=== PATIENT | female | born 1955 | race Caucasian/White ===

== ENCOUNTER 2018-09-11 01:12 | Day surgery (SDC) | payer OTHER ==
[~2018-09-11] VITALS: Ht 172.7 cm; Wt 94.3 kg
[~2018-09-11 01:12] MED LIST: ADVAIR INHALER; ALBUTEROL; AMLO-127 PO; ASPIRIN; DULERAPT INH; ENAL20TA99 PO; ENALAPRIL; HCTZ; HCTZ25 PO; LEVO50TA80 PO; LOSA-54 PO; MON4 PO; MONT10TA4 PO; NAPR220C12 PO; OMEP40CA48 PO; PROP100T2 PO; VER100 PO; VERAPAMIL
[2018-09-11] MEDS ORDERED: PROPOFOL EMUL(*) 10MG/ML 20 ML 20 ML ONE (07:03)
[2018-09-11 07:21] VITALS: BP 132/80
[2018-09-11] MEDS ORDERED: LIDOCAINE/SOD BICARB 8.4% SYR ID ONE (07:40)
[2018-09-11] MEDS ORDERED: NORMOSOL R SOLN(*) 1000 ML BAG 1,000 ML IV PRN (07:40)
[2018-09-11 08:46] VITALS: BP 127/77
[2018-09-11 09:00] VITALS: BP 117/77
--- NOTE | 2018-09-11 09:00 | Short(Outpt) Discharge Summary ---
Discharge Summary Reason for Hosp/Final Diag: (1) Positive colorectal cancer screening using Cologuard test Status: Chronic Hospital Course & Plan: Colonoscopy completed without problems, normal (other than sigmoid diverticulosis) Departure Discharge to: Home, Self Care Discharge Instructions Home Meds Reported Medications Omeprazole (OMEPRAZOLE) 40 Mg Capsule.dr, 40 MG PO QDAY, CAP 08/19/18 Amlodipine Besylate (AMLODIPINE BESYLATE) 10 Mg Tablet, 1 TAB PO QDAY, TAB 08/19/18 Losartan/Hydrochlorothiazide (LOSARTAN-HCTZ 100-25 MG TAB) 1 Each Tablet, 1 EACH PO QDAY 08/19/18 Levothyroxine Sodium (SYNTHROID) 50 Mcg Tablet, 50 MCG PO QDAY, TAB 08/19/18 Mometasone/Formoterol (DULERA 200 MCG/5 MCG INHALER) 13 Gm Inh, 13 GM INH BID, INH 08/19/18 Naproxen Sodium (ALEVE) 220 Mg Capsule, 500 MG PO DAILY, CAPSULE 08/19/18 Montelukast Sodium (MONTELUKAST SODIUM) 10 Mg Tablet, 1 TAB PO QDAY, TAB 08/19/18 Hydrochlorothiazide (Hydrochlorothiazide) 25 Mg Tab, 25 MG PO QDAY, 0 Refills 11/03/09 [Albuterol] No Conflict Check 11/03/09 Diet: Regular Activity: As Tolerated Special Instructions: Your colonoscopy was completed without any problems and your prep was excellent (Good Job!!). I didn't find any polyps or cancers. The only finding was diverticuli in your sigmoid colon (condition is called diverticulosis). 40% of people have diverticulosis and 90% of them have no problems. 10% of people with diverticulosis can get an infection called diverticulitis which is normally treated with antibiotics without problems but occasionally requires surgery. I recommend that you eat a serving of fruit with breakfast, a serving of fruit and a serving of vegetables with lunch and two servings of vegetables with dinner. You can also eat a daily fiber supplement such as metamucil or citrucel to decrease the pressure in your colon to move the stool through to prevent more diverticuli from developing. I recommend that you have another colonoscopy in 10 years for continued colorectal cancer screening. VERNELL HERNANDEZ MD Sep 11, 2018 09:00
--- NOTE | 2018-09-11 09:00 | NUR ---
VSS. TOLERATING PO INTAKE.
--- NOTE | 2018-09-11 09:05 | NUR ---
PT. REQUESTING DISCHARGE. POST TIVA X20 MINS. WILL ALLOW DISCHARGE.
[2018-09-11 09:07] VITALS: BP 151/89
[2018-09-11 09:09] VITALS: BP 104/84
--- NOTE | 2018-09-11 09:16 | NUR ---
DISCHARGE INSTRUCTIONS REVIEWED.
== END 2018-09-11 09:30 | disposition home or self-care (01) ==
LOC: OR 01:12
PROVIDERS: ATTEND Surgery
DX: Z12.11 Encounter for screening for malignant neoplasm of colon (principal); K57.30 Diverticulosis of large intestine without perforation or abscess without bleeding
CPT/HCPCS: 00812; 45378; J2704

== ENCOUNTER 2018-12-14 08:41 | Inpatient (IN) | payer OTHER ==
[~2018-12-14] VITALS: Ht 171.4 cm; Wt 109.8 kg
[2018-12-14] MEDS ORDERED: NS(*) 0.9% 1000 ML BAG 1,000 ML IV ONE ×2 (09:00→09:50)
[2018-12-14] MEDS ORDERED: ONDANSETRON 4 MG/2 ML VIAL IVP ONE (09:00)
--- NOTE | 2018-12-14 09:00 | ER Report ---
History and Physical Time Seen By MD: 08:56 Hx. of Stated Complaint: abd pain HPI/ROS CHIEF COMPLAINT: Abdominal pain. HISTORY OF PRESENT ILLNESS: Patient is a 63-year-old female who presents to emergency department with approximately 24 hours of severe bilateral lower quadrant abdominal pain comes in waves. Associated with nausea vomiting and diarrhea. Patient states that she thinks she may have gotten food poisoning. She states she ate coleslaw from a deli and then a few hours later developed nausea vomiting and diarrhea with abdominal cramping this is persisted since Sunday morning around 5 AM until this morning. She states she noticed no mucus in her stool but did notice some bright red blood per rectum with the last bowel movement this morning. Patient states that her did eat the same coleslaw but was unaffected. Patient denies any prior history of abdominal problems including diverticulitis. The only abdominal surgery the patient had was a hysterectomy. She ports fevers and chills but her in the emergency department she is currently afebrile. Pain is severe. No specific palliative or provoking factors elicited. Patient did travel to [place] for Mother's Day but no other significant travel. No other recent antibiotic use. REVIEW OF SYSTEMS: Constitutional: Fevers and chills Eyes: No discharge. ENT: No sore throat. Cardiovascular: No chest pain, no palpitations. Respiratory: No cough, no shortness of breath. Gastrointestinal: Sebastian cramping, nausea vomiting diarrhea, hematochezia Genitourinary: No hematuria. Musculoskeletal: No back pain. Skin: No rashes. Neurological: No headache. Allergies: Coded Allergies: No Known Drug Allergies (Verified , 12/14/18) Uncoded Allergies: ENVIRONMENTAL (Allergy, Mild, 06/03/07) Home Meds Reported Medications Omeprazole (OMEPRAZOLE) 40 Mg Capsule.dr, 40 MG PO QDAY, CAP 08/19/18 Amlodipine Besylate (AMLODIPINE BESYLATE) 10 Mg Tablet, 1 TAB PO QDAY, TAB 08/19/18 Losartan/Hydrochlorothiazide (LOSARTAN-HCTZ 100-25 MG TAB) 1 Each Tablet, 1 EACH PO QDAY 08/19/18 Levothyroxine Sodium (SYNTHROID) 50 Mcg Tablet, 50 MCG PO QDAY, TAB 08/19/18 Mometasone/Formoterol (DULERA 200 MCG/5 MCG INHALER) 13 Gm Inh, 13 GM INH BID, INH 08/19/18 Naproxen Sodium (ALEVE) 220 Mg Capsule, 500 MG PO DAILY, CAPSULE 08/19/18 Montelukast Sodium (MONTELUKAST SODIUM) 10 Mg Tablet, 1 TAB PO QDAY, TAB 08/19/18 Hydrochlorothiazide (Hydrochlorothiazide) 25 Mg Tab, 25 MG PO QDAY, 0 Refills 11/03/09 [Albuterol] No Conflict Check 11/03/09 Past Medical/Surgical History Past medical history for hypertension, reactive airways disease, history of left knee scope and meniscus repair, history of cataract surgery, history of hysterectomy Hx Smoking: Yes (QUIT 32 YRS AGO, SMOKED FOR 3 YRS) Smoking Status: Former Smoker Exposure to Second Hand Smoke?: No Hx Substance Use Disorder: No Hx Alcohol Use: Yes Constitutional Vital Sign - Last 24 Hours 12/14/18 12/14/18 12/14/18 12/14/18 08:41 08:45 08:49 09:00 Temp 97.7 Pulse 89 85 Resp 22 B/P (MAP) 113/82 (92) 113/82 124/72 (89) Pulse Ox 99 97 O2 Delivery Room Air Room Air 12/14/18 12/14/18 12/14/18 12/14/18 09:11 09:27 09:42 09:45 Pulse 82 B/P (MAP) 110/67 (81) 133/73 (93) 133/84 (100) Pulse Ox 98 88 O2 Delivery Room Air Room Air 12/14/18 12/14/18 12/14/18 12/14/18 09:50 10:00 10:02 10:07 Pulse 97 99 B/P (MAP) 127/83 (98) Pulse Ox 91 89 O2 Delivery Nasal Cannula Nasal Cannula O2 Flow Rate 1.0 1 12/14/18 12/14/18 12/14/18 12/14/18 10:15 10:30 10:37 10:42 Pulse 110 107 B/P (MAP) 141/80 (100) 144/83 (103) Pulse Ox 95 95 O2 Delivery Nasal Cannula Nasal Cannula 12/14/18 10:45 B/P (MAP) 122/82 (95) Physical Exam General/Constitutional: Patient is awake, alert, nontoxic and in no acute respiratory distress. Head: Normocephalic and atraumatic. Eyes: Conjunctival clear, Pupils are equal and reactive to light.Sclera are clear and anicteric. Ears:External canals are clear. Tympanic membranes are clear with normal landmarks and light reflex. Nares: No rhinorrhea or bleeding. Turbinates are pink and moist. Oropharyngeal: Mucous membranes are moist. There is no pharyngeal erythema or exudate. Uvula is midline and symmetrical. Neck: Supple, no adenopathy. Cardiovascular: Heart is regular rate and rhythm without audible murmurs, rubs or gallops. Pulmonary: Lungs are clear to auscultation bilaterally. There are no wheezes, rales, or rhonchi. Chest rise is symmetrical Abdomen: Markedly decreased abdominal sounds noted with listening over approximately 60 seconds. She guards in severely tender bilateral lower quadrants. Rectal exam reveals positive for gross red blood. Hemoccult sample was not sent as this would return false negative with gross blood. Extremities: No gross deformities, No peripheral cyanosis. Able to move all 4 extremities. Neuro: Alert and oriented X3, Patient has normal gait. Skin: No rashes, skin is warm dry and well perfused. Medical Decision Making Data Points Result Diagram: 12/14/18 0906 12/14/18 0906 Laboratory Hematology Test 12/14/18 09:06 Red Blood Count 5.51 M/uL (4.17-5.56) Mean Corpuscular Volume 91.6 fL (80.0-96.0) Mean Corpuscular Hemoglobin 31.8 pg (26.0-33.0) Mean Corpuscular Hemoglobin Concent 34.7 g/dL (32.0-36.0) Red Cell Distribution Width 12.8 % (11.5-14.5) Mean Platelet Volume 9.6 fL (7.2-11.1) Neutrophils (%) (Auto) 86.4 % (39.4-72.5) Lymphocytes (%) (Auto) 8.3 % (17.6-49.6) Monocytes (%) (Auto) 5.0 % (4.1-12.4) Eosinophils (%) (Auto) 0.1 % (0.4-6.7) Basophils (%) (Auto) 0.2 % (0.3-1.4) Nucleated RBC Relative Count (auto) 0.0 /100WBC Neutrophils # (Auto) 18.4 K/uL (2.0-7.4) Lymphocytes # (Auto) 1.8 K/uL (1.3-3.6) Monocytes # (Auto) 1.1 K/uL (0.3-1.0) Eosinophils # (Auto) 0.0 K/uL (0.0-0.5) Basophils # (Auto) 0.0 K/uL (0.0-0.1) Nucleated RBC Absolute Count (auto) 0.00 K/uL Peripheral Blood Smear Yes Y/N Sodium Level 141 mmol/L (137-145) Potassium Level 3.2 mmol/L (3.5-5.0) Chloride Level 100 mmol/L (98-107) Carbon Dioxide Level 22 mmol/L (22-31) Blood Urea Nitrogen 18 mg/dl (7-18) Creatinine 1.00 mg/dl (0.52-1.04) Glomerular Filtration Rate Calc 56.2 Random Glucose 150 mg/dl (75-110) Calcium Level 9.9 mg/dl (8.4-10.2) Total Bilirubin 1.4 mg/dl (0.2-1.3) Aspartate Amino Transf (AST/SGOT) 23 U/L (0-35) Alanine Aminotransferase (ALT/SGPT) 23 U/L (0-56) Alkaline Phosphatase 105 U/L (0-126) Total Protein 8.4 g/dl (6.3-8.2) Albumin 4.7 g/dl (3.5-5.0) Lipase 45 U/L (23-300) Helicobacter pylori IgG Antibody Negative (NEGATIVE) Chemistry Test 12/14/18 09:06 White Blood Count 21.3 k/uL (4.5-11.0) Red Blood Count 5.51 M/uL (4.17-5.56) Hemoglobin 17.5 g/dL (12.0-16.0) Hematocrit 50.4 % (34.0-47.0) Mean Corpuscular Volume 91.6 fL (80.0-96.0) Mean Corpuscular Hemoglobin 31.8 pg (26.0-33.0) Mean Corpuscular Hemoglobin Concent 34.7 g/dL (32.0-36.0) Red Cell Distribution Width 12.8 % (11.5-14.5) Platelet Count 426 K/uL (150-450) Mean Platelet Volume 9.6 fL (7.2-11.1) Neutrophils (%) (Auto) 86.4 % (39.4-72.5) Lymphocytes (%) (Auto) 8.3 % (17.6-49.6) Monocytes (%) (Auto) 5.0 % (4.1-12.4) Eosinophils (%) (Auto) 0.1 % (0.4-6.7) Basophils (%) (Auto) 0.2 % (0.3-1.4) Nucleated RBC Relative Count (auto) 0.0 /100WBC Neutrophils # (Auto) 18.4 K/uL (2.0-7.4) Lymphocytes # (Auto) 1.8 K/uL (1.3-3.6) Monocytes # (Auto) 1.1 K/uL (0.3-1.0) Eosinophils # (Auto) 0.0 K/uL (0.0-0.5) Basophils # (Auto) 0.0 K/uL (0.0-0.1) Nucleated RBC Absolute Count (auto) 0.00 K/uL Peripheral Blood Smear Yes Y/N Glomerular Filtration Rate Calc 56.2 Calcium Level 9.9 mg/dl (8.4-10.2) Total Bilirubin 1.4 mg/dl (0.2-1.3) Aspartate Amino Transf (AST/SGOT) 23 U/L (0-35) Alanine Aminotransferase (ALT/SGPT) 23 U/L (0-56) Alkaline Phosphatase 105 U/L (0-126) Total Protein 8.4 g/dl (6.3-8.2) Albumin 4.7 g/dl (3.5-5.0) Lipase 45 U/L (23-300) Helicobacter pylori IgG Antibody Negative (NEGATIVE) EKG/Imaging Imaging CT scan is consistent with acute uncomplicated sigmoid diverticulitis. ED Course/Re-evaluation Clinical Indication for ER IV: Hydration, IV Access ED Course 12/14/2018 9:19:47 am patient with severe crampy lower abdominal pain along with bright red blood per rectum. Elevated white count at 21,000 with 86% neutrophils. Because of the gross blood Hemoccult was not sent as our specific lab test were tested false negative with the presence of gross blood. Patient received 4 mg of Zofran 4 mg of IV morphine with minimal reduction in pain. We will give 1 mg of Dilaudid for pain awaiting results of CT scan. If able to ob tain stool sample for white blood cell count and stool culture and C. difficile. Differential diagnosis includes but is not limited to infectious colitis, diverticulitis, mesenteric adenitis, acute appendicitis, inflammatory bowel disease, food poisoning, though this last diagnosis is fairly unlikely given the timeframe of an duration of patient's symptoms 12/14/2018 10:13:[address] scan consistent with acute uncomplicated sigmoid diverticulitis. We'll treat with IV Zosyn 4.5 g IV, we'll continue pain management. We will discuss case with hospitalist as I feel patient requires admission for IV antibiotics and pain control Decision to Disposition Date: Dec 14, 2018 Decision to Disposition Time: 10:25 Depart Departure Latest Vital Signs Vital Signs Date Time Temp Pulse Resp B/P (MAP) Pulse Ox O2 Delivery O2 Flow Rate FiO2 12/14/18 10:45 122/82 (95) 12/14/18 10:42 107 95 Nasal Cannula 12/14/18 10:02 1 12/14/18 08:49 97.7 22 Impression: Primary Impression: Diverticulitis Condition: Improved Disposition: Admitted from ER (To [facility]) Referrals: DEENA MIJARES (PCP) LEVY TURNER MD Dec 14, 2018 09:00
[2018-12-14] MEDS ORDERED: MORPHINE 4 MG/ML SDV IVP ONE (09:05)
[2018-12-14 09:09] LABS: PLATELET COUNT, AUTOMATED 426 K/uL (150-450)
[2018-12-14] MEDS ORDERED: IOPAMIDOL 76% 100 ML INFUS BTL 100 ML ONE (09:14)
[2018-12-14] MEDS ORDERED: HYDROMORPHONE HCL 1 MG/ML SYRINGE IVP ONE ×2 (09:25→09:50)
[2018-12-14] MEDS ORDERED: PIPERACILLIN/TAZO* 4.5 GM VIAL 4.5 GM in NS(*) 0.9% 100 ML MINI-BAG 100 ML IVPB ONE (10:15)
--- NOTE | 2018-12-14 10:24 | RADIOLOGY IMAGING REPORT ---
[place] [facility] [place] NAME[place] Sherron So : 1955 MR: [id number] V: [id number] EXAM DATE: ORDERING PHYSICIAN: LEVY TURNER TECHNOLOGIST: Location: [facility] [place] Patient: Sherron So : 1955 Visit/Account:[id number] Date of Sevice: 12/14/2018 CT ABDOMEN PELVIS W/ CON HISTORY: , lower ab pain TECHNIQUE: CT abdomen and pelvis with intravenous contrast. One of the following dose optimization techniques was utilized in the performance of this exam: autom ated exposure control; adjustment of the mA and/or kV according to patient size; or use of iterative reconstruction technique. Specific details can be referenced in the facility?s radiology CT exam oper ational policy. CONTRAST: 75 mL Isovue-370 COMPARISON: None. FINDINGS: Visualized lung bases: Within left lower lobe, image #27 there is a 4 mm pleural-based noncalcified pulmonary nodule. Within the right lower lobe, image 8 there is a 7 mm noncalcified pulmonary nodule. Within the right lower lobe, image 25 there is a 4 mm noncalcified pulmonary nodule. No infiltrate i s identified. Hepatobiliary: Negative. Spleen: Negative. Adrenals: Negative. Pancreas: Negative. Kidneys/: There is malrotation of the right kidney. No other abnormalities are noted. GI: Within the pelvis, there is extensive diverticular disease. There is an inflamed segment of sigm oid colon consistent with diverticulitis. No abscess or perforation is identified. There is no eviden ce of obstruction. Mild wall thickening is noted within the left colon which may be due to incomplete distention versus mild colitis. There is lipomatous hypertrophy of the ileocecal valve. Vessels/spaces/nodes: Negative. Bones/soft tissues: Negative. IMPRESSION: 1. Uncomplicated sigmoid diverticulitis 2. 3 noncalcified subcentimeter pulmonary nodules are present as described, the largest measures 7 mm . Recommend follow-up according to Fleischner criteria. 3. Additional incidental findings as described. Results were discussed with LEVY TURNER at 12/14/2018 10:18 AM. Fleischner society follow-up guidelines for newly detected incidental nodules in persons 35 years of age or older. *These recommendations do not apply to lung cancer screening, patients with immunosuppression, or pat ients with known primary malignancy. INCOMPLETE CHEST If nodule size is less than 6 mm: No further investigation on the basis of the estimated low risk of malignancy. If nodule size is 6-8 mm: Follow-up CT of the complete chest after 3-12 months (depending on clinical risk), to confirm stabili ty and to evaluate additional findings. In the case of large or very suspicious nodules, dedicated complete thoracic CT is recommended. Glenroy H, Isael DP, Justice JONES, et al. Guidelines for Management of Incidental Pulmonary Nodules Dete cted on CT Images: From the Fleischner Society 2017. Radiology. Report Dictated By: Jordan Patel at 12/14/2018 10:02 AM Report E-Signed By: Jordan Patel at 12/14/2018 10:18 AM WSN:[id number]
[2018-12-14 11:24] VITALS: BP 147/93
[2018-12-14] MEDS ORDERED: NALOXONE HCL 0.4 MG/ML VIAL IVP PRN (12:40)
[2018-12-14] MEDS ORDERED: INFLUENZA VIRUS VAC 0.5ML SYR IM ONLY ONE (12:40)
[2018-12-14] MEDS ORDERED: ALBU8.5H INH (12:41)
[2018-12-14] MEDS ORDERED: NAPR-733 PO (12:43)
[2018-12-14] MEDS ORDERED: HYDROMORPHON PCA10MG/50ML(CII) 10 MG/50 ML PLAST..BAG IV PRN (14:50)
[2018-12-14] MEDS: NS(*) 0.9% 1000 ML BAG 1,000 ML IV PRN (15:11)
[2018-12-14] MEDS: PIPERACILLIN/TAZO*3.375GM VIAL 3.375 GM in NS(*) 0.9% 100 ML MINI-BAG 100 ML IVPB SCH ×2 (16:43→22:44)
[2018-12-14 18:58] VITALS: BP 100/69
[2018-12-14 22:52] VITALS: BP 115/70
[2018-12-14] MEDS: ONDANSETRON 4 MG/2 ML VIAL IVP PRN (23:34)
[2018-12-15] VITALS (7 sets, daily range): BP systolic 104–131; BP diastolic 64–72
[2018-12-15] MEDS: NS(*) 0.9% 1000 ML BAG 1,000 ML IV PRN ×3 (00:37→22:36)
[2018-12-15] MEDS: PIPERACILLIN/TAZO*3.375GM VIAL 3.375 GM in NS(*) 0.9% 100 ML MINI-BAG 100 ML IVPB SCH ×4 (04:28→22:30)
[2018-12-15] MEDS: MOMETASONE/FORMOT 200MCG/5 MCG IH SCH ×2 (08:05→17:38)
[2018-12-15] MEDS ORDERED: ALBUTEROL 8 GM INHALER INH PRN (08:05)
[2018-12-15 08:22] LABS: PLATELET COUNT, AUTOMATED 246 K/uL (150-450)
[2018-12-15] MEDS: ONDANSETRON 4 MG/2 ML VIAL IVP PRN ×2 (08:26→14:58)
--- NOTE | 2018-12-15 08:33 | History & Physical ---
History of Present Illness Chief Complaint LATE ENTRY (Patient seen and examined at approximately 1230 on 12/14/18): Abdominal pain, nausea, vomiting and diarrhea. History of Present Illness The patient is a 63 year old female with PMH significant for HTN, hypothyroidism and asthma who presents with abdominal pain, fever and chills for several days. She has also had nausea, vomiting and bloody diarrhea. The patient states she ate chicken and cold slaw from [employer] on evening. Early Sunday morning (approx. 0400) she began having nausea, vomiting and diarrhea. She then developed significant lower abdominal pain. She did sleep some on Sunday night and then was once again awakened by severe abdominal pain. She presented to [facility] on Sunday am for evaluation. Work up in the ER showed an elevated WBC and CT of the abdomen/pelvis showed uncomplicated diverticulitis. She was recommended for admission for further evaluation and treatment. History Problems: (1) Asthma Status: Chronic (2) HTN (hypertension) Status: Chronic (3) Diverticulosis Status: Chronic (4) Hypothyroidism Status: Chronic Home Meds Reported Medications Naproxen (NAPROXEN) 500 Mg Tablet.dr, 1 TAB PO BID PRN for PAIN 12/14/18 Albuterol Sulfate 90 Mcg/Act (PROAIR HFA 90 MCG/ACT) 8.5 Gm Hfa.aer.ad, 1 INH INH Q4H PRN for shortness of breath 12/14/18 Omeprazole (OMEPRAZOLE) 40 Mg Capsule.dr, 40 MG PO QDAY, CAP 08/19/18 Amlodipine Besylate (AMLODIPINE BESYLATE) 10 Mg Tablet, 1 TAB PO QDAY, TAB 08/19/18 Losartan/Hydrochlorothiazide (LOSARTAN-HCTZ 100-25 MG TAB) 1 Each Tablet, 1 EACH PO QDAY 08/19/18 Levothyroxine Sodium (SYNTHROID) 50 Mcg Tablet, 50 MCG PO QDAY, TAB 08/19/18 Mometasone/Formoterol (DULERA 200 MCG/5 MCG INHALER) 13 Gm Inh, 13 GM INH BID, INH 08/19/18 Montelukast Sodium (MONTELUKAST SODIUM) 10 Mg Tablet, 1 TAB PO QDAY, TAB 08/19/18 Hydrochlorothiazide (Hydrochlorothiazide) 25 Mg Tab, 25 MG PO QDAY, 0 Refills 11/03/09 Discontinued Reported Medications Naproxen Sodium (ALEVE) 220 Mg Capsule, 500 MG PO DAILY, CAPSULE 08/19/18 [Albuterol] No Conflict Check 11/03/09 Allergies: Coded Allergies: No Known Drug Allergies (Verified , 12/14/18) Uncoded Allergies: ENVIRONMENTAL (Allergy, Mild, 06/03/07) Patient History: FH: COPD (chronic obstructive pulmonary disease) FATHER, , Age:81 FH: asthma BROTHER OR SISTER FH: heart disease FATHER, , Age:81 FH: pneumonia MOTHER FH: scoliosis MOTHER High blood pressure FATHER, , Age:81 BROTHER OR SISTER Other Social/Family Hx The patient is and lives with her in [place]. Hx Smoking: Yes (QUIT 32 YRS AGO, SMOKED FOR 3 YRS) Smoking Status: Former Smoker Exposure to Second Hand Smoke?: No Caffeine Intake: Coffee, Tea Caffeine/Cups Per Day: 1 CCD, 2 LARGE 32 OUNCES Hx Alcohol Use: Yes Hx Substance Use Disorder: No Social Drug Use: Never History of IV Drug Use: No Review of Systems All Systems Reviewed/Normal: Yes, Except as Noted Constitutional: Chills Neurological: Weakness Gastrointestinal: Nausea, Vomiting, Diarrhea Exam Vital Signs Vital Signs Date Time Temp Pulse Resp B/P (MAP) Pulse Ox O2 Delivery O2 Flow Rate FiO2 12/15/18 08:02 91 12/15/18 06:57 18 12/15/18 06:55 98.7 90 119/71 (87) Nasal Cannula 1.5 General Appearance: Alert, Awake, Other (The patient appeared ill. She appeared to be in discomfort.) Neuro: No Gross deficits Eyes: PERRLA Cardiovascular: Other (Tachy, regular.) Respiratory: Clear to Auscultation GI: Other (Abdomen is soft, slightly distended, diffusely tender to palpation.) Extremities: Warm, Perfused Integumentary: Skin Intact without Lesion / Mass Psych: Appropriate Mood & Affect Medical Decision Making Data Points Result Diagram: 12/14/18 0912/14/18 09 Item Value Date Time Patient Controlled Analgesia R (PATRICIA) In Process 12/14/18 1301 Calcium Level 9.9 mg/dl 12/14/18 0906 Total Bilirubin 1.4 mg/dl H 12/14/18 0906 Aspartate Amino Transf (AST/SGOT) 23 U/L 12/14/18 0906 Alanine Aminotransferase (ALT/SGPT) 23 U/L 12/14/18 0906 Alkaline Phosphatase 105 U/L 12/14/18 0906 Total Protein 8.4 g/dl H 12/14/18 0906 Albumin 4.7 g/dl 12/14/18 0906 Lipase 45 U/L 12/14/18 09 Helicobacter pylori IgG Antibody Negative 12/14/18 09 EKG / Imaging Imaging [place] [facility] [place] NAME: Sherron So : 1955 MR: [id number] V: [id number] EXAM DATE: ORDERING PHYSICIAN: LEVY TURNER TECHNOLOGIST: Location: [facility] - [place], [place] Patient: Sherron So : 1955 Visit/Account:[id number] Date of Sevice: 12/14/2018 CT ABDOMEN PELVIS W/ CON HISTORY: , lower ab pain TECHNIQUE: CT abdomen and pelvis with intravenous contrast. One of the following dose optimization techniques was utilized in the performance of this exam: automated exposure control; adjustment of the mA and/or kV according to patient size; or use of iterative reconstruction technique. Specific details can be referenced in the facility?s radiology CT exam operational policy. CONTRAST: 75 mL Isovue-370 COMPARISON: None. FINDINGS: Visualized lung bases: Within left lower lobe, image #27 there is a 4 mm pleural-based noncalcified pulmonary nodule. Within the right lower lobe, image 8 there is a 7 mm noncalcified pulmonary nodule. Within the right lower lobe, image 25 there is a 4 mm noncalcified pulmonary nodule. No infiltrate is identified. Hepatobiliary: Negative. Spleen: Negative. Adrenals: Negative. Pancreas: Negative. Kidneys/: There is malrotation of the right kidney. No other abnormalities are noted. GI: Within the pelvis, there is extensive diverticular disease. There is an inflamed segment of sigmoid colon consistent with diverticulitis. No abscess or perforation is identified. There is no evidence of obstruction. Mild wall thickening is noted within the left colon which may be due to incomplete distention versus mild colitis. There is lipomatous hypertrophy of the ileocecal valve. Vessels/spaces/nodes: Negative. Bones/soft tissues: Negative. IMPRESSION: 1. Uncomplicated sigmoid diverticulitis 2. 3 noncalcified subcentimeter pulmonary nodules are present as described, the largest measures 7 mm. Recommend follow-up according to Fleischner criteria. 3. Additional incidental findings as described. Results were discussed with LEVY TURNER at 12/14/2018 10:18 AM. Fleischner society follow-up guidelines for newly detected incidental nodules in persons 35 years of age or older. *These recommendations do not apply to lung cancer screening, patients with immunosuppression, or patients with known primary malignancy. INCOMPLETE CHEST If nodule size is less than 6 mm: No further investigation on the basis of the estimated low risk of malignancy. If nodule size is 6-8 mm: Follow-up CT of the complete chest after 3-12 months (depending on clinical risk), to confirm stability and to evaluate additional findings. In the case of large or very suspicious nodules, dedicated complete thoracic CT is recommended. Glenroy H, Isael DP, Justice JM, et al. Guidelines for Management of Incidental Pulmonary Nodules Detected on CT Images: From the Fleischner Society 2017. Radiology. Report Dictated By: Jordan Patel at 12/14/2018 10:02 AM Report E-Signed By: Jordan Patel at 12/14/2018 10:18 AM WSN:[id number] Pre-Admit Course Medical Record Review: Yes Assessment and Plan Problems: (1) Diverticulitis Status: Acute Assessment & Plan: Will admit, hydrate, and continue on Zosyn. Antiemetics prn. Dilaudid HEAD PASTRY CHEF ordered. Monitor labs. Clear liquids as tolerated. Will not place on Lovenox due to bloody stools. SCDs ordered. Stool studies ordered in ER. (2) HTN (hypertension) Status: Chronic Assessment & Plan: Amlodipine ordered with parameters. (3) Asthma Status: Chronic Assessment & Plan: Albuterol and Dulera inhalers ordered. (4) Hypothyroidism Status: Chronic Assessment & Plan: Levothyroxine ordered. Time Spent on Plan of Care: < 30 min Copies to: DEENA MIJARES ; Venous Thromboembolism Antithrombotics Is Pt On Any Antithrombotics?: No Prophylaxis Tx Contraindicated Pharmacological Contraindicati: Active Bleeding Exam Sepsis Risk: No Definite Risk SIRISHA OLSON MD Dec 15, 2018 08:33
[2018-12-15] MEDS ORDERED: amLODIPine BESYL(*) 5 MG TAB PO SCH ×2 (09:00)
[2018-12-15] MEDS ORDERED: MONTELUKAST SODIUM 10 MG TAB PO SCH (09:00)
[2018-12-15] MEDS ORDERED: PANTOPRAZOLE SOD 40 MG TABEC PO SCH (09:00)
[2018-12-15] MEDS: METOCLOPRAMIDE 10 MG/2 ML SDV IVP PRN ×2 (11:40→18:20)
[2018-12-15] MEDS: KCL (*) 20 MEQ/100 ML PREMIX 100 ML IV SCH ×2 (12:22→15:23)
--- NOTE | 2018-12-15 13:54 | RADIOLOGY IMAGING REPORT ---
FACILITY: [facility] PATIENT NAME: Sherron So : 1955 MR: [id number] V: [id number] EXAM DATE: ORDERING PHYSICIAN: FOREIGN PRIEST TECHNOLOGIST: Location: [facility] [place] Patient: Sherron So : 1955 Visit/Account:[id number] Date of Sevice: 12/15/2018 KUB SINGLE VIEW ABDOMEN HISTORY: emesis Emesis. FINDINGS: Dilated loops of small bowel throughout the left upper and central abdomen. Nondilated partially vis ualized right colon. No air in the rectum. No pneumatosis. No free air noted. No abdominal mass lesions. Lung base images are clear. IMPRESSION: 1. KUB consistent with a small bowel obstruction. Report Dictated By: Romeo Sauceda MD at 12/15/2018 1:47 PM Report E-Signed By: Romeo Sauceda MD at 12/15/2018 1:48 PM WSN:[id number]
[2018-12-15] MEDS ORDERED: LORazepam 2 MG/ML VIAL IVP PRN (15:15)
--- NOTE | 2018-12-15 15:39 | Hospitalist Progress Note ---
Subjective Progress Notes Subjective Increasing bilious vomit this am, some abdominal distension. KUB shows dilated loops SB Patient Complains of: Gastrointestinal: Nausea, Vomiting; No Flatus, No Bowel Movement Physical Exam Vital Signs Date Time Temp Pulse Resp B/P (MAP) Pulse Ox O2 Delivery O2 Flow Rate FiO2 12/15/18 15:01 99.4 88 18 119/67 (84) 95 1.0 12/15/18 11:13 Nasal Cannula Intake and Output 12/15/18 07:02 Intake Total 3830 ml Balance 3830 ml Intake Oral 580 ml IV Total 3250 ml # Voids 4 General Appearance: Awake, Afebrile Neuro: No Gross deficits Cardiovascular: Normal Rhythm & Peripheral Pulses Respiratory: No Respiratory Distress GI: Other (distended, tympanic, hypoactive bowel sounds) Extremities: Soft and Non Tender, Warm, Pulses, Perfused Result Diagram: 12/15/1881212/15/18812 Assessment and Plan Problems: (1) Diverticulitis Status: Acute Assessment & Plan: Will admit, hydrate, and continue on Zosyn. Antiemetics prn. SCDs ordered. Stool studies ordered in ER but no BM or flatus since admission, see below. (2) Ileus Assessment & Plan: Ileus vs SBO, dilated loops SB on KUB. NG tube placed to LIWS, NPO. (3) HTN (hypertension) Status: Chronic Assessment & Plan: Amlodipine ordered with parameters. (4) Asthma Status: Chronic Assessment & Plan: Albuterol and Dulera inhalers ordered. (5) Hypothyroidism Status: Chronic Assessment & Plan: Levothyroxine ordered. Exam Sepsis Risk: No Definite Risk FOREIGN HOLDER DO Dec 15, 2018 15:39
--- NOTE | 2018-12-15 15:58 | General Surgery Consultation ---
History of Present Illness Reason for Consult abd pain, vomiting Chief Complaint abd pain, vomiting History of Present Illness 63 yo f with lower abd pain that began 2 days ago. she has had vomiting, diarrhea, dark stool and brbpr. took pepto. last bm was yesterday. she felt feverish. no diverticulitis in the past. colonoscopy a few months ago showed diverticulosis. History Home Meds Reported Medications Naproxen (NAPROXEN) 500 Mg Tablet.dr, 1 TAB PO BID PRN for PAIN 12/14/18 Albuterol Sulfate 90 Mcg/Act (PROAIR HFA 90 MCG/ACT) 8.5 Gm Hfa.aer.ad, 1 INH INH Q4H PRN for shortness of breath 12/14/18 Omeprazole (OMEPRAZOLE) 40 Mg Capsule.dr, 40 MG PO QDAY, CAP 08/19/18 Amlodipine Besylate (AMLODIPINE BESYLATE) 10 Mg Tablet, 1 TAB PO QDAY, TAB 08/19/18 Losartan/Hydrochlorothiazide (LOSARTAN-HCTZ 100-25 MG TAB) 1 Each Tablet, 1 EACH PO QDAY 08/19/18 Levothyroxine Sodium (SYNTHROID) 50 Mcg Tablet, 50 MCG PO QDAY, TAB 08/19/18 Mometasone/Formoterol (DULERA 200 MCG/5 MCG INHALER) 13 Gm Inh, 13 GM INH BID, INH 08/19/18 Montelukast Sodium (MONTELUKAST SODIUM) 10 Mg Tablet, 1 TAB PO QDAY, TAB 08/19/18 Hydrochlorothiazide (Hydrochlorothiazide) 25 Mg Tab, 25 MG PO QDAY, 0 Refills 11/03/09 Discontinued Reported Medications Naproxen Sodium (ALEVE) 220 Mg Capsule, 500 MG PO DAILY, CAPSULE 08/19/18 [Albuterol] No Conflict Check 11/03/09 Allergies: Coded Allergies: No Known Drug Allergies (Verified , 12/14/18) Uncoded Allergies: ENVIRONMENTAL (Allergy, Mild, 06/03/07) Family History: FH: COPD (chronic obstructive pulmonary disease) FATHER, , Age:81 FH: asthma BROTHER OR SISTER FH: heart disease FATHER, , Age:81 FH: pneumonia MOTHER FH: scoliosis MOTHER High blood pressure FATHER, , Age:81 BROTHER OR SISTER Review of Systems Constitutional: Other (per hpi) Exam Vital Signs Vital Signs Date Time Temp Pulse Resp B/P (MAP) Pulse Ox O2 Delivery O2 Flow Rate FiO2 12/15/18 15:01 99.4 88 18 119/67 (84) 95 1.0 12/15/18 11:13 Nasal Cannula General Appearance: Alert, Awake, No Acute Distress Neuro: No Gross deficits Eyes: Other (per, eomi) ENT: Moist Mucous Membranes Neck: No Masses Cardiovascular: Other (reg rate) Respiratory: No Respiratory Distress GI: Other (soft, some ttp that she believes is soreness from vomiting, distended) Extremities: Other (no pitting edema) Integumentary: Skin Intact without Lesion / Mass Psych: Alert & Oriented X3, Appropriate Mood & Affect Medical Decision Making Data Points Result Diagram: 12/15/1881212/15/18812 Assessment and Plan Problems: (1) Diverticulitis Status: Acute Assessment & Plan: no obstruction on ct yesterday. pt now has ileus or sbo secondary to diverticulitis. plan: iv abx, ivf, ngt, npo, serial exams/labs/xrays. sbo will likely resolve with treatment of diverticulitis; however, we did discuss the possibility of surgery. Venous Thromboembolism Antithrombotics Is Pt On Any Antithrombotics?: No DREW HERNANDEZ Dec 15, 2018 15:58
--- NOTE | 2018-12-15 16:20 | RADIOLOGY IMAGING REPORT ---
FACILITY: [facility] - [place] PATIENT NAME: Sherron So : 1955 MR: [id number] V: [id number] EXAM DATE: ORDERING PHYSICIAN: FOREIGN PRIEST TECHNOLOGIST: [place] [facility] [place] Patient: Sherron So : 1955 Visit/Account:[id number] Date of Sevice: 12/15/2018 CHEST SINGLE AP Indication: NG tube placement.. Comparison: None available Findings: NG tube is in place with the tip below the left hemidiaphragm and appears to be in the stomach. Lungs show no consolidation, pleural effusion or pneumothorax. No discrete nodule. Cardiomediastinal silhouette and pulmonary vessels within normal limits. Upper abdomen shows couple prominent bowel loops similar to the KUB done earlier. No acute bony abnor mality. IMPRESSION: 1. NG tube is in place with the tip below the left hemidiaphragm and appears to be in the stomach. Report Dictated By: Jaden Méndez at 12/15/2018 4:12 PM Report E-Signed By: Jaden Méndez at 12/15/2018 4:15 PM WSN:[id number]
[2018-12-15] MEDS: ACETAMINOPHEN(*)1000 MG/100 ML 100 ML IVPB PRN (20:54)
[2018-12-16] MEDS: ACETAMINOPHEN(*)1000 MG/100 ML 100 ML IVPB PRN ×2 (02:45→19:18)
[2018-12-16 03:00] VITALS: BP 115/8
[2018-12-16] MEDS: PIPERACILLIN/TAZO*3.375GM VIAL 3.375 GM in NS(*) 0.9% 100 ML MINI-BAG 100 ML IVPB SCH ×4 (04:26→22:23)
[2018-12-16 05:48] LABS: PLATELET COUNT, AUTOMATED 247 K/uL (150-450)
[2018-12-16] MEDS ORDERED: LEVOTHYROXINE SOD 0.05 MG TAB PO SCH (06:00)
[2018-12-16 07:33] VITALS: BP 131/74
[2018-12-16] MEDS: MOMETASONE/FORMOT 200MCG/5 MCG IH SCH ×2 (08:18→17:34)
[2018-12-16] MEDS: PANTOPRAZOLE SOD 40 MG IV VIAL IVP SCH (08:49)
[2018-12-16] MEDS: KCL (*) 20 MEQ/100 ML PREMIX 100 ML IV SCH ×2 (08:50→13:49)
[2018-12-16] MEDS: NS(*) 0.9% 1000 ML BAG 1,000 ML IV PRN (08:50)
--- NOTE | 2018-12-16 09:04 | General Surgery Progress Note ---
Subjective Progress Notes Subjective + small amount of flatus Physical Exam Vital Signs Date Time Temp Pulse Resp B/P (MAP) Pulse Ox O2 Delivery O2 Flow Rate FiO2 12/16/18 07:35 87 12/16/18 07:33 98.2 93 18 131/74 (93) Nasal Cannula 1.5 Intake and Output 12/16/18 07:02 Intake Total 1200 ml Output Total 2225 ml Balance -1025 ml Intake Oral 0 ml IV Total 1200 ml Output Urine/Stool Mix 100 ml Gastric Drainage Total 1900 ml Emesis 225 ml # Voids 2 # Bowel Movements 1 # Emeses 1 General Appearance: Alert, Awake, No Acute Distress, Afebrile Neuro: No Gross deficits Cardiovascular: Normal Rhythm & Peripheral Pulses, Regular Rate and Rhythm, No Edema Respiratory: No Respiratory Distress, Clear to Auscultation GI: Soft and Non-Tender, Other (less distended, + BS, no peritoneal signs) Extremities: Soft and Non Tender, Warm, Pulses, Perfused Integumentary: Skin Intact without Lesion / Mass Psych: Alert & Oriented X3, Appropriate Mood & Affect Result Diagram: 12/16/1851712/16/18517 Assessment and Plan Problems: (1) Diverticulitis Status: Acute Assessment & Plan: no obstruction on ct yesterday. pt now has ileus or sbo secondary to diverticulitis. plan: iv abx, ivf, ngt, npo, serial exams/labs/xrays. sbo will likely resolve with treatment of diverticulitis; however, we did discuss the possibility of surgery. 12/16/2018 Cont bowel rest and IV antibiotics for acute sigmoid diverticulitis. (2) SBO (small bowel obstruction) Status: Acute Assessment & Plan: 12/16/18 Pt required NGT decompression with high outputs over past 24 hours. Cont to LIS. KUB noted. Etiology indeterminate, reactive ileus vs mechanical sbo. Will consider SBFT if no improvement next 24 hours. Time Spent: > 30 min Exam Sepsis Risk: Sepsis Risk LUISA DE LA ROSA MD Dec 16, 2018 09:04
--- NOTE | 2018-12-16 10:01 | RADIOLOGY IMAGING REPORT ---
FACILITY: [facility] PATIENT NAME: Sherron So : 1955 MR: [id number] V: [id number] EXAM DATE: ORDERING PHYSICIAN: MARYELLEN NOBLES TECHNOLOGIST: Location: [facility] - [place] Patient: Sherron So : 1955 Visit/Account:[id number] Date of Sevice: 12/16/2018 KUB SINGLE VIEW ABDOMEN HISTORY: SBO COMPARISON: X-ray examination abdomen December 15 FINDINGS: Compared to previous examination, stable appearance of dilated loops of small bowel within the mid ab domen and throughout the left hemiabdomen. No evidence of pneumatosis or free air. NG tube is seen over the stomach. Lung bases are clear. IMPRESSION:Compared to prior examination from yesterday, no change. Findings indicative of small bow el obstruction. No evidence of pneumatosis or free air. Report Dictated By: Martin Sol MD at 12/16/2018 9:35 AM Report E-Signed By: Martin Sol MD at 12/16/2018 9:54 AM WSN:[id number]
--- NOTE | 2018-12-16 10:34 | Hospitalist Progress Note ---
Subjective Progress Notes Subjective She was admitted with diverticulitis and SBO. She reports much improvement in abdomen. But reports she is not passing gas yet. Patient Complains of: Cardiovascular: No: Chest Pain Respiratory: No: Shortness of Breath Physical Exam Vital Signs Date Time Temp Pulse Resp B/P (MAP) Pulse Ox O2 Delivery O2 Flow Rate FiO2 12/16/18 09:07 92 Nasal Cannula 1.5 12/16/18 07:33 98.2 93 18 131/74 (93) Intake and Output 12/16/18 01:02 Intake Total 1300 ml Output Total 1525 ml Balance -225 ml Intake Oral 0 ml IV Total 1300 ml Output Urine/Stool Mix 100 ml Gastric Drainage Total 1200 ml Emesis 225 ml # Voids 2 # Bowel Movements 1 # Emeses 1 General Appearance: Alert, Awake, No Acute Distress, Afebrile Neuro: No Gross deficits Cardiovascular: Regular Rate and Rhythm Respiratory: No Respiratory Distress, Clear to Auscultation GI: Other (NG tube present, minimal bowel sounds present) Extremities: Warm, Perfused; No Edema Psych: Alert & Oriented X3, Appropriate Mood & Affect Result Diagram: 12/16/1851712/16/18517 Assessment and Plan Problems: (1) Diverticulitis Status: Acute Assessment & Plan: She will receive IV hydration and continue on Zosyn. Antiemetics prn. SCDs ordered. Stool studies ordered in ER but no BM or flatus since admission, see below. (2) Ileus Assessment & Plan: Ileus vs SBO, dilated loops SB on KUB. NG tube placed to LIWS, NPO. KUB today shows no improvement. (3) HTN (hypertension) Status: Chronic Assessment & Plan: She is on chronic treatment with Amlodipine. This will be held now, secondary to SBO. Will continue to monitor BP's. (4) Asthma Status: Chronic Assessment & Plan: Albuterol and Dulera inhalers ordered. (5) Hypothyroidism Status: Chronic Assessment & Plan: Levothyroxine ordered IV. Exam Sepsis Risk: No Definite Risk Problem Qualifiers (1) HTN (hypertension): Hypertension type: essential hypertension Qualified Codes: I10 - Essential (primary) hypertension MARYELLEN NOBLES SUPPLY CHAIN DESIGN MANAGER Dec 16, 2018 10:34
[2018-12-16 11:07] VITALS: BP 140/85
[2018-12-16] MEDS ORDERED: HYDR-2966 PO (12:16)
[2018-12-16] MEDS ORDERED: DICL100G7 TOP (12:16)
--- NOTE | 2018-12-16 14:58 | Medical Nutrition Therapy ---
Nutrition Anthropometrics Weight (Pounds): 210 Weight (Calculated Kilograms): 95.254 Puneet Nutrition Score: Adequate Puneet Nutrition Risk Score: 20 Dietary Referral Nutrition Risk Factors: Nutrition Risk Comment: Nutritional Diagnosis Nutritional Risk Acuity 1: GI Obstruction Nutritional Acuity: 1-High Nutrition Diagnosis: Altered GI Function Nutrition Etiology: Psychological Issues Nutrition Problem/Etiology/Sym: AEB dx ileus or sbo secondary to diverticulitis. Energy Requirement: 2140 (1900- 2375, 20-25 kcal/kg) Protein Requirement: 76 (.8gm-kcal) Nutrition Intervention: Incr diet as tolerated, Obtain Height and Weight Nutrition Monitoring & Eval Nutrition Goals: Eat 75-100% Meal, Drink > 2 liters/day RD Patient Assessment Time: [address] Assessment Type: RD Assessment Patient Nutrition Acuity: 1-High Follow Up Date: Dec 19, 2018 Nutritional Comment: 12/16 Pt admitted with ileus or SBO secondary to diverticulitis. Pt currently NPO. Alb 2.9 pt has nonpitting edema BLE. No ht obtained. Will cont to monitor. ABHINAV SPENCE Dec 16, 2018 14:58
[2018-12-16 15:30] VITALS: BP 142/86
[2018-12-16] MEDS: BISACODYL 10 MG SUPP PR PRN (15:32)
[2018-12-16 19:06] VITALS: BP 134/68
[2018-12-16] MEDS: MORPHINE 2 MG/ML SYR IVP PRN (20:10)
[2018-12-16 23:30] VITALS: BP 133/72
[2018-12-17] MEDS: NS(*) 0.9% 1000 ML BAG 1,000 ML IV PRN ×2 (00:31→16:32)
[2018-12-17 02:28] VITALS: BP 153/61
[2018-12-17] MEDS: MORPHINE 2 MG/ML SYR IVP PRN ×2 (03:13→22:23)
[2018-12-17] MEDS: PIPERACILLIN/TAZO*3.375GM VIAL 3.375 GM in NS(*) 0.9% 100 ML MINI-BAG 100 ML IVPB SCH ×4 (04:29→22:24)
[2018-12-17] MEDS: MOMETASONE/FORMOT 200MCG/5 MCG IH SCH ×2 (05:57→18:04)
[2018-12-17 06:57] VITALS: BP 132/82
--- NOTE | 2018-12-17 08:27 | General Surgery Progress Note ---
Subjective Progress Notes Subjective no further flatus, small firm stool after dulcolax supp yesterday. Physical Exam Vital Signs Date Time Temp Pulse Resp B/P (MAP) Pulse Ox O2 Delivery O2 Flow Rate FiO2 12/17/18 08:22 84 12/17/18 06:57 99.5 90 20 132/82 (99) Nasal Cannula 1.5 Intake and Output 12/17/18 07:02 Intake Total 2583 ml Output Total 1000 ml Balance 1583 ml IV Total 2583 ml Gastric Drainage Total 1000 ml # Voids 5 General Appearance: Alert, Awake, No Acute Distress, Afebrile Neuro: No Gross deficits Cardiovascular: Normal Rhythm & Peripheral Pulses Respiratory: No Respiratory Distress, Clear to Auscultation GI: Soft and Non-Tender, Other (mild left sided tenderness with quiet BS, no peritoneal signs) Musculoskeletal: No Weakness/Pain Integumentary: Skin Intact without Lesion / Mass Psych: Alert & Oriented X3, Appropriate Mood & Affect Result Diagram: 12/16/1851712/16/18517 Monitor Interpretation: Normal Sinus Rhythm Assessment and Plan Problems: (1) Diverticulitis Status: Acute Assessment & Plan: no obstruction on ct yesterday. pt now has ileus or sbo secondary to diverticulitis. plan: iv abx, ivf, ngt, npo, serial exams/labs/xrays. sbo will likely resolve with treatment of diverticulitis; however, we did discuss the possibility of surgery. 12/16/2018 Cont bowel rest and IV antibiotics for acute sigmoid diverticulitis. 12/17/2018 slow improvement, cont care plan as above. Repeat labs in am. (2) SBO (small bowel obstruction) Status: Acute Assessment & Plan: 12/16/18 Pt required NGT decompression with high outputs over past 24 hours. Cont to LIS. KUB noted. Etiology indeterminate, reactive ileus vs mechanical sbo. Will consider SBFT if no improvement next 24 hours. 12/17/2018: NGT output less past 24 hours. Cont NGT until improved bowel function. Gentle [place] cathartics given her sigmoid inflammation per pt request. Time Spent: > 30 min Exam Sepsis Risk: No Definite Risk LUISA DE LA ROSA MD Dec 17, 2018 08:27
[2018-12-17] MEDS: BISACODYL 10 MG SUPP PR PRN (08:40)
[2018-12-17] MEDS: ACETAMINOPHEN(*)1000 MG/100 ML 100 ML IVPB PRN ×3 (08:40→21:51)
[2018-12-17] MEDS: PANTOPRAZOLE SOD 40 MG IV VIAL IVP SCH (10:10)
[2018-12-17] MEDS: LEVOTHYROXINE SOD 100 MCG VIAL IVP SCH (10:11)
--- NOTE | 2018-12-17 10:40 | Antimicrobial Stewardship ---
Antimicrobial Stewardship Empiricly appropriate: Yes (Diverticulitis) Support empiric regimen: Yes (Zosyn) Renal/Hepatic dosing: Yes (Renal and Hepatic function is appropriate for full dose) Determine cumulative duration: Today is day 4 Determine standard duration: 10-14 days depending on symptoms and if surgery required Comment 63 yo F with SBO and diverticulitis Tmax 100.4, currently 99 WBC >20 CRP 23.2 NG tube still in place, absent bowel sounds NPO, will check K and Scr, if remains NPO consider PPN Continue Zosyn Sahra Cleaning, PharmD, [facility] [employer] Dec 17, 2018 10:40
--- NOTE | 2018-12-17 11:00 | Hospitalist Progress Note ---
Subjective Progress Notes Subjective Minimal flatus. Tiny amount of BM with suppository. Feeling bloated/need to have BM. Physical Exam Vital Signs Date Time Temp Pulse Resp B/P (MAP) Pulse Ox O2 Delivery O2 Flow Rate FiO2 12/17/18 08:22 84 12/17/18 06:57 99.5 90 20 132/82 (99) Nasal Cannula 1.5 Intake and Output 12/17/18 07:02 Intake Total 2583 ml Output Total 1000 ml Balance 1583 ml IV Total 2583 ml Gastric Drainage Total 1000 ml # Voids 5 General Appearance: Alert, Awake Cardiovascular: Regular Rate and Rhythm Respiratory: Clear to Auscultation GI: Other (soft/BS rare) Result Diagram: 12/16/1851712/16/18517 Monitor Interpretation: Normal Sinus Rhythm Assessment and Plan Problems: (1) Diverticulitis Status: Acute Assessment & Plan: Minimal improvements. Re-check labs. She will continue on IV fluids and Zosyn. Antiemetics PRN. Surgery following as well. (2) Ileus Assessment & Plan: Suspect most likely ileus (vs. SBO). She has dilated loops of small bowel on KUB. NG tube placed, NPO. KUB yesterday did not show much improvement. Dr. Pickens (surgery) is following as well. Patient did not have much in the way of BM with suppository. Will continue with NG and IV fluids. Start PPN if not resolving by tomorrow. (3) HTN (hypertension) Status: Chronic Assessment & Plan: She is on chronic treatment with Amlodipine. Currently being held secondary to SBO. BPs have been in normal range. Will continue to monitor. (4) Asthma Status: Chronic Assessment & Plan: Continue Albuterol and Dulera. (5) Hypothyroidism Status: Chronic Assessment & Plan: She is currently Levothyroxine 25mcg IV daily. Her usual oral dose is 50mcg daily. Exam Sepsis Risk: No Definite Risk Problem Qualifiers (1) HTN (hypertension): Hypertension type: essential hypertension Qualified Codes: I10 - Essential (p rimary) hypertension ELLIE OLSON MD Dec 17, 2018 11:00
[2018-12-17 11:20] LABS: PLATELET COUNT, AUTOMATED 366 K/uL (150-450)
[2018-12-17 14:22] VITALS: BP 143/78
[2018-12-17 19:34] VITALS: BP 154/81
[2018-12-17 23:00] VITALS: BP 147/79
[2018-12-18] VITALS (7 sets, daily range): BP systolic 138–161; BP diastolic 81–101
[2018-12-18] MEDS: NS(*) 0.9% 1000 ML BAG 1,000 ML IV PRN (02:59)
[2018-12-18] MEDS: MORPHINE 2 MG/ML SYR IVP PRN (03:00)
[2018-12-18] MEDS: PIPERACILLIN/TAZO*3.375GM VIAL 3.375 GM in NS(*) 0.9% 100 ML MINI-BAG 100 ML IVPB SCH ×4 (04:49→22:27)
[2018-12-18] MEDS: MOMETASONE/FORMOT 200MCG/5 MCG IH SCH ×2 (05:14→17:29)
[2018-12-18 06:28] LABS: PLATELET COUNT, AUTOMATED 315 K/uL (150-450)
--- NOTE | 2018-12-18 07:08 | General Surgery Progress Note ---
Subjective Progress Notes Subjective Feeling better this morning. Less abdominal pain and bloating. Not much flatus yet. Physical Exam Vital Signs Date Time Temp Pulse Resp B/P (MAP) Pulse Ox O2 Delivery O2 Flow Rate FiO2 12/18/18 03:00 86 12/18/18 03:00 98.4 86 6 156/81 (106) Nasal Cannula 1.0 Intake and Output 12/18/18 07:02 Intake Total 1711 ml Output Total 1800 ml Balance -89 ml Intake Oral 300 ml IV Total 1411 ml Gastric Drainage Total 1800 ml # Voids 8 # Bowel Movements 4 # Emeses 1 General Appearance: Alert, Awake, No Acute Distress, Afebrile GI: Other (Abdomen soft, mild left sided TTP, no peritoneal signs, mildly distended.) Extremities: Warm, Perfused Result Diagram: 12/18/1861712/18/18617 Monitor Interpretation: Normal Sinus Rhythm Assessment and Plan Problems: (1) Diverticulitis Status: Acute Assessment & Plan: no obstruction on ct yesterday. pt now has ileus or sbo secondary to diverticulitis. plan: iv abx, ivf, ngt, npo, serial exams/labs/xrays. sbo will likely resolve with treatment of diverticulitis; however, we did discuss the possibility of surgery. 12/16/2018 Cont bowel rest and IV antibiotics for acute sigmoid diverticulitis. 12/17/2018 slow improvement, cont care plan as above. Repeat labs in am. 12/18/18: Decreasing abdominal pain, benign abdominal exam, WBC down this morning, no fevers. Continue current abx regimen for uncomplicated diverticulitis. (2) SBO (small bowel obstruction) Status: Acute Assessment & Plan: 12/16/18 Pt required NGT decompression with high outputs over past 24 hours. Cont to LIS. KUB noted. Etiology indeterminate, reactive ileus vs mechanical sbo. Will consider SBFT if no improvement next 24 hours. 12/17/2018: NGT output less past 24 hours. Cont NGT until improved bowel function. Gentle [place] cathartics given her sigmoid inflammation per pt request. 12/18/18: Continuing decreasing NG tube output. Continue NG tube decompression and bowel rest and will await for signs of improved bowel function (flatus, less bloating, etc). Condition Stable Time Spent: < 30 min Exam Sepsis Risk: Sepsis Risk VERNELL HERNANDEZ MD 3, 2019 07:08
[2018-12-18] MEDS: PANTOPRAZOLE SOD 40 MG IV VIAL IVP SCH (08:34)
[2018-12-18] MEDS: LEVOTHYROXINE SOD 100 MCG VIAL IVP SCH (08:34)
[2018-12-18] MEDS: KCL/D1/2NS 20 MEQ 1000 ML 1,000 ML IV SCH ×2 (08:35→20:00)
[2018-12-18] MEDS: KCL (*) 20 MEQ/100 ML PREMIX 100 ML IV SCH ×2 (08:35→09:05)
--- NOTE | 2018-12-18 11:47 | Hospitalist Progress Note ---
Subjective Progress Notes Subjective Overall feeling less bloated and uncomfortable. Having trouble passing any flatus. Physical Exam Vital Signs Date Time Temp Pulse Resp B/P (MAP) Pulse Ox O2 Delivery O2 Flow Rate FiO2 12/18/18 07:07 97.6 98 16 153/84 (107) 92 Nasal Cannula 1.0 Intake and Output 12/18/18 07:02 Intake Total 1711 ml Output Total 1800 ml Balance -89 ml Intake Oral 300 ml IV Total 1411 ml Gastric Drainage Total 1800 ml # Voids 8 # Bowel Movements 4 # Emeses 1 General Appearance: Alert, Awake, No Acute Distress GI: Other (Soft, hypoactive BS, mild discomfort with palption of the leftsided of abd) Extremities: Edema (trace pitting in shins (she reports it as baseline)) Result Diagram: 12/18/1861712/18/18617 Monitor Interpretation: Normal Sinus Rhythm Assessment and Plan Problems: (1) Diverticulitis Status: Acute Assessment & Plan: Afebrile. WBC/CRP decreasing. Less abdominal pain. Re- check labs. She will continue on IV fluids and Zosyn. Antiemetics PRN. Surgery following as well. (2) Ileus Assessment & Plan: Suspect most likely ileus (vs. SBO). She has dilated loops of small bowel on KUB. NG tube placed, NPO. KUB did not show much improvement. Dr. Moreno (surgery) is following as well. Will continue with NG and IV fluids. KUB tomorrow. (3) HTN (hypertension) Status: Chronic Assessment & Plan: She is on chronic treatment with Amlodipine. Currently being held secondary to SBO. BPs have been in normal range. Will continue to monitor. (4) Asthma Status: Chronic Assessment & Plan: Continue Albuterol and Dulera. (5) Hypothyroidism Status: Chronic Assessment & Plan: She is currently Levothyroxine 25mcg IV daily. Her usual oral dose is 50mcg daily. Exam Sepsis Risk: Sepsis Risk Problem Qualifiers (1) HTN (hypertension): Hypertension type: essential hypertension Qualified Codes: I10 - Essential (primary) hypertension RAJI CORTEZ MD Dec 18, 2018 11:47
[2018-12-18] MEDS: BISACODYL 10 MG SUPP PR PRN (13:54)
[2018-12-18] MEDS: ACETAMINOPHEN(*)1000 MG/100 ML 100 ML IVPB PRN (21:46)
[2018-12-19] MEDS: PIPERACILLIN/TAZO*3.375GM VIAL 3.375 GM in NS(*) 0.9% 100 ML MINI-BAG 100 ML IVPB SCH ×4 (04:15→22:33)
[2018-12-19 04:25] VITALS: BP 169/85
[2018-12-19] MEDS: ACETAMINOPHEN(*)1000 MG/100 ML 100 ML IVPB PRN (05:10)
[2018-12-19] MEDS: MOMETASONE/FORMOT 200MCG/5 MCG IH SCH ×2 (05:35→17:23)
--- NOTE | 2018-12-19 06:39 | RADIOLOGY IMAGING REPORT ---
FACILITY: [facility] - [place] PATIENT NAME: Sherron So : 1955 MR: [id number] V: [id number] EXAM DATE: ORDERING PHYSICIAN: VERNELL HERNANDEZ TECHNOLOGIST: Location: [facility] Patient: Sherron So : 1955 Visit/Account:[id number] Date of Sevice: 12/19/2018 Exam type: KUB SINGLE VIEW ABDOMEN History: SBO vs ileus, sigmoid diverticulitis Comparison: 12/16/2018. Findings: NG tube projects over the left upper quadrant in the stomach. There remain dilated small bowel loops with air seen in the ascending colon and rectum. Pattern could represent an ileus versus obstruction. No pneumatosis or free air. IMPRESSION: 1. Persistently dilated small bowel loops but air is noted in the colon and rectum. Overall no interv al change. Differential diagnosis is a small bowel obstruction versus an ileus. Report Dictated By: Jaden Cai MD at 12/19/2018 6:28 AM Report E-Signed By: Jaden Cai MD at 12/19/2018 6:32 AM [id number]
[2018-12-19 07:08] LABS: PLATELET COUNT, AUTOMATED 326 K/uL (150-450)
[2018-12-19 07:24] VITALS: BP 149/88
[2018-12-19] MEDS: PANTOPRAZOLE SOD 40 MG IV VIAL IVP SCH (08:21)
[2018-12-19] MEDS: KCL/D1/2NS 20 MEQ 1000 ML 1,000 ML IV SCH ×3 (08:22→22:41)
[2018-12-19] MEDS: LEVOTHYROXINE SOD 100 MCG VIAL IVP SCH (08:33)
--- NOTE | 2018-12-19 09:29 | General Surgery Progress Note ---
Subjective Progress Notes Subjective Feeling better. Abdominal pain is improving. Had some gas pains overnight but no flatus. Passing "small pellets" of stool. Physical Exam Vital Signs Date Time Temp Pulse Resp B/P (MAP) Pulse Ox O2 Delivery O2 Flow Rate FiO2 12/19/18 07:24 97.7 93 20 149/88 (108) 92 Room Air 12/18/18 23:30 1.0 Intake and Output 12/19/18 07:02 Intake Total 1600 ml Output Total 1500 ml Balance 100 ml Intake Oral 400 ml IV Total 1200 ml Gastric Drainage Total 1500 ml # Voids 5 # Bowel Movements 5 General Appearance: Alert, Awake, No Acute Distress, Afebrile GI: Other (Soft, mild left sided abdominal pain, no peritoneal signs) Extremities: Warm, Perfused Result Diagram: 12/19/18 0700 12/19/18 0619 Monitor Interpretation: Normal Sinus Rhythm Assessment and Plan Problems: (1) Diverticulitis Status: Acute Assessment & Plan: no obstruction on ct yesterday. pt now has ileus or sbo secondary to diverticulitis. plan: iv abx, ivf, ngt, npo, serial exams/labs/xrays. sbo will likely resolve with treatment of diverticulitis; however, we did discuss the possibility of surgery. 12/16/2018 Cont bowel rest and IV antibiotics for acute sigmoid diverticulitis. 12/17/2018 slow improvement, cont care plan as above. Repeat labs in am. 12/18/18: Decreasing abdominal pain, benign abdominal exam, WBC down this morning, no fevers. Continue current abx regimen for uncomplicated diverticulitis. 12/19/18: Improving. WBC same as yesterday at 16K but down from 2 days ago, will continue follow. Afebrile and VSS. Continue current abx regimen. (2) SBO (small bowel obstruction) Status: Acute Assessment & Plan: 12/16/18 Pt required NGT decompression with high outputs over past 24 hours. Cont to LIS. KUB noted. Etiology indeterminate, reactive ileus vs mechanical sbo. Will consider SBFT if no improvement next 24 hours. 12/17/2018: NGT output less past 24 hours. Cont NGT until improved bowel function. Gentle [place] cathartics given her sigmoid inflammation per pt request. 12/18/18: Continuing decreasing NG tube output. Continue NG tube decompression and bowel rest and will await for signs of improved bowel function (flatus, less bloating, etc). 12/19/18: No flatus yet and KUB still with dilated small bowel without improvement when compared to 3 days ago. Will get SBFT today. Continue NG tube decompression, bowel rest, IV fluids, etc. If no improvement by tomorrow, will have PICC line placed and start TPN. Condition Stable. Time Spent: < 30 min Exam Sepsis Risk: No Definite Risk VERNELL HERNANDEZ MD Dec 19, 2018 09:29
--- NOTE | 2018-12-19 09:32 | Medical Nutrition Therapy ---
Nutrition Anthropometrics Weight (Pounds): 210 Weight (Calculated Kilograms): 95.254 Puneet Nutrition Score: Very Poor Puneet Nutrition Risk Score: 18 Dietary Referral Nutrition Risk Factors: Nutrition Risk Comment: Nutritional Diagnosis Nutritional Risk Acuity 1: NPO/CL > 3 days, GI Obstruction Nutritional Acuity: 1-High Nutrition Diagnosis: Altered GI Function Nutrition Etiology: Psychological Issues Nutrition Problem/Etiology/Sym: AEB dx ileus or sbo secondary to diverticulitis. Energy Requirement: 2140 (1900- 2375, 20-25 kcal/kg) Protein Requirement: 76 (.8gm-kcal) Diet Type: NPO (Nothing by Mouth) Nutrition Intervention: Nutrition support, Incr diet as tolerated, Obtain Height and Weight Additional Diet Restrictions: PROVIDE CLEAR LIQUID NUTR SUPPLEMENT WHEN ON CLEAR LIQUID DIET Nutritional Support Recommended Enteral / Parental: TPN Recommended Rate: Final rate 75ml/hr dextrose 20%, AA 5% + lipids Recommended Duration: 24 Recommended Calories: 1584 Recommended Protein: 90 Recommended Lipids Calories: 500 Total Recommended Calories: 2084 Nutrition Monitoring & Eval Nutritional Goals Comment: Nutrtional needs brea be met thur nutritional support if oral intake can not meet needs RD Patient Assessment Time: [address] Assessment Type: RD Re-Assessment Patient Nutrition Acuity: 1-High Follow Up Date: Dec 22, 2018 Nutritional Comment: 12/16 Pt admitted with ileus or SBO secondary to diverticulitis. Pt currently NPO. Alb 2.9 pt has nonpitting edema BLE. No ht obtained. Will cont to monitor. BK 12/19 Pt 4th day NPO. Recommend nutrtional support if diet not advanced. 75ml/hr TPN plus lipids would meet nutritional needs. K+ 3.4, pt is recieving K+ supplement. Alb declined to 3. Pt has 2+ edema BLE. Nursing reporting flatus present and hypoactive bowel sounds. Will cont to monitor. BK Copies To Copies to: VERNELL HERNANDEZ MD ; ABHINAV HUITRON Dec 19, 2018 09:32
[2018-12-19] MEDS ORDERED: DIATRIZOATE MEGL/DIATRIZOA SOD 120 ML SOLN PO ONE (09:50)
[2018-12-19] MEDS: ONDANSETRON 4 MG/2 ML VIAL IVP PRN (11:50)
[2018-12-19 12:59] VITALS: BP 168/94
--- NOTE | 2018-12-19 13:18 | Hospitalist Progress Note ---
Subjective Progress Notes Subjective Bowel movement after small bowel with follow through this am. Feeling better. Patient Complains of: Gastrointestinal: Flatus, Bowel Movement Physical Exam Vital Signs Date Time Temp Pulse Resp B/P (MAP) Pulse Ox O2 Delivery O2 Flow Rate FiO2 12/19/18 12:59 97.8 90 18 168/94 (118) 89 Room Air 12/18/18 23:30 1.0 Intake and Output 12/19/18 07:02 Intake Total 1600 ml Output Total 1500 ml Balance 100 ml Intake Oral 400 ml IV Total 1200 ml Gastric Drainage Total 1500 ml # Voids 5 # Bowel Movements 5 General Appearance: Alert, Awake, No Acute Distress, Afebrile Neuro: No Gross deficits Cardiovascular: Normal Rhythm & Peripheral Pulses Respiratory: No Respiratory Distress GI: Soft and Non-Tender Extremities: Soft and Non Tender, Warm, Pulses, Perfused Result Diagram: 12/19/18 0700 12/19/18 0619 Monitor Interpretation: Normal Sinus Rhythm Assessment and Plan Problems: (1) Diverticulitis Status: Acute Assessment & Plan: Afebrile. WBC/CRP decreasing. Less abdominal pain. Re- check labs. She will continue on IV fluids and Zosyn. Antiemetics PRN. Surgery following as well. (2) Ileus Assessment & Plan: Suspect most likely ileus (vs. SBO). She has dilated loops of small bowel on KUB. NG tube placed, NPO. KUB did not show much improvement. Dr. Moreno (surgery) is following as well. Will continue with NG and IV fluids. Small bowel with follow through produced bowel movement. (3) HTN (hypertension) Status: Chronic Assessment & Plan: She is on chronic treatment with Amlodipine. Currently being held secondary to SBO. BPs have been in normal range. Will continue to monitor. (4) Asthma Status: Chronic Assessment & Plan: Continue Albuterol and Dulera. (5) Hypothyroidism Status: Chronic Assessment & Plan: She is currently Levothyroxine 25mcg IV daily. Her usual oral dose is 50mcg daily. Exam Sepsis Risk: No Definite Risk Problem Qualifiers (1) HTN (hypertension): Hypertension type: essential hypertension Qualified Codes: I10 - Essential (primary) hypertension RUKHSANA PRIESTFOREIGN Dec 19, 2018 13:18
[2018-12-19 15:35] VITALS: BP 171/97
[2018-12-19 20:11] VITALS: BP 148/90
--- NOTE | 2018-12-19 21:09 | RADIOLOGY IMAGING REPORT ---
[place] [facility] [place]: Sherron So : 1955 MR: [id number] V: [id number] EXAM DATE: ORDERING PHYSICIAN: VERNELL HERNANDEZ TECHNOLOGIST: Location: Patient: Sherron So : 1955 Visit/Account:[id number] Date of Sevice: 12/19/2018 XR SMALL BOWEL SERIES HISTORY: Ileus versus small bowel obstruction. Abdominal pain, nausea, and vomiting. COMPARISON: KUB earlier same day and studies dating to 12/14/2018. TECHNIQUE: 90 mL IV Gastrografin was given via NG tube. Images were obtained at 1 and 4 hours after o ral contrast. FINDINGS: On the 1 hour image, NG tube terminates within the stomach. There is contrast within stomac h, duodenum, and proximal jejunum. There are prominent loops of small bowel, but they are less dilate d than earlier studies. There is gas in colon. On the 4 hour image, contrast has reached the distal colon. There are persistently mildly dilated sma ll bowel loops containing contrast in the left abdomen. IMPRESSION: 1. Contrast reaches the distal colon by the 4 hour image. There are persistently mildly dilated small bowel loops, and findings favor ileus over small bowel obstruction. Report Dictated By: Ave Wilkins at 12/19/2018 8:57 PM Report E-Signed By: Ave Wilkins at 12/19/2018 9:03 PM WSN:[id number]
[2018-12-19 23:07] VITALS: BP 155/84
[2018-12-20 03:28] VITALS: BP 138/90
[2018-12-20] MEDS: PIPERACILLIN/TAZO*3.375GM VIAL 3.375 GM in NS(*) 0.9% 100 ML MINI-BAG 100 ML IVPB SCH ×4 (04:33→22:36)
[2018-12-20] MEDS: MOMETASONE/FORMOT 200MCG/5 MCG IH SCH ×2 (05:42→17:14)
[2018-12-20 05:44] LABS: PLATELET COUNT, AUTOMATED 320 K/uL (150-450)
[2018-12-20 08:08] VITALS: BP 147/79
--- NOTE | 2018-12-20 08:22 | General Surgery Progress Note ---
Subjective Progress Notes Subjective No complaints. Passed "a little" flatus overnight but not regularly. Tolerating little sips of clears. Had one episode of LLQ abdominal pain but now gone. No N/V. Pt overall feels like she's improving. Physical Exam Vital Signs Date Time Temp Pulse Resp B/P (MAP) Pulse Ox O2 Delivery O2 Flow Rate FiO2 12/20/18 08:08 98.1 85 18 147/79 (101) 93 Room Air 12/20/18 03:28 2.0 Intake and Output 12/20/18 07:02 Intake Total 320 ml Output Total 350 ml Balance -30 ml Intake Oral 120 ml IV Total 200 ml Gastric Drainage Total 250 ml Emesis 100 ml # Voids 7 # Bowel Movements 13 General Appearance: Alert, Awake, No Acute Distress, Afebrile GI: Soft and Non-Tender Result Diagram: 12/20/18 0528 12/20/18527 Monitor Interpretation: Normal Sinus Rhythm Assessment and Plan Problems: (1) Diverticulitis Status: Acute Assessment & Plan: no obstruction on ct yesterday. pt now has ileus or sbo secondary to diverticulitis. plan: iv abx, ivf, ngt, npo, serial exams/labs/xrays. sbo will likely resolve with treatment of diverticulitis; however, we did discuss the possibility of surgery. 12/16/2018 Cont bowel rest and IV antibiotics for acute sigmoid diverticulitis. 12/17/2018 slow improvement, cont care plan as above. Repeat labs in am. 12/18/18: Decreasing abdominal pain, benign abdominal exam, WBC down this morning, no fevers. Continue current abx regimen for uncomplicated diverticulitis. 12/19/18: Improving. WBC same as yesterday at 16K but down from 2 days ago, will continue follow. Afebrile and VSS. Continue current abx regimen. 12/20/18: Abdominal exam is benign, still somewhat distended. WBC persistently elevated at 16K. Will repeat abdominal/pelvis CT with IV contrast today. Pt on sips of clears and tolerating it. Advised to continue moderating intake until flatus amount improves. Continue PPI, lovenox for prophylaxis. Continue IV abx until tolerating regular diet. (2) SBO (small bowel obstruction) Status: Acute Assessment & Plan: 12/16/18 Pt required NGT decompression with high outputs over past 24 hours. Cont to LIS. KUB noted. Etiology indeterminate, reactive ileus vs mechanical sbo. Will consider SBFT if no improvement next 24 hours. 12/17/2018: NGT output less past 24 hours. Cont NGT until improved bowel function. Gentle [place] cathartics given her sigmoid inflammation per pt request. 12/18/18: Continuing decreasing NG tube output. Continue NG tube decompression and bowel rest and will await for signs of improved bowel function (flatus, less bloating, etc). 12/19/18: No flatus yet and KUB still with dilated small bowel without improvement when compared to 3 days ago. Will get SBFT today. Continue NG tube decompression, bowel rest, IV fluids, etc. If no improvement by tomorrow, will have PICC line placed and start TPN. 12/20/18: SBFT with gastrograffin to colon rapidly, no obstruction. Patient continues to pass contrast. SB dilation c/w ileus; not obstruction. Continue slow PO intake. Condition STable. Time Spent: < 30 min Exam Sepsis Risk: No Definite Risk VERNELL HERNANDEZ MD Dec 20, 2018 08:22
[2018-12-20] MEDS: PANTOPRAZOLE SOD 40 MG IV VIAL IVP SCH (09:25)
[2018-12-20] MEDS: LEVOTHYROXINE SOD 100 MCG VIAL IVP SCH (09:25)
[2018-12-20] MEDS ORDERED: KCL (*) 20 MEQ/100 ML PREMIX 100 ML IV ONE ×2 (09:40→12:15)
--- NOTE | 2018-12-20 10:19 | Hospitalist Progress Note ---
Subjective Progress Notes Subjective She reports feeling significantly improved. Physical Exam Vital Signs Date Time Temp Pulse Resp B/P (MAP) Pulse Ox O2 Delivery O2 Flow Rate FiO2 12/20/18 08:19 95 12/20/18 08:19 Room Air 12/20/18 08:08 98.1 85 18 147/79 (101) 12/20/18 03:28 2.0 Intake and Output 12/20/18 07:02 Intake Total 320 ml Output Total 350 ml Balance -30 ml Intake Oral 120 ml IV Total 200 ml Gastric Drainage Total 250 ml Emesis 100 ml # Voids 7 # Bowel Movements 13 General Appearance: Alert, Awake Cardiovascular: Regular Rate and Rhythm Respiratory: Clear to Auscultation Extremities: Warm, Perfused Result Diagram: 12/20/1852712/20/18527 Monitor Interpretation: Normal Sinus Rhythm Assessment and Plan Problems: (1) Diverticulitis Status: Acute Assessment & Plan: Afebrile. WBC/CRP slowly decreasing. Less abdominal pain. She is now on clear liquid diet. She will continue on IV fluids and Zosyn. Antiemetics PRN. Surgery following as well. (2) Ileus Assessment & Plan: Suspect most likely ileus (vs. SBO). She had dilated loops of small bowel on KUB. NG tube placed (now out). She is now on clear liquids. Dr. Moreno (surgery) is following as well. Small bowel with follow through (consistent with ileus) produced bowel movement. (3) HTN (hypertension) Status: Chronic Assessment & Plan: She is on chronic treatment with Amlodipine. Currently being held secondary to SBO. BPs have been in normal range. Will continue to monitor. (4) Asthma Status: Chronic Assessment & Plan: Continue Albuterol and Dulera. (5) Hypothyroidism Status: Chronic Assessment & Plan: She is currently Levothyroxine 25mcg IV daily. Her usual oral dose is 50mcg daily. If she tolerates clear liquids will restart her oral. Exam Sepsis Risk: No Definite Risk Problem Qualifiers (1) HTN (hypertension): Hypertension type: essential hypertension Qualified Codes: I10 - Essential (primary) hypertension ELLIE OLSON MD Dec 20, 2018 10:19
[2018-12-20 10:44] VITALS: BP 148/82
--- NOTE | 2018-12-20 11:38 | RADIOLOGY IMAGING REPORT ---
FACILITY: [facility] PATIENT NAME: Sherron So : 1955 MR: [id number] V: [id number] EXAM DATE: ORDERING PHYSICIAN: VERNELL HERNANDEZ TECHNOLOGIST: Location: [facility] Patient: Sherron So : 1955 Visit/Account:[id number] Date of Sevice: 12/20/2018 ADDENDUM #1 ADDENDUM: Interventional radiology was consulted concerning the potential for percutaneous drainage of the pelv ic abscess although was determined this would be very difficult. Report Dictated By: Alexandra Guerin MD at 12/20/2018 2:42 PM Report E-Signed By: Alexandra Guerin MD at 12/20/2018 2:[address] ABDOMEN PELVIS W & W/O CONTRAST HISTORY: Diverticulitis, ileus, persistent leukocytosis TECHNIQUE: Axial images acquired through the abdomen/pelvis both with and without IV contrast.. Camille nal and sagittal reformatting also performed.Dose Lowering Technique One of the following dose optimization techniques was utilized in the performance of this exam: Autom ated exposure control; adjustment of the mA and/or kV according to the patient's size; or use of an i terative reconstruction technique. Specific details can be referenced in the facility's radiology C T exam operational policy. CONTRAST: 75 mL Isovue-370 COMPARISON: December 14, 2018 FINDINGS: Visualized lung bases: There has been development of a small left pleural effusion and mild left bas ilar atelectasis Previously noted 4 mm nodule in the left lower lobe is no longer seen. The previously noted 7 mm nodule in the right lower lobe was not included on the examination. Previously noted 4 mm nodule in the right lower lobe appears slightly smaller Hepatobiliary: The gallbladder is contracted Spleen: Negative. Adrenals: Negative. Pancreas: Negative. Kidneys ureters and bladder: Negative. Genitalia: Hysterectomy 2 cm left ovarian cyst GI: Contrast is present within the rectum in the colon. Reidentified is acute diverticulitis involv ing the sigmoid colon. There has been development of a 5.9 x 3.3 x 3.7 cm abscess just anterior to t he distal sigmoid colon. The colon does not appear dilated. There are numerous dilated fluid-filled loops of small bowel in the upper and left-sided abdomen. Th e ileum appears to be decompressed. There is a loculated fluid collection in the mesentery measuring approximately 11.4 x 5.5 x 6.1 cm. There is no internal air and no surrounding inflammatory change within the adjacent fat Vessels/spaces/nodes: Please see above discussion Bones/soft tissues: There spondylotic changes lower lumbar spine Additional findings: None pertinent. IMPRESSION: Findings are consistent with acute diverticulitis. There is now a 5.9 x 3.3 x 3.7 cm abscess just an terior to the distal sigmoid colon. Also noted is a loculated fluid collection within the mesentery measuring 11.4 x 5.5 x 6.1 cm. There is no internal air within this collection and no surrounding inflammatory change There are numerous dilated fluid-filled loops of small bowel in the upper and left-sided abdomen. Th e ileum appears to be decompressed. The colon is not dilated there for these findings are concerning for small bowel obstruction . Additional chronic findings as described Report Dictated By: Alexandra Guerin MD at 12/20/2018 10:55 AM Report E-Signed By: Alexandra Guerin MD at 12/20/2018 11:31 AM WSN:[id number]
--- NOTE | 2018-12-20 12:38 | General Surgery Progress Note ---
Subjective Progress Notes Subjective Pt with diverticulitis with some improvement but persistent leucocytosis. cloth desizing range tender in LLQ. Somewhat tympanitic. Labs reviewed----getting K for hypokalemia CT--reviewed with radiologist. Development of two abscesses. Radiologist and I called [place] and they reviewed images----unable to access colle ctions. Also persistent SBO with transition in distal ileum (colon decompressed). New pleural effusion. Long discussion with pt, , staff, and Dr. Moreno. Pt made NPO, K riders, check labs, hydrate, PICC. Needs Gumaro with drainage, and NILES (possible SBR) for SBO. Physical Exam Vital Signs Date Time Temp Pulse Resp B/P (MAP) Pulse Ox O2 Delivery O2 Flow Rate FiO2 12/20/18 10:44 99.1 94 18 148/82 (104) 90 Room Air 12/20/18 03:28 2.0 Intake and Output 12/20/18 07:02 Intake Total 320 ml Output Total 350 ml Balance -30 ml Intake Oral 120 ml IV Total 200 ml Gastric Drainage Total 250 ml Emesis 100 ml # Voids 7 # Bowel Movements 13 Result Diagram: 12/20/1828 12/20/18 05 Monitor Interpretation: Normal Sinus Rhythm Assessment and Plan Problems: (1) Diverticulitis Status: Acute Assessment & Plan: no obstruction on ct yesterday. pt now has ileus or sbo secondary to diverticulitis. plan: iv abx, ivf, ngt, npo, serial exams/labs/xrays. sbo will likely resolve with treatment of diverticulitis; however, we did discuss the possibility of surgery. 12/16/2018 Cont bowel rest and IV antibiotics for acute sigmoid diverticulitis. 12/17/2018 slow improvement, cont care plan as above. Repeat labs in am. 12/18/18: Decreasing abdominal pain, benign abdominal exam, WBC down this morning, no fevers. Continue current abx regimen for uncomplicated diverticulitis. 12/19/18: Improving. WBC same as yesterday at 16K but down from 2 days ago, will continue follow. Afebrile and VSS. Continue current abx regimen. 12/20/18: Abdominal exam is benign, still somewhat distended. WBC persistently elevated at 16K. Will repeat abdominal/pelvis CT with IV contrast today. Pt on sips of clears and tolerating it. Advised to continue moderating intake until flatus amount improves. Continue PPI, lovenox for prophylaxis. Continue IV abx until tolerating regular diet. (2) SBO (small bowel obstruction) Status: Acute Assessment & Plan: 12/16/18 Pt required NGT decompression with high outputs over past 24 hours. Cont to LIS. KUB noted. Etiology indeterminate, reactive ileus vs mechanical sbo. Will consider SBFT if no improvement next 24 hours. 12/17/2018: NGT output less past 24 hours. Cont NGT until improved bowel function. Gentle [place] cathartics given her sigmoid inflammation per pt request. 12/18/18: Continuing decreasing NG tube output. Continue NG tube decompression and bowel rest and will await for signs of improved bowel function (flatus, less bloating, etc). 12/19/18: No flatus yet and KUB still with dilated small bowel without improvement when compared to 3 days ago. Will get SBFT today. Continue NG tube decompression, bowel rest, IV fluids, etc. If no improvement by tomorrow, will have PICC line placed and start TPN. 12/20/18: SBFT with gastrograffin to colon rapidly, no obstruction. Patient continues to pass contrast. SB dilation c/w ileus; not obstruction. Continue s low PO intake. Exam Sepsis Risk: No Definite Risk JOVANI NOVA MD Dec 20, 2018 12:38
--- NOTE | 2018-12-20 13:01 | General Surgery Progress Note ---
Subjective Progress Notes Subjective PICC line in. Discussed with anaesthesia. Concur pt needs NG pre-op because of obst and risk of aspiration with induction. Post op ICU Physical Exam Vital Signs Date Time Temp Pulse Resp B/P (MAP) Pulse Ox O2 Delivery O2 Flow Rate FiO2 12/20/18 10:44 99.1 94 18 148/82 (104) 90 Room Air 12/20/18 03:28 2.0 Intake and Output 12/20/18 07:02 Intake Total 320 ml Output Total 350 ml Balance -30 ml Intake Oral 120 ml IV Total 200 ml Gastric Drainage Total 250 ml Emesis 100 ml # Voids 7 # Bowel Movements 13 Result Diagram: 12/20/1828 12/20/18527 Monitor Interpretation: Normal Sinus Rhythm Assessment and Plan Problems: (1) Diverticulitis Status: Acute Assessment & Plan: no obstruction on ct yesterday. pt now has ileus or sbo secondary to diverticulitis. plan: iv abx, ivf, ngt, npo, serial exams/labs/xrays. sbo will likely resolve with treatment of diverticulitis; however, we did discuss the possibility of surgery. 12/16/2018 Cont bowel rest and IV antibiotics for acute sigmoid diverticulitis. 12/17/2018 slow improvement, cont care plan as above. Repeat labs in am. 12/18/18: Decreasing abdominal pain, benign abdominal exam, WBC down this morning, no fevers. Continue current abx regimen for uncomplicated diverticulitis. 12/19/18: Improving. WBC same as yesterday at 16K but down from 2 days ago, will continue follow. Afebrile and VSS. Continue current abx regimen. 12/20/18: Abdominal exam is benign, still somewhat distended. WBC persistently elevated at 16K. Will repeat abdominal/pelvis CT with IV contrast today. Pt on sips of clears and tolerating it. Advised to continue moderating intake until flatus amount improves. Continue PPI, lovenox for prophylaxis. Continue IV abx until tolerating regular diet. (2) SBO (small bowel obstruction) Status: Acute Assessment & Plan: 12/16/18 Pt required NGT decompression with high outputs over past 24 hours. Cont to LIS. KUB noted. Etiology indeterminate, reactive ileus vs mechanical sbo. Will consider SBFT if no improvement next 24 hours. 12/17/2018: NGT output less past 24 hours. Cont NGT until improved bowel function. Gentle [place] cathartics given her sigmoid inflammation per pt request. 12/18/18: Continuing decreasing NG tube output. Continue NG tube decompression and bowel rest and will await for signs of improved bowel function (flatus, less bloating, etc). 12/19/18: No flatus yet and KUB still with dilated small bowel without improvement when compared to 3 days ago. Will get SBFT today. Continue NG tube decompression, bowel rest, IV fluids, etc. If no improvement by tomorrow, will have PICC line placed and start TPN. 12/20/18: SBFT with gastrograffin to colon rapidly, no obstruction. Patient continues to pass contrast. SB dilation c/w ileus; not obstruction. Continue slow PO intake. Exam Sepsis Risk: No Definite Risk JOVANI NOVA MD Dec 20, 2018 13:01
[2018-12-20] MEDS: KCL/D1/2NS 20 MEQ 1000 ML 1,000 ML IV SCH ×2 (13:36→21:42)
--- NOTE | 2018-12-20 13:39 | RADIOLOGY IMAGING REPORT ---
FACILITY: [facility] - [place] PATIENT NAME: Sherron So : 1955 MR: [id number] V: [id number] EXAM DATE: ORDERING PHYSICIAN: JOVANI NOVA TECHNOLOGIST: Location: [facility] Patient: Sherron So : 1955 Visit/Account:[id number] Date of Sevice: 12/20/2018 Exam type: US GUIDANCE VASCULAR ACCESS, PICC LINE INSERTION History: [facility] IV abx/TPN Comparison: None. Findings: Informed consent was obtained. The patient's left arm was prepped and draped usual sterile fashion. Local anesthesia was accomplished with 1% lidocaine. Under direct and continuous sonographic guidan ce 18-gauge micropuncture needle was advanced percutaneously into the patent left basilic vein. Unde r fluoroscopic guidance the Guidewire was advanced through the needle to the level of the cavoatrial junction. The needle was removed and a peel-away sheath was advanced over the guidewire. The guidew stephany was removed and a 42 cm long trimmed 5 Indonesian double-lumen power PICC was inserted via the peel-a way sheath with the distal tip resting at the caval atrial junction. The peel-away sheath was remove d. Both lumens of the power PICC were flushed with 5 mL of saline flush. The proximal portion PICC line was adhered to the patient's arm the sterile dressing. The sonographic images were saved to PAC S. The procedure was accomplished without apparent competition. The fluoroscopy dose area product w as 36.43 micro-Lindsey per meter squared. IMPRESSION: 1. Successful placement of a 42 cm long trimmed 5 Indonesian double lumen power PICC inserted via the pa tent left basilic vein with the distal tip resting at the caval atrial junction. Both fluoroscopic a nd sonographic guidance was utilized. Report Dictated By: Alexandra uGerin MD at 12/20/2018 1:30 PM Report E-Signed By: Alexandra Guerin MD at 12/20/2018 1:32 PM WSN:[email or web address]
--- NOTE | 2018-12-20 13:40 | RADIOLOGY IMAGING REPORT ---
FACILITY: [facility] PATIENT NAME: Sherron So : 1955 MR: [id number] V: [id number] EXAM DATE: ORDERING PHYSICIAN: JOVANI NOVA TECHNOLOGIST: Location: [facility] Patient: Sherron So : 1955 Visit/Account:[id number] Date of Sevice: 12/20/2018 Exam type: US GUIDANCE VASCULAR ACCESS, PICC LINE INSERTION History: usp IV abx/TPN Comparison: None. Findings: Informed consent was obtained. The patient's left arm was prepped and draped usual sterile fashion. Local anesthesia was accomplished with 1% lidocaine. Under direct and continuous sonographic guidan ce 18-gauge micropuncture needle was advanced percutaneously into the patent left basilic vein. Unde r fluoroscopic guidance the Guidewire was advanced through the needle to the level of the cavoatrial junction. The needle was removed and a peel-away sheath was advanced over the guidewire. The guidew stephany was removed and a 42 cm long trimmed 5 Sinhala double-lumen power PICC was inserted via the peel-a way sheath with the distal tip resting at the caval atrial junction. The peel-away sheath was remove d. Both lumens of the power PICC were flushed with 5 mL of saline flush. The proximal portion PICC line was adhered to the patient's arm the sterile dressing. The sonographic images were saved to PAC S. The procedure was accomplished without apparent competition. The fluoroscopy dose area product w as 36.43 micro-Lindsey per meter squared. IMPRESSION: 1. Successful placement of a 42 cm long trimmed 5 Sinhala double lumen power PICC inserted via the pa tent left basilic vein with the distal tip resting at the caval atrial junction. Both fluoroscopic a nd sonographic guidance was utilized. Report Dictated By: Alexandra Guerin MD at 12/20/2018 1:30 PM Report E-Signed By: Alexandra Guerin MD at 12/20/2018 1:32 PM WSN:[email or web address]
[2018-12-20] MEDS ORDERED: LIDOCAINE 2% JELLY 5 ML TUBE TOP ONE (14:55)
[2018-12-20 15:27] VITALS: BP 163/94
[2018-12-20] MEDS: MORPHINE 2 MG/ML SYR IVP PRN ×2 (15:33→21:41)
--- NOTE | 2018-12-20 15:42 | RADIOLOGY IMAGING REPORT ---
FACILITY: [facility] [place] PATIENT NAME: Sherron So : 1955 MR: [id number] V: [id number] EXAM DATE: ORDERING PHYSICIAN: JOVANI NOVA TECHNOLOGIST: Location: [facility] [place] Patient: Sherron So : 1955 Visit/Account:[id number] Date of Sevice: 12/20/2018 Exam type: CHEST SINGLE AP History: NG tube placement Comparison: December 15, 2018. Findings: The NG tube passes through the expected location of the GE junction. The distal tip is not ideally v isualized due to technical factors although appears to be at least within the gastric fundus.. The u pper portion lung justin not included on the study. There is a left PICC line with the distal tip pr ojecting at the caval atrial junction. The visualized portion lung justin are free of consolidation. The cardiac silhouette is normal in size IMPRESSION: 1. The NG tube appears to pass to the expected location of the GE junction. The distal tip is not w ell seen due to technical factors although appears to be at least within the gastric fundus Report Dictated By: Alexandra Guerin MD at 12/20/2018 3:33 PM Report E-Signed By: Alexandra Guerin MD at 12/20/2018 3:35 PM WSN:ABY
[2018-12-20] MEDS ORDERED: NS(*) 0.9% 250 ML BAG 250 ML ONE (15:48)
--- NOTE | 2018-12-20 17:30 | General Surgery Progress Note ---
Subjective Progress Notes Subjective Increased pain--now about 7. Taking parenteral analgersics NG in More tender in LLQ Plan-OR in AM Physical Exam Vital Signs Date Time Temp Pulse Resp B/P (MAP) Pulse Ox O2 Delivery O2 Flow Rate FiO2 12/20/18 15:27 98.3 89 18 163/94 (117) 90 Room Air 12/20/18 03:28 2.0 Intake and Output 12/20/18 07:02 Intake Total 320 ml Output Total 350 ml Balance -30 ml Intake Oral 120 ml IV Total 200 ml Gastric Drainage Total 250 ml Emesis 100 ml # Voids 7 # Bowel Movements 13 Result Diagram: 12/20/18 0528 12/20/18 0528 Monitor Interpretation: Normal Sinus Rhythm Assessment and Plan Problems: (1) Diverticulitis Status: Acute Assessment & Plan: no obstruction on ct yesterday. pt now has ileus or sbo sec ondary to diverticulitis. plan: iv abx, ivf, ngt, npo, serial exams/labs/xrays. sbo will likely resolve with treatment of diverticulitis; however, we did discuss the possibility of surgery. 12/16/2018 Cont bowel rest and IV antibiotics for acute sigmoid diverticulitis. 12/17/2018 slow improvement, cont care plan as above. Repeat labs in am. 12/18/18: Decreasing abdominal pain, benign abdominal exam, WBC down this morning, no fevers. Continue current abx regimen for uncomplicated diverticulitis. 12/19/18: Improving. WBC same as yesterday at 16K but down from 2 days ago, will continue follow. Afebrile and VSS. Continue current abx regimen. 12/20/18: Abdominal exam is benign, still somewhat distended. WBC persistently elevated at 16K. Will repeat abdominal/pelvis CT with IV contrast today. Pt on sips of clears and tolerating it. Advised to continue moderating intake until flatus amount improves. Continue PPI, lovenox for prophylaxis. Continue IV abx until tolerating regular diet. (2) SBO (small bowel obstruction) Status: Acute Assessment & Plan: 12/16/18 Pt required NGT decompression with high outputs over past 24 hours. Cont to LIS. KUB noted. Etiology indeterminate, reactive ileus vs mechanical sbo. Will consider SBFT if no improvement next 24 hours. 12/17/2018: NGT output less past 24 hours. Cont NGT until improved bowel function. Gentle OK cathartics given her sigmoid inflammation per pt request. 12/18/18: Continuing decreasing NG tube output. Continue NG tube decompression and bowel rest and will await for signs of improved bowel function (flatus, less bloating, etc). 12/19/18: No flatus yet and KUB still with dilated small bowel without improvement when compared to 3 days ago. Will get SBFT today. Continue NG tube decompression, bowel rest, IV fluids, etc. If no improvement by tomorrow, will have PICC line placed and start TPN. 12/20/18: SBFT with gastrograffin to colon rapidly, no obstruction. Patient continues to pass contrast. SB dilation c/w ileus; not obstruction. Continue slow PO intake. Exam Sepsis Risk: No Definite Risk JOVANI NOVA MD Dec 20, 2018 17:30
[2018-12-20] MEDS: ONDANSETRON 4 MG/2 ML VIAL IVP PRN ×2 (18:00→21:41)
[2018-12-20 19:03] VITALS: BP 155/92
[2018-12-20 23:25] VITALS: BP 156/85
[2018-12-21] VITALS (44 sets, daily range): BP systolic 111–187; BP diastolic 82–121
[2018-12-21] MEDS: ONDANSETRON 4 MG/2 ML VIAL IVP PRN (02:38)
[2018-12-21] MEDS: MORPHINE 2 MG/ML SYR IVP PRN ×2 (02:38→14:43)
[2018-12-21] MEDS: PIPERACILLIN/TAZO*3.375GM VIAL 3.375 GM in NS(*) 0.9% 100 ML MINI-BAG 100 ML IVPB SCH ×4 (04:55→22:20)
[2018-12-21] MEDS: MOMETASONE/FORMOT 200MCG/5 MCG IH SCH ×2 (05:32→17:33)
[2018-12-21] MEDS: KCL/D1/2NS 20 MEQ 1000 ML 1,000 ML IV SCH (05:46)
[2018-12-21 06:29] LABS: PLATELET COUNT, AUTOMATED 317 K/uL (150-450)
[2018-12-21 06:32] LABS: INR 1.15
--- NOTE | 2018-12-21 07:18 | General Surgery Progress Note ---
Subjective Progress Notes Subjective afebrile, vss, voiding, NG modest, increased pain abd--soft localized peritoneal sign LLQ labs-continued leucocytosis with marked left shift. K repleted Plan--OR ICU post op Physical Exam Vital Signs Date Time Temp Pulse Resp B/P (MAP) Pulse Ox O2 Delivery O2 Flow Rate FiO2 12/21/18 07:01 99.2 85 16 140/91 (107) 95 Nasal Cannula 1.0 Intake and Output 12/21/18 07:02 Intake Total 1500 ml Balance 1500 ml Intake Oral 1100 ml IV Total 400 ml # Voids 4 # Bowel Movements 3 Result Diagram: 12/21/1852012/21/18520 Monitor Interpretation: Normal Sinus Rhythm Assessment and Plan Problems: (1) Diverticulitis Status: Acute Assessment & Plan: no obstruction on ct yesterday. pt now has ileus or sbo secondary to diverticulitis. plan: iv abx, ivf, ngt, npo, serial exams/labs/xrays. sbo will likely resolve with treatment of diverticulitis; however, we did discuss the possibility of surgery. 12/16/2018 Cont bowel rest and IV antibiotics for acute sigmoid diverticulitis. 12/17/2018 slow improvement, cont care plan as above. Repeat labs in am. 12/18/18: Decreasing abdominal pain, benign abdominal exam, WBC down this morning, no fevers. Continue current abx regimen for uncomplicated diverticulitis. 12/19/18: Improving. WBC same as yesterday at 16K but down from 2 days ago, will continue follow. Afebrile and VSS. Continue current abx regimen. 12/20/18: Abdominal exam is benign, still somewhat distended. WBC persistently elevated at 16K. Will repeat abdominal/pelvis CT with IV contrast today. Pt on sips of clears and tolerating it. Advised to continue moderating intake until flatus amount improves. Continue PPI, lovenox for prophylaxis. Continue IV abx until tolerating regular diet. (2) SBO (small bowel obstruction) Status: Acute Assessment & Plan: 12/16/18 Pt required NGT decompression with high outputs over past 24 hours. Cont to LIS. KUB noted. Etiology indeterminate, reactive ileus vs mechanical sbo. Will consider SBFT if no improvement next 24 hours. 12/17/2018: NGT output less past 24 hours. Cont NGT until improved bowel function. Gentle NE cathartics given her sigmoid inflammation per pt request. 12/18/18: Continuing decreasing NG tube output. Continue NG tube decompression and bowel rest and will await for signs of improved bowel function (flatus, less bloating, etc). 12/19/18: No flatus yet and KUB still with dilated small bowel without improvement when compared to 3 days ago. Will get SBFT today. Continue NG tube decompression, bowel rest, IV fluids, etc. If no improvement by tomorrow, will have PICC line placed and start TPN. 12/20/18: SBFT with gastrograffin to colon rapidly, no obstruction. Patient continues to pass contrast. SB dilation c/w ileus; not obstruction. Continue slow PO intake. Exam Sepsis Risk: No Definite Risk JOVANI NOVA MD Dec 21, 2018 07:18
[2018-12-21] MEDS ORDERED: MIDAZOLAM 2 MG/2 ML VIAL IVP ONE (07:30)
[2018-12-21] MEDS ORDERED: fentaNYL CITR 250 MCG/5 ML AMP ONE (07:36)
[2018-12-21] MEDS ORDERED: ONDANSETRON 4 MG/2 ML VIAL ONE (07:37)
[2018-12-21] MEDS ORDERED: ePHEDrine 25 MG/5 ML DISP.SYR IVP ONE (07:37)
[2018-12-21] MEDS ORDERED: DEXAMETHASONE SOD PHOS 10MG/ML ONE (07:37)
[2018-12-21] MEDS ORDERED: PROPOFOL EMUL(*) 10MG/ML 20 ML 20 ML ONE ×2 (07:37→12:42)
[2018-12-21] MEDS ORDERED: LIDOCAINE MPF 1% 5 ML VIAL ONE (07:37)
[2018-12-21] MEDS ORDERED: KETAMINE HCL-NS 50 MG/5 ML SYR ONE (07:38)
[2018-12-21] MEDS ORDERED: NORMOSOL R SOLN(*) 1000 ML BAG 1,000 ML IV ONE (08:00)
--- NOTE | 2018-12-21 08:18 | EKG ---
[place] [facility] [place]: VERO DISLA : [id number] MR: [id number] V: [id number] EXAM DATE: ORDERING PHYSICIAN: JOVANI NOVA TECHNOLOGIST: EUFEMIA Test Reason : PREOP-DIVERT Blood Pressure : / mmHG Vent. Rate : 076 BPM Atrial Rate : 076 BPM P-R Int : 132 ms QRS Dur : 126 ms QT Int : 390 ms P-R-T Axes : 064 081 046 degrees QTc Int : 438 ms Normal sinus rhythm with sinus arrhythmia Right bundle branch block Abnormal ECG No previous ECGs available Confirmed by VERNELL MARTINEZ ([id number]) on 12/21/2018 9:37:53 PM Referred By: AVTAR Confirmed By:VERNELL MARTINEZ
[2018-12-21] MEDS ORDERED: BACITRACIN ONE (08:48)
[2018-12-21] MEDS: PANTOPRAZOLE SOD 40 MG IV VIAL IVP SCH (08:51)
[2018-12-21] MEDS: LEVOTHYROXINE SOD 100 MCG VIAL IVP SCH (08:54)
[2018-12-21] MEDS ORDERED: ACETAMINOPHEN(*)1000 MG/100 ML 100 ML IVPB ONE (09:15)
[2018-12-21] MEDS ORDERED: HYDROmorphone HCL 2 MG/ML SDV ONE (09:44)
[2018-12-21] MEDS ORDERED: NS 0.9% 20 ML SDV 20 ML ONE (09:44)
[2018-12-21] MEDS ORDERED: KETOROLAC 30 MG/ML VIAL ONE (09:45)
[2018-12-21] MEDS ORDERED: SUGAMMADEX SOD 500 MG/5 ML SDV ONE (09:45)
[2018-12-21] MEDS ORDERED: BUPIVACAINE/EPI 0.5% 50ML VIAL INFIL ONE (09:47)
[2018-12-21] MEDS ORDERED: ROCURONIUM BR 10 MG/ML 5 ML SY 5 ML ONE ×2 (10:05→12:06)
[2018-12-21] MEDS ORDERED: fentaNYL CITR 100 MCG/2 ML AMP ONE (10:06)
--- NOTE | 2018-12-21 10:10 | Hospitalist Progress Note ---
Subjective Progress Notes Subjective This patient was admitted for diverticulitis. She is scheduled for surgery today. Patient Complains of: Cardiovascular: No: Chest Pain Respiratory: No: Shortness of Breath Physical Exam Vital Signs Date Time Temp Pulse Resp B/P (MAP) Pulse Ox O2 Delivery O2 Flow Rate FiO2 12/21/18 07:49 92 12/21/18 07:49 Room Air 12/21/18 07:01 99.2 85 16 140/91 (107) 1.0 Intake and Output 12/21/18 07:02 Intake Total 1500 ml Balance 1500 ml Intake Oral 1100 ml IV Total 400 ml # Voids 4 # Bowel Movements 3 Cardiovascular: Regular Rate and Rhythm Respiratory: Clear to Auscultation Result Diagram: 12/21/1852012/21/18520 Monitor Interpretation: Normal Sinus Rhythm Assessment and Plan Problems: (1) Diverticulitis Status: Acute Assessment & Plan: Her initial CT scan showed diverticulitis. She was placed o n Zosyn, and her WBC was improving. A subsequent CT scan showed abscess formation. She is scheduled for surgery today. (2) Ileus Assessment & Plan: Suspect most likely ileus (vs. SBO). She had dilated loops of small bowel on KUB. NG tube placed (now out). She is now on clear liquids. Dr. Moreno (surgery) is following as well. Small bowel with follow through (consistent with ileus) produced bowel movement. (3) HTN (hypertension) Status: Chronic Assessment & Plan: She is on chronic treatment with Amlodipine. Currently being held secondary to SBO. BPs have been in normal range. Will continue to monitor. (4) Asthma Status: Chronic Assessment & Plan: Continue Albuterol and Dulera. (5) Hypothyroidism Status: Chronic Assessment & Plan: She is currently Levothyroxine 25mcg IV daily. Her usual oral dose is 50mcg daily. If she tolerates clear liquids will restart her oral. (6) Pulmonary nodule Assessment & Plan: Her CT scan did show pulmonary nodules and she does have a remote history of smoking. A follow up CT scan is recommended in 3 months. Exam Sepsis Risk: No Definite Risk Problem Qualifiers (1) HTN (hypertension): Hypertension type: essential hypertension Qualified Codes: I10 - Essential (primary) hypertension VERNELL MARTINEZ DO Dec 21, 2018 10:10
[2018-12-21] MEDS ORDERED: metroNIDAZOLE* 500MG/100ML BAG 100 ML IVPB ONE (10:15)
[2018-12-21] MEDS ORDERED: KETAMINE HCL 200 MG/20 ML MDV ONE (10:25)
[2018-12-21] MEDS ORDERED: METHYLENE BLUE 0.5% ONE ×2 (10:47→12:38)
[2018-12-21] MEDS ORDERED: PROPOFOL(*)1000 MG/100 ML VIAL 100 ML IV PRN (12:01)
[2018-12-21] MEDS ORDERED: NS(*) 0.9% 500 ML BAG 500 ML ONE (12:54)
[2018-12-21] MEDS ORDERED: HYDROmorphone HCL 2 MG/ML SDV IVP PRN (14:10)
--- NOTE | 2018-12-21 14:15 | Post Operative Progress Note ---
Post Operative Progress Note Procedure(s): exploration, lilliana, drainage abscess, repair bladder, appendectomy, NILES,release of SBO, closure with retention sutures. SATURNINO Nova EBL 400 Drains-styles. 2 j/p's--one over bladder done, one in pelvic abscess NOTE: STYLES IS TO BE LEFT IN FOR 2 WEEKS. DO NOT REMOVE. Findings--gross peritonitis with extensive loculated fibrinopurulent exudate causing SBO with multiple, interloop abscess, large deep pelvic phlegmon contiguous and desmoplastic to bladder with gross perforation of colon and large abscess. Appendix encased in phlegmon. JOVANI NOVA MD Dec 21, 2018 14:15
[2018-12-21] MEDS: NS(*) 0.9% 1000 ML BAG 1,000 ML IV SCH ×2 (14:43→19:09)
[2018-12-21] MEDS ORDERED: IV BOLUS 500 ML IVSOL IV ONE (15:00)
[2018-12-21] MEDS ORDERED: ALBUMIN HUMAN 5% 250 ML BTL 250 ML IVPB ONE (15:30)
--- NOTE | 2018-12-21 15:31 | General Surgery Progress Note ---
Subjective Progress Notes Subjective Stable. Tachycardic and cold. Needs fluids and oncotic agent (alb given). Third spacing and vasodilating. UO clearing. LORENZO serosanguine. Dsg dry and intact. Ostomy viable. Continue. Pulm toilet. Will push/pull tomorrow with alb/lasix. Physical Exam Vital Signs Date Time Temp Pulse Resp B/P (MAP) Pulse Ox O2 Delivery O2 Flow Rate FiO2 12/21/18 15:18 96.6 12/21/18 15:15 126 19 121/86 (98) 96 Nasal Cannula 2.0 Intake and Output 12/21/18 07:02 Intake Total 1500 ml Balance 1500 ml Intake Oral 1100 ml IV Total 400 ml # Voids 4 # Bowel Movements 3 Result Diagram: 12/21/1852012/21/18520 Monitor Interpretation: Normal Sinus Rhythm Assessment and Plan Problems: (1) Diverticulitis Status: Acute Assessment & Plan: no obstruction on ct yesterday. pt now has ileus or sbo secondary to diverticulitis. plan: iv abx, ivf, ngt, npo, serial exams/labs/xrays. sbo will likely resolve with treatment of diverticulitis; however, we did discuss the possibility of surgery. 12/16/2018 Cont bowel rest and IV antibiotics for acute sigmoid diverticulitis. 12/17/2018 slow improvement, cont care plan as above. Repeat labs in am. 12/18/18: Decreasing abdominal pain, benign abdominal exam, WBC down this mor iliana, no fevers. Continue current abx regimen for uncomplicated diverticulitis. 12/19/18: Improving. WBC same as yesterday at 16K but down from 2 days ago, will continue follow. Afebrile and VSS. Continue current abx regimen. 12/20/18: Abdominal exam is benign, still somewhat distended. WBC persistently elevated at 16K. Will repeat abdominal/pelvis CT with IV contrast today. Pt on sips of clears and tolerating it. Advised to continue moderating intake until flatus amount improves. Continue PPI, lovenox for prophylaxis. Continue IV abx until tolerating regular diet. (2) SBO (small bowel obstruction) Status: Acute Assessment & Plan: 12/16/18 Pt required NGT decompression with high outputs over past 24 hours. Cont to LIS. KUB noted. Etiology indeterminate, reactive ileus vs mechanical sbo. Will consider SBFT if no improvement next 24 hours. 12/17/2018: NGT output less past 24 hours. Cont NGT until improved bowel function. Gentle [place] cathartics given her sigmoid inflammation per pt request. 12/18/18: Continuing decreasing NG tube output. Continue NG tube decompression and bowel rest and will await for signs of improved bowel function (flatus, less bloating, etc). 12/19/18: No flatus yet and KUB still with dilated small bowel without improvement when compared to 3 days ago. Will get SBFT today. Continue NG tube decompression, bowel rest, IV fluids, etc. If no improvement by tomorrow, will have PICC line placed and start TPN. 12/20/18: SBFT with gastrograffin to colon rapidly, no obstruction. Patient continues to pass contrast. SB dilation c/w ileus; not obstruction. Continue slow PO intake. Exam Sepsis Risk: No Definite Risk JOVANI NOVA MD Dec 21, 2018 15:31
[2018-12-21] MEDS: ACETAMINOPHEN(*)1000 MG/100 ML 100 ML IVPB SCH ×2 (17:21→23:01)
[2018-12-21] MEDS: metroNIDAZOLE* 500MG/100ML BAG 100 ML IVPB SCH (17:44)
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
[2018-12-21] MEDS: KETOROLAC 30 MG/ML VIAL IVP PRN (19:47)
[2018-12-21] MEDS ORDERED: ORAL SUCTION/CHLORHX/SWAB KIT MT SCH (21:00)
--- NOTE | 2018-12-21 21:43 | OPERATIVE REPORT 1 ---
EVENT DATE: December 21, 2018 SURGEON: Kin Espinoza MD ANESTHESIOLOGIST: Rohit Anderson MD ANESTHESIA: General endotracheal. PREOPERATIVE DIAGNOSES 1. Perforated diverticulitis with multiple pelvic and intra-abdominal abscesses, not approachable by Interventional Radiology. 2. Small bowel obstruction. POSTOPERATIVE DIAGNOSES 1. Gross peritonitis with extensive loculated fibrinopurulent exudates causing small bowel obstruction with multiple interloop abscesses. 2. Large, deep pelvic phlegmon contiguous and desmoplastic to bladder with gross perforation of the colon secondary to diverticulitis and large abscess. 3. Appendix encased in phlegmon, intra-abdominal adhesions. PROCEDURES PERFORMED 1. Exploration. 2. Gumaro procedure. 3. Drainage of pelvic abscess. 4. Repair of bladder. 5. Appendectomy. 6. Lysis of adhesions. 7. Release of small bowel obstruction. 8. Closure with retention sutures. 9. Primary maturation of Gumaro. INDICATIONS FOR OPERATION This is a reasonably healthy female who has had a hysterectomy in the past, who presented with her first episode of acute diverticulitis. However, she was ill for close to two weeks prior to coming to the hospital. Her CT scan, indeed, revealed a sigmoid diverticulitis deep in the pelvis with a likely phlegmon. She clinically began with a leukocytosis and a fever, was placed on intravenous antibiotics and bowel rest, and surprisingly improved clinically. However, she maintained a leukocytosis without a fever and still had left lower quadrant pain. Moreover, in subcutaneous plain films of her abdomen, she had a definitive small bowel obstruction with a transition point in her ileum. She had an interval CAT scan which showed a large pelvic abscess and phlegmon and an interloop large abscess as well. Her small bowel obstruction persisted with the transition point in the ileum. I went over these x-rays personally with the radiologist, and [facility] the [facility]al radiologist where we sent the films, and I asked if these were amenable to percutaneous drainage. He felt that they were not due to their anatomical location. At this point, the patient was put back on bowel rest completely. A nasogastric tube was inserted to prevent reflux aspiration upon induction of anesthesia. Her antibiotic regimen was broadened. Clearly, the only safe option would be surgical intervention. She was already on sequential compression boots, and she was taken to the operating room. DESCRIPTION OF PROCEDURE The patient was brought to the operating room where satisfactory general endotracheal anesthesia was induced. Her abdomen was prepped and draped in the usual sterile fashion. Her abdomen was marked preoperatively for appropriate placement anatomically of an optimal location for a stoma. A Brown catheter was inserted, which remained at the end of the procedure. After adequate prepping and draping, 0.5% Marcaine with epinephrine was infiltrated for better postoperative analgesia. A midline incision was made. Skin and subcutaneous tissues were divided. The abdomen was entered. Immediately one could appreciate gross peritonitis with extensive loculated fibrinopurulent exudate. Certainly, this was not an acute process and was more consistent with a rather protracted one as described and defined by her symptomatology of one to two weeks. There were extensive intra-abdominal adhesions both interloop and to the anterior abdominal wall. The gross pus was cultured aerobically and anaerobically. Upon freeing up all the adhesions, one could see there was a definitive significant small bowel obstruction, and this was caused by interloop abscesses and fibrinopurulent exudate causing generally soft adhesions, but with a definitive transition point as seen on the CAT scan. There was a fair amount of succus entericus as well. All of these interloop adhesions and fibrinopurulent exudate were able to be divided by careful blunt dissection, and the obstruction was relieved. It should be mentioned that at the end of the procedure, the nasogastric tube was advanced to a relatively distal position in the stomach, and I was able to adequately milk the succus entericus proximally such that it could be reasonably well decompressed and evacuated via the nasogastric tube. At this point, continuation of the exploration revealed a very large, complex, deep pelvic phlegmon contiguous and desmoplastic to the bladder as the patient had a prior hysterectomy. Dissection proceeded initially by mobilizing along the line of Toldt, and it was very desmoplastic and stuck down deep in the pelvis. Dissection proceeded along the line of Toldt, mobilizing the left colon adequately and proximally to the splenic flexure. Distal dissection was very difficult as there were no good surgical planes, and the bladder was essentially in a desmoplastic fashion adherent to the grossly perforated rectosigmoid with stool and a pelvic abscess. The ureters were preserved by clearly anatomically staying away from them. The pelvic phlegmon was so large that the relatively redundant cecum and its concomitant appendix was encased in the phlegmon. At this point, dissection proceeded where there were no good anatomical planes staying anteriorly to the colon and dissection in the sacral promontory to elevate the rectosigmoid. During the dissection of the anterior portion of the phlegmon involving anteriorly the rectum, the bladder was entered and recognized immediately, and this was not surprising that this happened as there were no anatomical planes between the two. Upon immediate recognition of this, the bladder was repaired in two layers using 3-0 chromic and 3-0 Vicryl. Dissection proceeded to finally elevate the rectosigmoid out of the pelvis, clear the stool that was there and the abscess, and find a plane where the distal rectosigmoid could be divided as the Gumaro pouch. Prior to that, however, an area of mid sigmoid was cleared of its appendices epiploica, and using the GABRIELLE staple anastomotic device, the mid sigmoid was transected. At this point, attention was turned to the rectosigmoid which would be resected during the Gumaro procedure, and this was mobilized out of the pelvis along the sacral promontory. A curved Meli clamp was applied at the rectum, which was quite distal in the pelvis. This was clamped. The rectosigmoid was removed and sent to Pathology. At this point, using an 0 Prolene suture, the Gumaro pouch was closed first with a Christian-Cai technique, followed with an overlying baseball suture of 0 Prolene. The ends were left long such that this could be located for future reanastomosis. At this point, I had already asked Dr. Lopez of Urology to come in and evaluate from the urologic perspective. We worked together, and there were several small leaks that we could tell in the bladder, which we oversewed with heavy chromic. We injected methylene blue intravenously and did not see any leaks. We also irrigated the Brown catheter both with saline and with methylene blue mixed with saline, and there were several small leaks around the suture line of the closure of the bladder which were repaired by heavy chromic. It should be mentioned that the integrity of the bladder was very poor because of its contiguous location adherent to the perforated colon. At this point, we were satisfied that all significant leakage from the suture line of the bladder was contained. Following this, a Keenan-Herron drain 10 mm was placed on the right side of the abdomen through a separate stab wound and placed over the dome of the bladder for drainage of the bladder. A second 10 mm Keenan-Herron drain was placed in the depths of the pelvis for drainage of the pelvic abscess. These were sutured in place with silk. At this point, copious irrigation with antibiotic irrigant was performed with multiple liters. The effluent was clear. Hemostasis throughout the procedure obtained with electrocautery, high ligation with heavy silk, and Weck clip application. As was mentioned prior, the cecum, particularly the appendix, was encased in this phlegmon, and the safest approach I felt was to remove the appendix as should this patient get appendicitis, it would almost be impossible to get to the appendix. Therefore, the mesoappendix was clamped, divided, and tied with heavy silk including the appendiceal artery. The appendix was crushed with a crush clamp, amputated. Its tip was touched to avoid a mucocele. A 3-0 silk suture was placed in the base of the appendix and the cecum. The appendiceal stump was inverted, and the pursestring suture was secured. Several interrupted 3-0 Lembert intestinal sutures were placed to secure this area. Again, irrigation was performed in this area. Drains were in place. Following this at the appropriate marked spot for the ostomy, having mobilized the left colon satisfactorily up to the splenic flexure, a circular ostomy aperture was made, and using a cruciate incision through the rectus musculature, the aperture ostomy was made admitting two fingerbreadths easily. Very carefully without twisting, the stapled end of the colon was brought through the opening with great care to ensure that the orientation would be correct without any twisting. Following this as mentioned prior, the succus entericus of the small bowel was milked proximally and evacuated with the NG. In view of the patient's large size and sizable panniculus and significant edema in her tissues, it was felt best to close her abdomen with retention sutures as well. #2 nylon retention sutures with bumpers were placed in a simple fashion full thickness, but just superficial to the peritoneum. Following this, the abdomen was closed with a running #1 looped PDS suture. The soft tissues were irrigated. The skin was closed gently and loosely with skin padmini. A dressing was applied accordingly. At this point, primary maturation of the Gumaro was performed by resecting the staple line and doing a standard Yvette approach in lipping the ostomy with 3-0 Vicryl sutures done in quadrants and then bisected the quadrants as well. The ostomy was nicely viable with good blood flow. I put my gloved finger through the ostomy and traversed nicely into the left colon. An ostomy appliance was applied. Following this, all dressings were applied. The patient tolerated the procedure satisfactorily. Estimated blood loss approximately 350 to 400 mL. The Brown catheter will remain in the patient for two weeks as well as the drain over the bladder. The patient was extubated, and the nasogastric tube was removed. This patient since has been sick for some time and has a PICC line, I will begin within a day or so total parenteral nutrition as I think that she will require this. IDALMIS
[2018-12-22] VITALS (81 sets, daily range): BP systolic 98–178; BP diastolic 49–119
[2018-12-22] MEDS: metroNIDAZOLE* 500MG/100ML BAG 100 ML IVPB SCH ×3 (00:41→17:27)
[2018-12-22] MEDS: NS(*) 0.9% 1000 ML BAG 1,000 ML IV SCH ×3 (03:04→21:54)
[2018-12-22] MEDS: KETOROLAC 30 MG/ML VIAL IVP PRN ×3 (03:46→21:54)
[2018-12-22] MEDS: PIPERACILLIN/TAZO*3.375GM VIAL 3.375 GM in NS(*) 0.9% 100 ML MINI-BAG 100 ML IVPB SCH ×4 (04:34→21:55)
[2018-12-22] MEDS: ACETAMINOPHEN(*)1000 MG/100 ML 100 ML IVPB SCH ×4 (04:51→23:04)
[2018-12-22] MEDS: MOMETASONE/FORMOT 200MCG/5 MCG IH SCH ×2 (05:00→17:23)
[2018-12-22 05:07] LABS: PLATELET COUNT, AUTOMATED 348 K/uL (150-450)
[2018-12-22 05:11] LABS: INR 1.34
--- NOTE | 2018-12-22 06:27 | EKG ---
FACILITY: [facility] PATIENT NAME: VERO DISLA : [id number] MR: [id number] V: [id number] EXAM DATE: ORDERING PHYSICIAN: JOVANI NOVA TECHNOLOGIST: CHANNING Blue Reason : POSTOP Blood Pressure : / mmHG Vent. Rate : 079 BPM Atrial Rate : 079 BPM P-R Int : 124 ms QRS Dur : 122 ms QT Int : 404 ms P-R-T Axes : 066 078 046 degrees QTc Int : 463 ms Normal sinus rhythm Right bundle branch block Abnormal ECG When compared with ECG of 21-DEC-2018 07:40, No significant change was found Confirmed by VERNELL MARTINEZ ([id number]) on 12/22/2018 6:26:22 AM Referred By: WHITNEY Confirmed By:VERNELL MARTINEZ
[2018-12-22] MEDS: MORPHINE 2 MG/ML SYR IVP PRN ×4 (06:33→21:54)
--- NOTE | 2018-12-22 06:42 | General Surgery Progress Note ---
Subjective Progress Notes Subjective Low grade fever, VSS, not tachycardic anymore, UO OK-clear (tint by MB), no gas/BM via ostomy chest BBS CXR OK abd soft, quiet, dsg changed, some oozing, ostomy swollen, viable, wound OK, LORENZO serosanguine labs-leukomoid reaction. Remainder reviewed Plan: Expectantly septic. Continue IV hydration, antibiotics, pulm toilet, ambulate, stay in unit, maintain drains and styles. Push pull with alb/lasix. Await functional peristalsis Physical Exam Vital Signs Date Time Temp Pulse Resp B/P (MAP) Pulse Ox O2 Delivery O2 Flow Rate FiO2 12/22/18 03:57 95 Nasal Cannula 2.0 12/22/18 03:46 96 12/22/18 03:30 99.6 15 166/95 (118) Intake and Output 12/22/18 07:02 Intake Total 2905 ml Output Total 972 ml Balance 1933 ml IV Total 2905 ml Output Urine Total 422 ml Drainage Total 550 ml # Voids 2 Result Diagram: 12/22/18 0453 12/22/18 0453 Monitor Interpretation: Normal Sinus Rhythm Assessment and Plan Problems: (1) Diverticulitis Status: Acute Assessment & Plan: no obstruction on ct yesterday. pt now has ileus or sbo secondary to diverticulitis. plan: iv abx, ivf, ngt, npo, serial exams/labs/xrays. sbo will likely resolve with treatment of diverticulitis; however, we did discuss the possibility of surgery. 12/16/2018 Cont bowel rest and IV antibiotics for acute sigmoid diverticulitis. 12/17/2018 slow improvement, cont care plan as above. Repeat labs in am. 12/18/18: Decreasing abdominal pain, benign abdominal exam, WBC down this morning, no fevers. Continue current abx regimen for uncomplicated diverticulitis. 12/19/18: Improving. WBC same as yesterday at 16K but down from 2 days ago, will continue follow. Afebrile and VSS. Continue current abx regimen. 12/20/18: Abdominal exam is benign, still somewhat distended. WBC persistently elevated at 16K. Will repeat abdominal/pelvis CT with IV contrast today. Pt on sips of clears and tolerating it. Advised to continue moderating intake until flatus amount improves. Continue PPI, lovenox for prophylaxis. Continue IV abx until tolerating regular diet. (2) SBO (small bowel obstruction) Status: Acute Assessment & Plan: 12/16/18 Pt required NGT decompression with high outputs over past 24 hours. Cont to LIS. KUB noted. Etiology indeterminate, reactive ileus vs mechanical sbo. Will consider SBFT if no improvement next 24 hours. 12/17/2018: NGT output less past 24 hours. Cont NGT until improved bowel function. Gentle LA cathartics given her sigmoid inflammation per pt request. 12/18/18: Continuing decreasing NG tube output. Continue NG tube decompression and bowel rest and will await for signs of improved bowel function (flatus, less bloating, etc). 12/19/18: No flatus yet and KUB still with dilated small bowel without improvement when compared to 3 days ago. Will get SBFT today. Continue NG tube decompression, bowel rest, IV fluids, etc. If no improvement by tomorrow, will have PICC line placed and start TPN. 12/20/18: SBFT with gastrograffin to colon rapidly, no obstruction. Patient continues to pass contrast. SB dilation c/w ileus; not obstruction. Continue slow PO intake. Exam Sepsis Risk: Sepsis Risk JOVANI NOVA MD Dec 22, 2018 06:42
--- NOTE | 2018-12-22 06:45 | RADIOLOGY IMAGING REPORT ---
[place] [facility] [place] Sherron So : 1955 MR: [id number] V: [id number] EXAM DATE: ORDERING PHYSICIAN: JOVANI NOVA TECHNOLOGIST: Location: [facility] [place] Patient: Sherron So : 1955 Visit/Account:[id number] Date of Sevice: 12/22/2018 CHEST SINGLE AP COMPARISONS: Single view chest dated December 20, 2018 ADDITIONAL PERTINENT HISTORY: Postop FINDINGS: Life-support: Left-sided PICC line with its tip at the cavoatrial junction. Cardiomediastinal silhouette: Negative. Pulmonary vasculature: Atherosclerotic disease of the thoracic aortic arch. Lung justin: Negative. Pleural spaces: Negative. Osseous structures: Negative. Surrounding soft tissues: Negative. IMPRESSION: 1. Left-sided PICC line. 2. No evidence of acute cardiopulmonary disease. Report Dictated By: Jovani Kc MD at 12/22/2018 6:37 AM Report E-Signed By: Jovani Kc MD at 12/22/2018 6:38 AM WSN:[id number]
[2018-12-22] MEDS ORDERED: ALBUMIN HUMAN 5% 250 ML BTL 250 ML IVPB ONE ×2 (08:00→09:00)
--- NOTE | 2018-12-22 08:28 | General Surgery Progress Note ---
Subjective Progress Notes Subjective Pt oozing from SQ in mid incision. PT OK, platelet OK. DC'd lovenox Took out some padmini mid incision, oozing, no definite pumpers, irrigated, reji and surgicel and dsd occlusively. Plan---do not change dsg. Hold lovenox. Will decide tomorrow if reinstitute. Check CBC Physical Exam Vital Signs Date Time Temp Pulse Resp B/P (MAP) Pulse Ox O2 Delivery O2 Flow Rate FiO2 12/22/18 06:30 99.7 93 19 161/91 (114) 97 Nasal Cannula 2.0 Intake and Output 12/22/18 07:02 Intake Total 4478 ml Output Total 1097 ml Balance 3381 ml IV Total 4478 ml Output Urine Total 497 ml Drainage Total 600 ml # Voids 2 Result Diagram: 12/22/18 0453 12/22/18 0453 Monitor Interpretation: Normal Sinus Rhythm Assessment and Plan Problems: (1) Diverticulitis Status: Acute Assessment & Plan: no obstruction on ct yesterday. pt now has ileus or sbo secondary to diverticulitis. plan: iv abx, ivf, ngt, npo, serial exams/labs/xrays. sbo will likely resolve with treatment of diverticulitis; however, we did discuss the possibility of surgery. 12/16/2018 Cont bowel rest and IV antibiotics for acute sigmoid diverticulitis. 12/17/2018 slow improvement, cont care plan as above. Repeat labs in am. 12/18/18: Decreasing abdominal pain, benign abdominal exam, WBC down this morning, no fevers. Continue current abx regimen for uncomplicated diverticulitis. 12/19/18: Improving. WBC same as yesterday at 16K but down from 2 days ago, will continue follow. Afebrile and VSS. Continue current abx regimen. 12/20/18: Abdominal exam is benign, still somewhat distended. WBC persistently elevated at 16K. Will repeat abdominal/pelvis CT with IV contrast today. Pt on sips of clears and tolerating it. Advised to continue moderating intake until flatus amount improves. Continue PPI, lovenox for prophylaxis. Continue IV abx until tolerating regular diet. (2) SBO (small bowel obstruction) Status: Acute Assessment & Plan: 12/16/18 Pt required NGT decompression with high outputs over past 24 hours. Cont to LIS. KUB noted. Etiology indeterminate, reactive ileus vs mechanical sbo. Will consider SBFT if no improvement next 24 hours. 12/17/2018: NGT output less past 24 hours. Cont NGT until improved bowel function. Gentle CO cathartics given her sigmoid inflammation per pt request. 12/18/18: Continuing decreasing NG tube output. Continue NG tube decompression and bowel rest and will await for signs of improved bowel function (flatus, less bloating, etc). 12/19/18: No flatus yet and KUB still with dilated small bowel without improvement when compared to 3 days ago. Will get SBFT today. Continue NG tube decompression, bowel rest, IV fluids, etc. If no improvement by tomorrow, will have PICC line placed and start TPN. 12/20/18: SBFT with gastrograffin to colon rapidly, no obstruction. Patient continues to pass contrast. SB dilation c/w ileus; not obstruction. Continue slow PO intake. Exam Sepsis Risk: Sepsis Risk JOVANI NOVA MD Dec 22, 2018 08:28
[2018-12-22] MEDS: PANTOPRAZOLE SOD 40 MG IV VIAL IVP SCH (08:52)
[2018-12-22] MEDS: LEVOTHYROXINE SOD 100 MCG VIAL IVP SCH (08:53)
[2018-12-22] MEDS ORDERED: ENOXAPARIN 40 MG/0.4ML SYR SC SCH (09:00)
--- NOTE | 2018-12-22 09:21 | Hospitalist Progress Note ---
Subjective Progress Notes Subjective Nursing staff reports the patient has a small vessel at the incision site which is bleeding. Physical Exam Vital Signs Date Time Temp Pulse Resp B/P (MAP) Pulse Ox O2 Delivery O2 Flow Rate FiO2 12/22/18 06:30 99.7 93 19 161/91 (114) 97 Nasal Cannula 2.0 Intake and Output 12/22/18 07:02 Intake Total 4478 ml Output Total 1097 ml Balance 3381 ml IV Total 4478 ml Output Urine Total 497 ml Drainage Total 600 ml # Voids 2 General Appearance: Alert, Awake, No Acute Distress, Other (Temperature curve is improving.) Neuro: No Gross deficits Eyes: PERRLA Cardiovascular: Regular Rate and Rhythm Respiratory: Clear to Auscultation GI: Other (Large midline incision with padmini in place. Distended. Colostomy in place L midabdomen. Top of surgical wound with active bleeding. No redness or discharge otherwise. BS quiet.) Extremities: Warm, Perfused Integumentary: Other (Large midline abdominal surgical wound as above.) Psych: Appropriate Mood & Affect Result Diagram: 12/22/1845212/22/18452 Monitor Interpretation: Normal Sinus Rhythm Assessment and Plan Problems: (1) Diverticulitis Status: Acute Assessment & Plan: Her initial CT scan showed diverticulitis. She was placed on Zosyn, and her WBC was improving. A subsequent CT scan showed abscess formation. She underwent extensive surgery on 12/[address] Espinoza (see surgery notes for details) and is now in ICU. WBC is up today. Will continue Zosyn and monitor closely. Dr. Espinoza managing the bleeding at the incision site. (2) Ileus Assessment & Plan: Suspect most likely ileus (vs. SBO). She had dilated loops o f small bowel on KUB. CT showed abscess formation which is the likely culprit. Surgical intervention as above. (3) HTN (hypertension) Status: Chronic Assessment & Plan: She is on chronic treatment with Amlodipine. Currently being held secondary to SBO. BPs have been in normal range. Will continue to monitor. (4) Asthma Status: Chronic Assessment & Plan: Continue Albuterol and Dulera. (5) Hypothyroidism Status: Chronic Assessment & Plan: She is currently Levothyroxine 25mcg IV daily. Her usual ora l dose is 50mcg daily. If she tolerates clear liquids will restart her oral. (6) Pulmonary nodule Assessment & Plan: Her CT scan did show pulmonary nodules and she does have a remote history of smoking. A follow up CT scan is recommended in 3 months. Time Spent on Plan of Care: < 30 min Exam Sepsis Risk: Sepsis Risk Problem Qualifiers (1) HTN (hypertension): Hypertension type: essential hypertension Qualified Codes: I10 - Essential (primary) hypertension SIRISHA OLSON MD Dec 22, 2018 09:21
[2018-12-22] MEDS ORDERED: FUROSEMIDE 20 MG/2 ML VIAL IVP ONE (10:00)
--- NOTE | 2018-12-22 11:01 | Medical Nutrition Therapy ---
Nutrition Anthropometrics Height (Inches): 67.50 Height (Calculated Centimeters: 171.771267 Weight (Pounds): 210 Weight (Calculated Kilograms): 95.254 Puneet Nutrition Score: Very Poor Puneet Nutrition Risk Score: 14 Dietary Referral Nutrition Risk Factors: Nutrition Risk Comment: Nutritional Diagnosis Nutritional Risk Acuity 1: NPO/CL > 3 days, GI Obstruction Nutritional Acuity: 1-High Nutrition Diagnosis: Altered GI Function Nutrition Etiology: Psychological Issues Nutrition Problem/Etiology/Sym: AEB dx ileus or sbo secondary to diverticulitis. Energy Requirement: 2140 (1900- 2375, 20-25 kcal/kg) Protein Requirement: 76 (.8gm-kcal) Diet Type: NPO (Nothing by Mouth) Nutrition Intervention: Nutrition support, Incr diet as tolerated Additional Diet Restrictions: PROVIDE CLEAR LIQUID NUTR SUPPLEMENT WHEN ON CLEAR LIQUID DIET Nutritional Support Recommended Enteral / Parental: TPN Recommended Rate: Final rate 75ml/hr dextrose 20%, AA 5% + lipids Recommended Duration: 24 Recommended Calories: 1584 Recommended Protein: 90 Recommended Lipids Calories: 500 Total Recommended Calories: 2084 Nutrition Monitoring & Eval Nutritional Goals Comment: Nutrtional needs will be met thur nutritional support until oral intake can meet needs RD Patient Assessment Time: [address] Assessment Type: RD Re-Assessment Patient Nutrition Acuity: 1-High Follow Up Date: Dec 23, 2018 Nutritional Comment: 12/16 Pt admitted with ileus or SBO secondary to diverticulitis. Pt currently NPO. Alb 2.9 pt has nonpitting edema BLE. No ht obtained. Will cont to monitor. ANGIE 12/19 Pt 5th day NPO. Recommend nutrtional support if diet not advanced. 75ml/hr TPN plus lipids would meet nutritional needs. K+ 3.4, pt is recieving K+ supplement. Alb declined to 3. Pt has 2+ edema BLE. Nursing reporting flatus present and hypoactive bowel sounds. Will cont to monitor. ANGIE 12/22 NPO day 8. Discussed with Dr Espinoza who stated he will start TPN 12/23. TPN at final rate of 75ml/hr plus lipids should meet nutritonal needs. alblow at 2.1, Hgb low at 10.6, Hct low at 31.1. Will cont to monitor. ABHINAV SPENCE Dec 22, 2018 11:01
[2018-12-22 12:10] LABS: PLATELET COUNT, AUTOMATED 324 K/uL (150-450)
--- NOTE | 2018-12-22 12:43 | General Surgery Progress Note ---
Subjective Progress Notes Subjective H/H noted. Mo further clinical bleeding. To recheck later. Physical Exam Vital Signs Date Time Temp Pulse Resp B/P (MAP) Pulse Ox O2 Delivery O2 Flow Rate FiO2 12/22/18 11:51 98 12/22/18 11:33 97 Nasal Cannula 2.0 12/22/18 11:30 99.2 18 164/49 (87) Intake and Output 12/22/18 07:02 Intake Total 4478 ml Output Total 1097 ml Balance 3381 ml IV Total 4478 ml Output Urine Total 497 ml Drainage Total 600 ml # Voids 2 Result Diagram: 12/22/18 1202 12/22/18 0453 Monitor Interpretation: Normal Sinus Rhythm Assessment and Plan Problems: (1) Diverticulitis Status: Acute Assessment & Plan: no obstruction on ct yesterday. pt now has ileus or sbo secondary to diverticulitis. plan: iv abx, ivf, ngt, npo, serial exams/labs/xrays. sbo will likely resolve with treatment of diverticulitis; however, we did discuss the possibility of surgery. 12/16/2018 Cont bowel rest and IV antibiotics for acute sigmoid diverticulitis. 12/17/2018 slow improvement, cont care plan as above. Repeat labs in am. 12/18/18: Decreasing abdominal pain, benign abdominal exam, WBC down this morning, no fevers. Continue current abx regimen for uncomplicated diverticulitis. 12/19/18: Improving. WBC same as yesterday at 16K but down from 2 days ago, will continue follow. Afebrile and VSS. Continue current abx regimen. 12/20/18: Abdominal exam is benign, still somewhat distended. WBC persistently elevated at 16K. Will repeat abdominal/pelvis CT with IV contrast today. Pt on sips of clears and tolerating it. Advised to continue moderating intake until flatus amount improves. Continue PPI, lovenox for prophylaxis. Continue IV abx until tolerating regular diet. (2) SBO (small bowel obstruction) Status: Acute Assessment & Plan: 12/16/18 Pt required NGT decompression with high outputs over past 24 hours. Cont to LIS. KUB noted. Etiology indeterminate, reactive ileus vs mechanical sbo. Will consider SBFT if no improvement next 24 hours. 12/17/2018: NGT output less past 24 hours. Cont NGT until improved bowel function. Gentle [place] cathartics given her sigmoid inflammation per pt request. 12/18/18: Continuing decreasing NG tube output. Continue NG tube decompression and bowel rest and will await for signs of improved bowel function (flatus, less bloating, etc). 12/19/18: No flatus yet and KUB still with dilated small bowel without i mprovement when compared to 3 days ago. Will get SBFT today. Continue NG tube decompression, bowel rest, IV fluids, etc. If no improvement by tomorrow, will have PICC line placed and start TPN. 12/20/18: SBFT with gastrograffin to colon rapidly, no obstruction. Patient continues to pass contrast. SB dilation c/w ileus; not obstruction. Continue slow PO intake. Exam Sepsis Risk: No Definite Risk JOVANI NOVA MD Dec 22, 2018 12:43
--- NOTE | 2018-12-22 16:23 | General Surgery Progress Note ---
Subjective Progress Notes Subjective afebrile, vss, UO good and clear No further bleeding New H/H pending. Will check Physical Exam Vital Signs Date Time Temp Pulse Resp B/P (MAP) Pulse Ox O2 Delivery O2 Flow Rate FiO2 12/22/18 16:14 97 Nasal Cannula 2.0 12/22/18 14:15 94 18 148/79 (102) 12/22/18 11:30 99.2 Intake and Output 12/22/18 07:02 Intake Total 4478 ml Output Total 1097 ml Balance 3381 ml IV Total 4478 ml Output Urine Total 497 ml Drainage Total 600 ml # Voids 2 Result Diagram: 12/22/18 1202 12/22/18 0453 Monitor Interpretation: Normal Sinus Rhythm Assessment and Plan Problems: (1) Diverticulitis Status: Acute Assessment & Plan: no obstruction on ct yesterday. pt now has ileus or sbo secondary to diverticulitis. plan: iv abx, ivf, ngt, npo, serial exams/labs/xrays. sbo will likely resolve with treatment of diverticulitis; however, we did discuss the possibility of surgery. 12/16/2018 Cont bowel rest and IV antibiotics for acute sigmoid diverticulitis. 12/17/2018 slow improvement, cont care plan as above. Repeat labs in am. 12/18/18: Decreasing abdominal pain, benign abdominal exam, WBC down this morning, no fevers. Continue current abx regimen for uncomplicated diverticulitis. 12/19/18: Improving. WBC same as yesterday at 16K but down from 2 days ago, will continue follow. Afebrile and VSS. Continue current abx regimen. 12/20/18: Abdominal exam is benign, still somewhat distended. WBC persistently elevated at 16K. Will repeat abdominal/pelvis CT with IV contrast today. Pt on sips of clears and tolerating it. Advised to continue moderating intake until flatus amount improves. Continue PPI, lovenox for prophylaxis. Continue IV abx until tolerating regular diet. (2) SBO (small bowel obstruction) Status: Acute Assessment & Plan: 12/16/18 Pt required NGT decompression with high outputs over past 24 hours. Cont to LIS. KUB noted. Etiology indeterminate, reactive ileus vs mechanical sbo. Will consider SBFT if no improvement next 24 hours. 12/17/2018: NGT output less past 24 hours. Cont NGT until improved bowel func tion. Gentle [place] cathartics given her sigmoid inflammation per pt request. 12/18/18: Continuing decreasing NG tube output. Continue NG tube decompression and bowel rest and will await for signs of improved bowel function (flatus, less bloating, etc). 12/19/18: No flatus yet and KUB still with dilated small bowel without improvement when compared to 3 days ago. Will get SBFT today. Continue NG tube decompression, bowel rest, IV fluids, etc. If no improvement by tomorrow, will have PICC line placed and start TPN. 12/20/18: SBFT with gastrograffin to colon rapidly, no obstruction. Patient co ntinues to pass contrast. SB dilation c/w ileus; not obstruction. Continue slow PO intake. Exam Sepsis Risk: No Definite Risk JOVANI NOVA MD Dec 22, 2018 16:23
--- NOTE | 2018-12-22 16:44 | General Surgery Progress Note ---
Subjective Progress Notes Subjective Repeat H/H---7.9/23.6 Will check AM H/H--may need TX. Physical Exam Vital Signs Date Time Temp Pulse Resp B/P (MAP) Pulse Ox O2 Delivery O2 Flow Rate FiO2 12/22/18 16:15 99.2 97 21 164/78 (106) 95 Nasal Cannula 2.0 Intake and Output 12/22/18 07:02 Intake Total 4478 ml Output Total 1097 ml Balance 3381 ml IV Total 4478 ml Output Urine Total 497 ml Drainage Total 600 ml # Voids 2 Result Diagram: 12/22/18 1625 12/22/18 0453 Monitor Interpretation: Normal Sinus Rhythm Assessment and Plan Problems: (1) Diverticulitis Status: Acute Assessment & Plan: no obstruction on ct yesterday. pt now has ileus or sbo seco ndary to diverticulitis. plan: iv abx, ivf, ngt, npo, serial exams/labs/xrays. sbo will likely resolve with treatment of diverticulitis; however, we did discuss the possibility of surgery. 12/16/2018 Cont bowel rest and IV antibiotics for acute sigmoid diverticulitis. 12/17/2018 slow improvement, cont care plan as above. Repeat labs in am. 12/18/18: Decreasing abdominal pain, benign abdominal exam, WBC down this morning, no fevers. Continue current abx regimen for uncomplicated diverticulitis. 12/19/18: Improving. WBC same as yesterday at 16K but down from 2 days ago, will continue follow. Afebrile and VSS. Continue current abx regimen. 12/20/18: Abdominal exam is benign, still somewhat distended. WBC persistently elevated at 16K. Will repeat abdominal/pelvis CT with IV contrast today. Pt on sips of clears and tolerating it. Advised to continue moderating intake until flatus amount improves. Continue PPI, lovenox for prophylaxis. Continue IV abx until tolerating regular diet. (2) SBO (small bowel obstruction) Status: Acute Assessment & Plan: 12/16/18 Pt required NGT decompression with high outputs over past 24 hours. Cont to LIS. KUB noted. Etiology indeterminate, reactive ileus vs mechanical sbo. Will consider SBFT if no improvement next 24 hours. 12/17/2018: NGT output less past 24 hours. Cont NGT until improved bowel function. Gentle [place] cathartics given her sigmoid inflammation per pt request. 12/18/18: Continuing decreasing NG tube output. Continue NG tube decompression and bowel rest and will await for signs of improved bowel function (flatus, less bloating, etc). 12/19/18: No flatus yet and KUB still with dilated small bowel without improvement when compared to 3 days ago. Will get SBFT today. Continue NG tube decompression, bowel rest, IV fluids, etc. If no improvement by tomorrow, will have PICC line placed and start TPN. 12/20/18: SBFT with gastrograffin to colon rapidly, no obstruction. Patient continues to pass contrast. SB dilation c/w ileus; not obstruction. Continue slow PO intake. Exam Sepsis Risk: No Definite Risk JOVANI NOVA MD Dec 22, 2018 16:44
[2018-12-23] VITALS (36 sets, daily range): BP systolic 111–177; BP diastolic 63–106
[2018-12-23] MEDS: metroNIDAZOLE* 500MG/100ML BAG 100 ML IVPB SCH ×3 (00:51→17:39)
[2018-12-23] MEDS: MORPHINE 2 MG/ML SYR IVP PRN ×4 (03:40→23:17)
[2018-12-23] MEDS: PIPERACILLIN/TAZO*3.375GM VIAL 3.375 GM in NS(*) 0.9% 100 ML MINI-BAG 100 ML IVPB SCH ×4 (03:52→22:44)
[2018-12-23] MEDS: ACETAMINOPHEN(*)1000 MG/100 ML 100 ML IVPB SCH ×4 (04:38→23:23)
[2018-12-23 05:06] LABS: PLATELET COUNT, AUTOMATED 279 K/uL (150-450)
[2018-12-23 05:12] LABS: INR 1.41
[2018-12-23] MEDS: MOMETASONE/FORMOT 200MCG/5 MCG IH SCH ×2 (05:27→17:46)
--- NOTE | 2018-12-23 06:04 | RADIOLOGY IMAGING REPORT ---
FACILITY: [facility] PATIENT NAME: Sherron So : 1955 MR: [id number] V: [id number] EXAM DATE: ORDERING PHYSICIAN: JOVANI NOVA [place]CHNOLOG[place] [facility] [place]ron So : 1955 Visit/Account:[id number] Date of Sevice: 12/23/2018 CHEST SINGLE AP COMPARISONS: Single view chest dated December 22, 2018 ADDITIONAL PERTINENT HISTORY: Postop FINDINGS: Life-support: Left-sided PICC line with its tip in the distal SVC. Cardiomediastinal silhouette: Negative. Pulmonary vasculature: Negative. Lung justin: Negative. Pleural spaces: Negative. Osseous structures: Negative. Surrounding soft tissues: Negative. IMPRESSION: No evidence of acute cardiopulmonary disease. Report Dictated By: Jovani Kc MD at 12/23/2018 5:56 AM Report E-Signed By: Jovani Kc MD at 12/23/2018 5:58 AM WSN:[id number]
[2018-12-23] MEDS ORDERED: KCL/D1/2NS 20 MEQ 1000 ML 1,000 ML IV SCH (06:20)
--- NOTE | 2018-12-23 06:41 | General Surgery Progress Note ---
Subjective Progress Notes Subjective No complaints this morning. Pain well controlled. No N/V. Feels hungry. Physical Exam Vital Signs Date Time Temp Pulse Resp B/P (MAP) Pulse Ox O2 Delivery O2 Flow Rate FiO2 12/23/18 06:30 97 13 157/79 (105) 95 Nasal Cannula 2.0 12/23/18 03:30 98.2 Intake and Output 12/23/18 07:02 Intake Total 4042 ml Output Total 1960 ml Balance 2082 ml IV Total 4042 ml Output Urine Total 1890 ml Drainage Total 70 ml General Appearance: Alert, Awake, No Acute Distress, Afebrile GI: Other (Soft, mildly distended, dressing in place (C/D/I), stoma is pink. No gas or stool in bag yet.) Extremities: Warm, Perfused Result Diagram: 12/23/18 0455 12/23/18 0455 Monitor Interpretation: Normal Sinus Rhythm Assessment and Plan Problems: (1) Diverticulitis Status: Acute Assessment & Plan: no obstruction on ct yesterday. pt now has ileus or sbo secondary to diverticulitis. plan: iv abx, ivf, ngt, npo, serial exams/labs/xrays. sbo will likely resolve with treatment of diverticulitis; however, we did discuss the possibility of surgery. 12/16/2018 Cont bowel rest and IV antibiotics for acute sigmoid diverticulitis. 12/17/2018 slow improvement, cont care plan as above. Repeat labs in am. 12/18/18: Decreasing abdominal pain, benign abdominal exam, WBC down this morning, no fevers. Continue current abx regimen for uncomplicated diverticulitis. 12/19/18: Improving. WBC same as yesterday at 16K but down from 2 days ago, will continue follow. Afebrile and VSS. Continue current abx regimen. 12/20/18: Abdominal exam is benign, still somewhat distended. WBC persistently elevated at 16K. Will repeat abdominal/pelvis CT with IV contrast today. Pt on sips of clears and tolerating it. Advised to continue moderating intake until flatus amount improves. Continue PPI, lovenox for prophylaxis. Continue IV abx until tolerating regular diet. 12/23/18: POD#1 s/p ex-lap with Gumaro's procedure, appendectomy, bladder repair by Dr. Espinoza (please refer to his op note and daily progress notes for details over the last 3 days). Pt seems to be doing well. WBC trending down, will follow. H/H down, she had some bleeding from her laparotomy wound that Dr. Espinoza opened and applied hemostatic agents yesterday. Will transfuse 2 Units pRBC and follow H/H. Will hold off on blood thinners until tomorrow and then restart if hemostatic. Continue PPI. OOB to chair and ambulate qid. PT/OT to evaluate and treat. Start TPN today as she hasn't eaten for over a week. Will start ice chips today. Will transfer to Med/Surg. (2) SBO (small bowel obstruction) Status: Acute Assessment & Plan: 12/16/18 Pt required NGT decompression with high outputs over past 24 hours. Cont to LIS. KUB noted. Etiology indeterminate, reactive ileus vs mechanical sbo. Will consider SBFT if no improvement next 24 hours. 12/17/2018: NGT output less past 24 hours. Cont NGT until improved bowel func tion. Gentle [place] cathartics given her sigmoid inflammation per pt request. 12/18/18: Continuing decreasing NG tube output. Continue NG tube decompression and bowel rest and will await for signs of improved bowel function (flatus, less bloating, etc). 12/19/18: No flatus yet and KUB still with dilated small bowel without improvement when compared to 3 days ago. Will get SBFT today. Continue NG tube decompression, bowel rest, IV fluids, etc. If no improvement by tomorrow, will have PICC line placed and start TPN. 12/20/18: SBFT with gastrograffin to colon rapidly, no obstruction. Patient co ntinues to pass contrast. SB dilation c/w ileus; not obstruction. Continue slow PO intake. 12/23/18: SBO due to perforated diverticulitis with phlegmon, relieved by surgery 2 days ago. (3) Anemia Status: Acute Assessment & Plan: 12/23/18: Postop anemia from acute blood loss and hemodilution. Transfuse 2 Units pRBC today and follow H/H. Condition Stable. Time Spent: < 30 min Exam Sepsis Risk: Sepsis Risk Problem Qualifiers (1) Anemia: Anemia type: other cause Other causes of anemia: other cause, not classified Qualified Codes: D64.89 - Other specified anemias VERNELL HERNANDEZ MD Dec 23, 2018 06:41
[2018-12-23] MEDS ORDERED: NS(*) 0.9% 500 ML BAG 500 ML ONE (06:55)
[2018-12-23] MEDS: KCL (*) 20 MEQ/100 ML PREMIX 100 ML IV SCH ×2 (07:23→09:42)
--- NOTE | 2018-12-23 08:12 | Hospitalist Progress Note ---
Subjective Progress Notes Subjective She reports doing well. She wants to start mobilizing. Physical Exam Vital Signs Date Time Temp Pulse Resp B/P (MAP) Pulse Ox O2 Delivery O2 Flow Rate FiO2 12/23/18 07:24 98.2 92 18 145/81 12/23/18 06:30 95 Nasal Cannula 2.0 Intake and Output 12/23/18 07:02 Intake Total 4042 ml Output Total 1960 ml Balance 2082 ml IV Total 4042 ml Output Urine Total 1890 ml Drainage Total 70 ml General Appearance: Alert, Awake Cardiovascular: Regular Rate and Rhythm Respiratory: Clear to Auscultation (anteriorly) Extremities: Warm, Perfused Psych: Alert & Oriented X3 Result Diagram: 12/23/18 0455 12/23/18 0455 Monitor Interpretation: Normal Sinus Rhythm Assessment and Plan Problems: (1) Diverticulitis Status: Acute Assessment & Plan: Her initial CT scan showed diverticulitis. She was placed on Zosyn, and her WBC was improving. A subsequent CT scan showed abscess formation. She underwent extensive surgery on 12/[address] Espinoza (see surgery notes for details) and was admitted to the ICU post-op. Surgery (Dr. Moreno) managing. Hgb/Hct have dropped post-op. She will be transfused 2 units PRBC toda y. TPN starting today. Will continue IV Zosyn. Monitor closely. (2) Ileus Assessment & Plan: Suspect most likely ileus (vs. SBO). She had dilated loops of small bowel on KUB. CT showed abscess formation which is the likely culprit. Surgical intervention as above. (3) HTN (hypertension) Status: Chronic Assessment & Plan: She is on chronic treatment with Amlodipine. Currently being held secondary to SBO. BPs have been in normal range. Will continue to monitor. (4) Asthma Status: Chronic Assessment & Plan: Continue Albuterol and Dulera. (5) Hypothyroidism Status: Chronic Assessment & Plan: She is currently Levothyroxine 25mcg IV daily. Her usual oral dose is 50mcg daily. If she tolerates clear liquids will restart her oral. (6) Pulmonary nodule Assessment & Plan: Her CT scan did show pulmonary nodules and she does have a remote history of smoking. A follow up CT scan is recommended in 3 months. (7) Hypokalemia Status: Acute Assessment & Plan: She will be given IV supplements. Watch labs. Exam Sepsis Risk: Sepsis Risk Problem Qualifiers (1) HTN (hypertension): Hypertension type: essential hypertension Qualified Codes: I10 - Essential (primary) hypertension ELLIE OLSON MD Dec 23, 2018 08:12
--- NOTE | 2018-12-23 08:41 | OPERATIVE REPORT 1 ---
EVENT DATE: December 22, 2018 SURGEON: Roc Lopez MD ANESTHESIOLOGIST: Rohit Anderson MD ANESTHESIA: General. ATTENDING: Kin Espinoza MD DESCRIPTION OF PROCEDURE This is a 63-year old white female complaining of pelvic abscess from perforated diverticulum. Patient is being treated by Dr. Kin Espinoza. See his notes for details. During the treatment of draining of the abscess and the partial colectomy, the bladder was inadvertently entered anteriorly. The cystotomy appears to be approximately 3 to 4 inches in the greatest length. The cystotomy was partially closed by Dr. Espinoza at the time I arrived. Fluid was introduced into the bladder and several areas of drainage were oversewn with [id number] 2-0 chromic catgut sutures. This required approximately 8 to 10 sutures. Methylene blue was used at the conclusion of the repair. There appeared to be minimal seepage along the line of repair. The patient's bladder was put to gravity drainage with an indwelling catheter. The indwelling catheter will be in for at least two weeks, possibly more, to ensure that the bladder heals satisfactorily and will be functional once the healing process is completed. I assisted Dr. Espinoza in closing the patient's abdomen and this concluded my part of the assistance in the care of this patient. Thank you for letting me share in the care of your patient. It is sincerely appreciated. IMPRESSION Bladder injury during operative procedure for treatment of perforated diverticulum and pelvic abscess by Dr. Kin Espinoza. TREATMENT Closure of cystotomy. [facility]
--- NOTE | 2018-12-23 09:23 | Medical Nutrition Therapy ---
Nutrition Anthropometrics Height (Inches): 67.50 Height (Calculated Centimeters: 171.581112 Weight (Pounds): 210 Weight (Calculated Kilograms): 95.254 BMI: 32.4 Puneet Nutrition Score: Very Poor Puneet Nutrition Risk Score: 14 Dietary Referral Nutrition Risk Factors: Nutrition Risk Comment: Physical Findings Physical Appearance: Obese BMI 30-39 Skin Appearance Skin Appearance: Edema Edema Location Modifier: Both Edema Location: Lower Extremity Type of Edema: Degree of Edema: 1+ Gastrointestinal Symptoms GI Symtoms: Nausea, Change in Bowel Pattern Tube Present: NG Bowel Sounds: Recent Bowel Pattern: Diarrhea Stool Characteristics: Nutrition/Food History Poor Nutritional Diagnosis Nutritional Risk Acuity 1: NPO/CL > 3 days, GI Obstruction Nutritional Acuity: 1-High Nutrition Diagnosis: Altered GI Function Nutrition Etiology: Psychological Issues Nutrition Problem/Etiology/Sym: AEB dx ileus or sbo secondary to diverticulitis. Energy Requirement: 2021 (MSJ(AF 1.3)) Protein Requirement: 95 (.8gm-kcal) Fluid Requirement: 2021 (1mL/kcal) Diet Type: NPO (Nothing by Mouth) Nutrition Intervention: Nutrition support, Incr diet as tolerated Additional Diet Restrictions: PROVIDE CLEAR LIQUID NUTR SUPPLEMENT WHEN ON CLEAR LIQUID DIET Nutritional Support Recommended Enteral / Parental: TPN Recommended Rate: Final rate 80ml/hr D20%, AA5% + Qgrdhh16% Recommended Goal Rate: 80mL/hr (Start at 30mL/hr advance by 10mL every 8 hours to goal rate) Recommended Duration: 24 Recommended Calories: 1690 Recommended Protein: 96 Recommended Lipids Calories: 332 Total Recommended Calories: 2021 Nutrition Monitoring & Eval Nutrition Monitoring: Monitor electrolytes, triglycerides, BG, weight RD Patient Assessment Time: [address] Assessment Type: RD Re-Assessment Patient Nutrition Acuity: 1-High Follow Up Date: Dec 23, 2018 Nutritional Comment: 12/16 Pt admitted with ileus or SBO secondary to diverticulitis. Pt currently NPO. Alb 2.9 pt has nonpitting edema BLE. No ht obtained. Will cont to monitor. BK / Pt 5th day NPO. Recommend nutrtional support if diet not advanced. 75ml/hr TPN plus lipids would meet nutritional needs. K+ 3.4, pt is recieving K+ supplement. Alb declined to 3. Pt has 2+ edema BLE. Nursing reporting flatus present and hypoactive bowel sounds. Will cont to monitor. BK 12/22 NPO day 8. Discussed with Dr Espinoza who stated he will start TPN 12/23. TPN at final rate of 75ml/hr plus lipids should meet nutritonal needs. alblow at 2.1, Hgb low at 10.6, Hct low at 31.1. Will cont to monitor. BK 12/23/18-Reviewed hx, discussed pt with fellow RD. Recalculated energy and protein needs. Recommend start TPN at 30mL/hr and advance by 10mL every 8 hours to goal rate of 80mL/hr. Run Lipids IVPB at 14mL/hr for 12 hrs. At goal rate TPN will provide 2022 kcal with (1306 kcal (384g D20%), 384 kcal from AA5%(96 g), and 336 kcal Lipid20%(33.6g). TPN will meet 100% of estimated energy and protein needs. Will continue to monitor electrolytes, BG, weight and adjust TPN as needed.CHEYENNE HAQ Dec 23, 2018 09:23
[2018-12-23] MEDS ORDERED: INSULIN HUM LISPRO 100 UN/ML 3 ML VIAL SUBQ PRN (09:35)
[2018-12-23] MEDS: PANTOPRAZOLE SOD 40 MG IV VIAL IVP SCH (09:42)
[2018-12-23] MEDS: LEVOTHYROXINE SOD 100 MCG VIAL IVP SCH (09:42)
[2018-12-23] MEDS: KETOROLAC 30 MG/ML VIAL IVP PRN (11:17)
--- NOTE | 2018-12-23 12:01 | NUR ---
Physical Therapy Impression PT eval complete. Pt able to transfer supine>sit via log roll technique and use of rail with head of bed elevated and SBA. Pt able to perform a stand step pivot transfer with CGA from bed>chair. Recommendations pending progress. Physical Therapy Goals 1. SBA bed mobility vai log roll. 2. SBA transfers. 3. SBA gait x 150' with appropriate assistive device. 4. Ascend/descend 4 stairs with 1 rail SBA. Patient's Goals
--- NOTE | 2018-12-23 15:39 | NUR ---
Occupational Therapy Impression Initial OT evaluation completed. SBA ambulation 2x15ft with RW. VSS throughout. Occupational Therapy Goals 1) Pt will be Modified Independent UB/LB dressing. 2) Pt will be Independent grooming standing. Patient's Goal
[2018-12-23] MEDS ORDERED: INSULIN HUM REG 100 UN/ML 3 ML 10 UNIT, MULTIVITAMINS(*) 10 ML VIAL 10 ML, TRACE METALS... IV ONE (16:00)
[2018-12-23] MEDS: FAT EMULSION 20% 250 ML BAG 250 ML IVPB SCH (16:21)
[2018-12-23] MEDS: KCL/D1/2NS 20 MEQ 1000 ML 1,000 ML IV PRN (22:30)
[2018-12-23] MEDS: ONDANSETRON 4 MG/2 ML VIAL IVP PRN (23:46)
[2018-12-24] VITALS (7 sets, daily range): BP systolic 149–182; BP diastolic 78–93
[2018-12-24] MEDS: metroNIDAZOLE* 500MG/100ML BAG 100 ML IVPB SCH ×3 (01:16→17:32)
[2018-12-24] MEDS: PIPERACILLIN/TAZO*3.375GM VIAL 3.375 GM in NS(*) 0.9% 100 ML MINI-BAG 100 ML IVPB SCH ×4 (04:38→22:51)
[2018-12-24] MEDS: ACETAMINOPHEN(*)1000 MG/100 ML 100 ML IVPB SCH ×4 (05:24→23:00)
[2018-12-24 05:28] LABS: PLATELET COUNT, AUTOMATED 328 K/uL (150-450)
[2018-12-24] MEDS: MOMETASONE/FORMOT 200MCG/5 MCG IH SCH ×2 (05:34→18:22)
--- NOTE | 2018-12-24 06:49 | General Surgery Progress Note ---
Subjective Progress Notes Subjective Main complaint this morning is back pain from "laying in bed too much." Appetite is returning. Pain controlled. Physical Exam Vital Signs Date Time Temp Pulse Resp B/P (MAP) Pulse Ox O2 Delivery O2 Flow Rate FiO2 12/24/18 03:37 98.7 16 157/91 (113) 97 Nasal Cannula 2.0 12/23/18 23:52 85 Intake and Output 12/24/18 07:02 Intake Total 2563 ml Output Total 1255 ml Balance 1308 ml Intake Oral 120 ml IV Total 2193 ml Blood Product 250 ml Output Urine Total 875 ml Stool Total 300 ml Drainage Total 80 ml General Appearance: Alert, Awake, No Acute Distress, Afebrile GI: Other (SOft, appropriate postop TTP, stoma is pink with some liquid stool in the bag, not much gas yet. Midline incision looks good, no erythema and minimal drainage. Open portion of the wound explored, hemostatic agent removed, no further bleeding. Drains with serosanguinous drainage, drain sites look good.) Extremities: Warm, Perfused Result Diagram: 12/24/18 0510 12/24/18 0510 Monitor Interpretation: Normal Sinus Rhythm Assessment and Plan Problems: (1) Diverticulitis Status: Acute Assessment & Plan: no obstruction on ct yesterday. pt now has ileus or sbo secondary to diverticulitis. plan: iv abx, ivf, ngt, npo, serial exams/labs/xrays. sbo will likely resolve with treatment of diverticulitis; however, we did discuss the possibility of surgery. 12/16/2018 Cont bowel rest and IV antibiotics for acute sigmoid diverticulitis. 12/17/2018 slow improvement, cont care plan as above. Repeat labs in am. 12/18/18: Decreasing abdominal pain, benign abdominal exam, WBC down this morning, no fevers. Continue current abx regimen for uncomplicated diver ticulitis. 12/19/18: Improving. WBC same as yesterday at 16K but down from 2 days ago, will continue follow. Afebrile and VSS. Continue current abx regimen. 12/20/18: Abdominal exam is benign, still somewhat distended. WBC persistently elevated at 16K. Will repeat abdominal/pelvis CT with IV contrast today. Pt on sips of clears and tolerating it. Advised to continue moderating intake until flatus amount improves. Continue PPI, lovenox for prophylaxis. Continue IV abx until tolerating regular diet. 12/23/18: POD#2 s/p ex-lap with Gumaro's procedure, appendectomy, bladder repair by Dr. Espinoza (please refer to his op note and daily progress notes for details over the last 3 days). Pt seems to be doing well. WBC trending down, will follow. H/H down, she had some bleeding from her laparotomy wound that Dr. Espinoza opened and applied hemostatic agents yesterday. Will transfuse 2 Units pRBC and follow H/H. Will hold off on blood thinners until tomorrow and then restart if hemostatic. Continue PPI. OOB to chair and ambulate qid. PT/OT to evaluate and treat. Start TPN today as she hasn't eaten for over a week. Will start ice chips today. Will transfer to Med/Surg. 12/24/18: POD#3. Doing well. Start wound care. Stoma teaching. Continue current diet until more gas output from stoma. Continue TPN. Ambulation. Voltaren for back pain. WBC up to 26K today, will follow this; no fevers or tachycardia. H/H responded to 2Units pRBC, follow. Aggressive pulmonary hygien e, IS, ambulation, PT/OT, restart lovenox, continue PPI. (2) SBO (small bowel obstruction) Status: Resolved Assessment & Plan: 12/16/18 Pt required NGT decompression with high outputs over past 24 hours. Cont to LIS. KUB noted. Etiology indeterminate, reactive ileus vs mechanical sbo. Will consider SBFT if no improvement next 24 hours. 12/17/2018: NGT output less past 24 hours. Cont NGT until improved bowel function. Gentle [place] cathartics given her sigmoid inflammation per pt request. 12/18/18: Continuing decreasing NG tube output. Continue NG tube decompression and bowel rest and will await for signs of improved bowel function (flatus, less bloating, etc). 12/19/18: No flatus yet and KUB still with dilated small bowel without improvement when compared to 3 days ago. Will get SBFT today. Continue NG tube decompression, bowel rest, IV fluids, etc. If no improvement by tomorrow, will have PICC line placed and start TPN. 12/20/18: SBFT with gastrograffin to colon rapidly, no obstruction. Patient continues to pass contrast. SB dilation c/w ileus; not obstruction. Continue slow PO intake. 12/23/18: SBO due to perforated diverticulitis with phlegmon, relieved by surgery 2 days ago. (3) Anemia Status: Acute Assessment & Plan: 12/23/18: Postop anemia from acute blood loss and hemodilution. Transfuse 2 Units pRBC today and follow H/H. Condition Stable. Time Spent: < 30 min Exam Sepsis Risk: No Definite Risk Problem Qualifiers (1) Anemia: Anemia type: other cause Other causes of anemia: other cause, not classified Qualified Codes: D64.89 - Other specified anemias VERNELL HERNANDEZ MD Dec 24, 2018 06:49
[2018-12-24] MEDS ORDERED: KCL (*) 20 MEQ/100 ML PREMIX 100 ML IV SCH ×2 (06:50→14:00)
[2018-12-24] MEDS: ENOXAPARIN 40 MG/0.4ML SYR SC SCH (08:42)
[2018-12-24] MEDS: PANTOPRAZOLE SOD 40 MG IV VIAL IVP SCH (08:43)
[2018-12-24] MEDS: LEVOTHYROXINE SOD 100 MCG VIAL IVP SCH (08:44)
[2018-12-24] MEDS: KETOROLAC 30 MG/ML VIAL IVP PRN ×3 (08:51→23:47)
--- NOTE | 2018-12-24 11:35 | Hospitalist Progress Note ---
Subjective Progress Notes Subjective JEMAL overnight, reports some back pain associated with immobility and being in bed. Patient Complains of: Gastrointestinal: Flatus; No Nausea, No Vomiting Physical Exam Vital Signs Date Time Temp Pulse Resp B/P (MAP) Pulse Ox O2 Delivery O2 Flow Rate FiO2 12/24/18 11:26 98.4 75 20 151/83 (105) 96 Nasal Cannula 2.0 Intake and Output 12/24/18 07:02 Intake Total 3143 ml Output Total 1185 ml Balance 1958 ml Intake Oral 100 ml IV Total 2793 ml Blood Product 250 ml Output Urine Total 875 ml Stool Total 250 ml Drainage Total 60 ml General Appearance: Alert, Awake, No Acute Distress Neuro: No Gross deficits Cardiovascular: Normal Rhythm & Peripheral Pulses Respiratory: No Respiratory Distress GI: Soft and Non-Tender (+ colostomy, + LORENZO drain with small amount serosang uinous drainage) Extremities: Soft and Non Tender, Warm, Pulses, Perfused Result Diagram: 12/24/1850912/24/18509 Monitor Interpretation: Normal Sinus Rhythm Assessment and Plan Problems: (1) Diverticulitis Status: Acute Assessment & Plan: Her initial CT scan showed diverticulitis. She was placed on Zosyn, and her WBC was improving. A subsequent CT scan showed abscess formation. She underwent extensive surgery on 12/[address] Espinoza (see surgery notes for details). Surgery (Dr. Moreno) managing. Hgb/Hct have dropped post- op. S/P 2 units PRBC on 12.23. TPN, Will continue IV Zosyn. Monitor closely. (2) Ileus Assessment & Plan: Suspect most likely ileus (vs. SBO). She had dilated loops of small bowel on KUB. CT showed abscess formation which is the likely culprit. Improved (3) HTN (hypertension) Status: Chronic Assessment & Plan: She is on chronic treatment with Amlodipine. Currently being held secondary to SBO. BPs have been in normal range. Will continue to monitor. (4) Asthma Status: Chronic Assessment & Plan: Continue Albuterol and Dulera. (5) Hypothyroidism Status: Chronic Assessment & Plan: She is currently Levothyroxine 25mcg IV daily. Her usual oral dose is 50mcg daily. If she tolerates clear liquids will restart her oral. (6) Pulmonary nodule Assessment & Plan: Her CT scan did show pulmonary nodules and she does have a remote history of smoking. A follow up CT scan is recommended in 3 months. (7) Hypokalemia Status: Acute Assessment & Plan: She will be given IV supplements. Watch labs. Exam Sepsis Risk: No Definite Risk Problem Qualifiers (1) HTN (hypertension): Hypertension type: essential hypertension Qualified Codes: I10 - Essential (primary) hypertension FOREIGN HOLDER DO Dec 24, 2018 11:35
--- NOTE | 2018-12-24 11:40 | NUR ---
Occupational Therapy Impression Pt in shower and unavailable at first OT attempt this date. Upon 2nd attempt, pt politely declining tx due to fatigue. Pt agreeable to OT following up this afternoon. Occupational Therapy Goals 1) Pt will be Modified Independent UB/LB dressing. 2) Pt will be Independent grooming standing. Patient's Goal
--- NOTE | 2018-12-24 14:40 | NUR ---
Physical Therapy Impression Pt was very agreeable to ambulate in hallway x 250' with PT assist to manage IV lines. Pt utilized FWW for support but notes that she is feeling better overall, "just fatigued". Physical Therapy Goals 1. SBA bed mobility vai log roll. 2. SBA transfers. 3. SBA gait x 150' with appropriate assistive device. 4. Ascend/descend 4 stairs with 1 rail SBA. Patient's Goals
--- NOTE | 2018-12-24 15:05 | NUR ---
Occupational Therapy Impression Pt declined OT tx upon 3rd attempt. Fatigued after having been up ambulating prior and requesting OT return tomorrow when spouse is present to address ADLs. Will follow. Occupational Therapy Goals 1) Pt will be Modified Independent UB/LB dressing. 2) Pt will be Independent grooming standing. Patient's Goal
[2018-12-24] MEDS ORDERED: FUROSEMIDE 20 MG/2 ML VIAL IVP ONE ×2 (15:55→19:25)
[2018-12-24] MEDS ORDERED: 1: INSULIN HUM REG 100 UN/ML 3 ML 10 UNIT, MULTIVITAMINS(*) 10 ML VIAL 10 ML, TRACE META IV SCH ×2 (16:00)
[2018-12-24] MEDS: FAT EMULSION 20% 250 ML BAG 250 ML IVPB SCH (16:30)
[2018-12-24] MEDS: 1: INSULIN HUM REG 100 UN/ML 3 ML 10 UNIT, MULTIVITAMINS(*) 10 ML VIAL 10 ML, TRACE META IV SCH (16:31)
[2018-12-24] MEDS ORDERED: FUROSEMIDE 40 MG/4 ML VIAL IVP ONE (19:15)
[2018-12-24] MEDS: KCL (*) 20 MEQ/100 ML PREMIX 100 ML IV SCH ×2 (20:39→22:50)
[2018-12-25] MEDS: metroNIDAZOLE* 500MG/100ML BAG 100 ML IVPB SCH ×3 (01:32→17:18)
[2018-12-25 03:58] VITALS: BP 154/80
[2018-12-25] MEDS: 1: INSULIN HUM REG 100 UN/ML 3 ML 10 UNIT, MULTIVITAMINS(*) 10 ML VIAL 10 ML, TRACE META IV SCH ×2 (04:47→17:44)
[2018-12-25] MEDS: PIPERACILLIN/TAZO*3.375GM VIAL 3.375 GM in NS(*) 0.9% 100 ML MINI-BAG 100 ML IVPB SCH ×4 (04:48→22:25)
[2018-12-25] MEDS: ACETAMINOPHEN(*)1000 MG/100 ML 100 ML IVPB SCH ×4 (05:32→23:24)
[2018-12-25] MEDS: MOMETASONE/FORMOT 200MCG/5 MCG IH SCH ×2 (05:50→17:28)
[2018-12-25 06:03] LABS: PLATELET COUNT, AUTOMATED 426 K/uL (150-450)
--- NOTE | 2018-12-25 06:50 | NUR ---
random glucose of 100mg/dL taken with morning labs at 0515. no fingerstick necessary Addendum: 12/25/18 at 0651 by JESUS MCKINNEY RN Amended: Links added.
[2018-12-25] MEDS ORDERED: NS 0.9% IRRIGATION 500 ML PLCT 500 ML IR ONE (07:04)
[2018-12-25] MEDS ORDERED: FUROSEMIDE 40 MG/4 ML VIAL IVP ONE (07:15)
--- NOTE | 2018-12-25 07:21 | General Surgery Progress Note ---
Subjective Progress Notes Subjective No complaints this morning. Not much pain. Stoma is more active, now putting out gas. Physical Exam Vital Signs Date Time Temp Pulse Resp B/P (MAP) Pulse Ox O2 Delivery O2 Flow Rate FiO2 12/25/18 04:00 92 Room Air 12/25/18 03:58 98.6 89 20 154/80 (104) 12/24/18 11:26 2.0 Intake and Output 12/25/18 07:02 Intake Total 1534 ml Output Total 4290 ml Balance -2756 ml Intake Oral 50 ml IV Total 1484 ml Output Urine Total 2500 ml Stool Total 1725 ml Drainage Total 65 ml General Appearance: Alert, Awake, No Acute Distress, Afebrile GI: Other (Soft, appropriate postop TTP, wound is clean and dry. Rest of incision is healing well without erythema or drainage.) Extremities: Warm, Perfused Result Diagram: 12/25/1851412/25/18514 Monitor Interpretation: Normal Sinus Rhythm Assessment and Plan Problems: (1) Diverticulitis Status: Acute Assessment & Plan: no obstruction on ct yesterday. pt now has ileus or sbo secondary to diverticulitis. plan: iv abx, ivf, ngt, npo, serial exams/labs/xrays. sbo will likely resolve with treatment of diverticulitis; however, we did discuss the possibility of surgery. 12/16/2018 Cont bowel rest and IV antibiotics for acute sigmoid diverticulitis. 12/17/2018 slow improvement, cont care plan as above. Repeat labs in am. 12/18/18: Decreasing abdominal pain, benign abdominal exam, WBC down this morning, no fevers. Continue current abx regimen for uncomplicated diverticulitis. 12/19/18: Improving. WBC same as yesterday at 16K but down from 2 days ago, will continue follow. Afebrile and VSS. Continue current abx regimen. 12/20/18: Abdominal exam is benign, still somewhat distended. WBC persistently elevated at 16K. Will repeat abdominal/pelvis CT with IV contrast today. Pt on sips of clears and tolerating it. Advised to continue moderating intake until flatus amount improves. Continue PPI, lovenox for prophylaxis. Continue IV abx until tolerating regular diet. 12/23/18: POD#2 s/p ex-lap with Gumaro's procedure, appendectomy, bladder repair by Dr. Espinoza (please refer to his op note and daily progress notes for details over the last 3 days). Pt seems to be doing well. WBC trending down, will follow. H/H down, she had some bleeding from her laparotomy wound that Dr. Espinoza opened and applied hemostatic agents yesterday. Will transfuse 2 Units pRBC and follow H/H. Will hold off on blood thinners until tomorrow and then restart if hemostatic. Continue PPI. OOB to chair and ambulate qid. PT/OT to evaluate and treat. Start TPN today as she hasn't eaten for over a week. Will start ice chips today. Will transfer to Med/Surg. 12/24/18: POD#3. Doing well. Start wound care. Stoma teaching. Continue current diet until more gas output from stoma. Continue TPN. Ambulation. Voltaren for back pain. WBC up to 26K today, will follow this; no fevers or tachycardia. H/H responded to 2Units pRBC, follow. Aggressive pulmonary hygiene, IS, ambulation, PT/OT, restart lovenox, continue PPI. 12/25/18: POD#4. Doing well. Start clear diet today. Stoma teaching. Continue wound care. Continue TPN until tolerating regular diet. Ambulation, PT/OT, lovenox, PPI, pulmonary hygiene. WBC coming down, 23K this morning, will follow. H/H stable. Will give lasix for edema and volume overload, will give concurrent potassium. Follow electrolytes. (2) SBO (small bowel obstruction) Status: Resolved Assessment & Plan: 12/16/18 Pt required NGT decompression with high outputs over past 24 hours. Cont to LIS. KUB noted. Etiology indeterminate, reactive ileus vs mechanical sbo. Will consider SBFT if no improvement next 24 hours. 12/17/2018: NGT output less past 24 hours. Cont NGT until improved bowel function. Gentle [place] cathartics given her sigmoid inflammation per pt request. 12/18/18: Continuing decreasing NG tube output. Continue NG tube decompression and bowel rest and will await for signs of improved bowel function (flatus, less bloating, etc). 12/19/18: No flatus yet and KUB still with dilated small bowel without improvement when compared to 3 days ago. Will get SBFT today. Continue NG tube decompression, bowel rest, IV fluids, etc. If no improvement by tomorrow, will have PICC line placed and start TPN. 12/20/18: SBFT with gastrograffin to colon rapidly, no obstruction. Patient continues to pass contrast. SB dilation c/w ileus; not obstruction. Continue slow PO intake. 12/23/18: SBO due to perforated diverticulitis with phlegmon, relieved by surgery 2 days ago. (3) Anemia Status: Acute Assessment & Plan: 12/23/18: Postop anemia from acute blood loss and hemodilution. Transfuse 2 Units pRBC today and follow H/H. Condition Stable. Time Spent: < 30 min Exam Sepsis Risk: No Definite Risk Problem Qualifiers (1) Anemia: Anemia type: other cause Other causes of anemia: other cause, not classified Qualified Codes: D64.89 - Other specified anemias VERNELL HERNANDEZ MD Dec 25, 2018 07:21
[2018-12-25] MEDS: KCL (*) 20 MEQ/100 ML PREMIX 100 ML IV SCH ×2 (07:36→10:33)
--- NOTE | 2018-12-25 08:10 | Hospitalist Progress Note ---
Subjective Progress Notes Subjective She reports some LE edema. She has been ambulating. Some gas in ostomy bag. Physical Exam Vital Signs Date Time Temp Pulse Resp B/P (MAP) Pulse Ox O2 Delivery O2 Flow Rate FiO2 12/25/18 04:00 92 Room Air 12/25/18 03:58 98.6 89 20 154/80 (104) 12/24/18 11:26 2.0 Intake and Output 12/25/18 07:02 Intake Total 1534 ml Output Total 4290 ml Balance -2756 ml Intake Oral 50 ml IV Total 1484 ml Output Urine Total 2500 ml Stool Total 1725 ml Drainage Total 65 ml General Appearance: Alert, Awake Extremities: Warm, Perfused, Edema Psych: Alert & Oriented X3 Result Diagram: 12/25/1851412/25/18514 Assessment and Plan Problems: (1) Diverticulitis Status: Acute Assessment & Plan: Her initial CT scan showed diverticulitis. She was placed on Zosyn, and her WBC was improving. A subsequent CT scan showed abscess formation. She underwent extensive surgery on 12/[address] Espinoza (see surgery notes for details). Surgery (Dr. Moreno) managing. Hgb/Hct dropped post-op. She was given 2 units PRBC on 12/23/18. She is on TPN and Dr. Moreno has now started clear liquids. Will continue IV Zosyn and metronidazole. Monitor closely. (2) Ileus Assessment & Plan: Suspect most likely ileus (vs. SBO). She had dilated loops of small bowel on KUB. CT showed abscess formation which was the likely culprit. She had surgical correction as noted above. Improved (3) HTN (hypertension) Status: Chronic Assessment & Plan: She is on chronic treatment with Amlodipine. Currently being held. BPs have been modestly elevated. Will continue to monitor. (4) Asthma Status: Chronic Assessment & Plan: Continue Albuterol and Dulera. (5) Hypothyroidism Status: Chronic Assessment & Plan: She is currently Levothyroxine 25mcg IV daily. Her usual oral dose is 50mcg daily. If she tolerates clear liquids will restart her oral dose tomorrow. (6) Pulmonary nodule Assessment & Plan: Her CT scan did show pulmonary nodules and she does have a remote history of smoking. A follow up CT scan is recommended in 3 months. (7) Hypokalemia Status: Acute Assessment & Plan: Resolved. Monitor. She has K+ in TPN. Exam Sepsis Risk: No Definite Risk Problem Qualifiers (1) HTN (hypertension): Hypertension type: essential hypertension Qualified Codes: I10 - Essential (primary) hypertension ELLIE OLSON MD Dec 25, 2018 08:10
[2018-12-25] MEDS: PANTOPRAZOLE SOD 40 MG IV VIAL IVP SCH (09:02)
[2018-12-25] MEDS: KCL/D1/2NS 20 MEQ 1000 ML 1,000 ML IV PRN (09:03)
[2018-12-25] MEDS: ENOXAPARIN 40 MG/0.4ML SYR SC SCH (09:03)
[2018-12-25] MEDS ORDERED: LEVOTHYROXINE SOD 100 MCG VIAL IVP ONE (09:55)
[2018-12-25 11:11] VITALS: BP 158/84
--- NOTE | 2018-12-25 12:09 | NUR ---
Occupational Therapy Impression Skilled OT goals met. Pt declines further needs or concerns to address with OT at this time. Reports spouse will assist with ADLs/IADLs as needed. Pt agreeable to discharge from skilled OT services. Occupational Therapy Goals 1) Pt will be Modified Independent UB/LB dressing. 2) Pt will be Independent grooming standing. Patient's Goal
--- NOTE | 2018-12-25 15:12 | NUR ---
Physical Therapy Impression Pt addressed splinting techniques with coughing for protection of incision line. Pt demos improved strength with sit to/from stand transfers and CG educated on safety skills to assist as needed for mobility. Pt then transferred to bed for stoma teaching and CG trng with ostomy skin barrier and pouch change. Pt currently utilizing head of bed raised and assist from CG to complete supine to/from sit transfers. Pt encouraged to work on log roll technique with head of bed flat during tomorrow's PT session. Pt initially apprehensive today, as she indicates that the first time she attempted this technique is when her abdominal incision dehisced somewhat and began to bleed. Pt participated in skin barrier change and held back dressing to maintain a clean wound line while observed and assisted with the stoma care, cleaning and skin barrier change. Pt is agreeable to emptying bag with assistance of nursing as needed and would like to participate in the next wafer change when needed. Pt would benefit from [facility] services to assist with further reinforcement of ostomy care and consistency with skin barrier change as well as wound care for midline incision with small area dehisced. PT to address further trng with log roll technique to assist in minimizing risk for further dehiscence as well while pt is still admitted. Physical Therapy Goals 1. SBA bed mobility vai log roll. 2. SBA transfers. 3. SBA gait x 150' with appropriate assistive device. 4. Ascend/descend 4 stairs with 1 rail SBA. Patient's Goals
[2018-12-25 16:07] VITALS: BP 170/84
[2018-12-25] MEDS: FAT EMULSION 20% 250 ML BAG 250 ML IVPB SCH (16:15)
[2018-12-25] MEDS: KETOROLAC 30 MG/ML VIAL IVP PRN ×2 (16:15→22:30)
[2018-12-25 18:57] VITALS: BP 160/80
[2018-12-25 23:26] VITALS: BP 152/73
[2018-12-26] MEDS: metroNIDAZOLE* 500MG/100ML BAG 100 ML IVPB SCH ×3 (00:21→17:03)
[2018-12-26 03:12] VITALS: BP 164/82
[2018-12-26] MEDS: PIPERACILLIN/TAZO*3.375GM VIAL 3.375 GM in NS(*) 0.9% 100 ML MINI-BAG 100 ML IVPB SCH ×4 (04:41→22:45)
[2018-12-26] MEDS: KETOROLAC 30 MG/ML VIAL IVP PRN (04:42)
[2018-12-26] MEDS: ACETAMINOPHEN(*)1000 MG/100 ML 100 ML IVPB SCH (05:30)
[2018-12-26] MEDS: MOMETASONE/FORMOT 200MCG/5 MCG IH SCH ×2 (05:31→17:11)
[2018-12-26 06:04] LABS: PLATELET COUNT, AUTOMATED 444 K/uL (150-450)
[2018-12-26] MEDS: LEVOTHYROXINE SOD 0.05 MG TAB PO SCH (06:09)
[2018-12-26 07:30] VITALS: BP 169/79
[2018-12-26] MEDS ORDERED: 1: INSULIN HUM REG 100 UN/ML 3 ML 10 UNIT, MULTIVITAMINS(*) 10 ML VIAL 10 ML, TRACE META IV SCH ×2 (08:00)
[2018-12-26] MEDS ORDERED: FUROSEMIDE 40 MG/4 ML VIAL IVP ONE (08:05)
[2018-12-26] MEDS ORDERED: ACETAMINOPHEN 325 MG TAB PO PRN (08:05)
[2018-12-26] MEDS ORDERED: IBUPROFEN 200 MG TAB PO PRN (08:05)
[2018-12-26] MEDS ORDERED: KCL (*) 20 MEQ/100 ML PREMIX 100 ML IV SCH ×2 (08:05→13:00)
[2018-12-26] MEDS: PANTOPRAZOLE SOD 40 MG TABEC PO SCH (08:39)
[2018-12-26] MEDS: ENOXAPARIN 40 MG/0.4ML SYR SC SCH (08:40)
--- NOTE | 2018-12-26 09:36 | General Surgery Progress Note ---
Subjective Progress Notes Subjective No complaints this morning. Passing flatus and stool via stoma. Not much pain. Tolerating clear diet. No N/V. Physical Exam Vital Signs Date Time Temp Pulse Resp B/P (MAP) Pulse Ox O2 Delivery O2 Flow Rate FiO2 12/26/18 07:42 92 Room Air 12/26/18 07:30 98.3 92 16 169/79 (109) 12/24/18 11:26 2.0 Intake and Output 12/26/18 07:02 Intake Total 2206 ml Output Total 5310 ml Balance -3104 ml Intake Oral 680 ml IV Total 1526 ml Output Urine Total 3000 ml Stool Total 2275 ml Drainage Total 35 ml General Appearance: Alert, Awake, No Acute Distress, Afebrile GI: Other (Soft, appropriate postop TTP, midline incision appears to be healing without problems. Open wound portion appears to be clean and dry. Stoma is pink and functional. LORENZO drains with serosanguinous drainage.) Extremities: Warm, Perfused Result Diagram: 12/26/18 0537 12/26/18 0537 Assessment and Plan Problems: (1) Diverticulitis Status: Resolved Assessment & Plan: no obstruction on ct yesterday. pt now has ileus or sbo secondary to diverticulitis. plan: iv abx, ivf, ngt, npo, serial exams/labs/xrays. sbo will likely resolve with treatment of diverticulitis; however, we did discuss the possibility of surgery. 12/16/2018 Cont bowel rest and IV antibiotics for acute sigmoid diverticulitis. 12/17/2018 slow improvement, cont care plan as above. Repeat labs in am. 12/18/18: Decreasing abdominal pain, benign abdominal exam, WBC down this morning, no fevers. Continue current abx regimen for uncomplicated diverticulitis. 12/19/18: Improving. WBC same as yesterday at 16K but down from 2 days ago, will continue follow. Afebrile and VSS. Continue current abx regimen. 12/20/18: Abdominal exam is benign, still somewhat distended. WBC persistently elevated at 16K. Will repeat abdominal/pelvis CT with IV contrast today. Pt on sips of clears and tolerating it. Advised to continue moderating intake until flatus amount improves. Continue PPI, lovenox for prophylaxis. Continue IV abx until tolerating regular diet. 12/23/18: POD#2 s/p ex-lap with Gumaro's procedure, appendectomy, bladder repair by Dr. Espinoza (please refer to his op note and daily progress notes for details over the last 3 days). Pt seems to be doing well. WBC trending down, will follow. H/H down, she had some bleeding from her laparotomy wound that Dr. Espinoza opened and applied hemostatic agents yesterday. Will transfuse 2 Units pRBC and follow H/H. Will hold off on blood thinners until tomorrow and then restart if hemostatic. Continue PPI. OOB to chair and ambulate qid. PT/OT to evaluate and treat. Start TPN today as she hasn't eaten for over a week. Will start ice chips today. Will transfer to Med/Surg. 12/24/18: POD#3. Doing well. Start wound care. Stoma teaching. Continue current diet until more gas output from stoma. Continue TPN. Ambulation. Voltaren for back pain. WBC up to 26K today, will follow this; no fevers or tachycardia. H/H responded to 2Units pRBC, follow. Aggressive pulmonary hygiene, IS, ambulation, PT/OT, restart lovenox, continue PPI. 12/25/18: POD#4. Doing well. Start clear diet today. Stoma teaching. Continue wound care. Continue TPN until tolerating regular diet. Ambulation, PT/OT, lovenox, PPI, pulmonary hygiene. WBC coming down, 23K this morning, will follow. H/H stable. Will give lasix for edema and volume overload, will give concurrent potassium. Follow electrolytes. 12/26/18: POD#5. Doing well. Will start regular diet today. Continue TPN until tolerating diet. Continue stoma teaching. Ambulation, PT/OT, lovenox, PPI, pulmonary hygiene. WBC continues to trend down, will follow. H/H down a little, doubt bleeding, follow. Will give another round of lasix and potassium today. COntinue to follow this. (2) SBO (small bowel obstruction) Status: Resolved Assessment & Plan: 12/16/18 Pt required NGT decompression with high outputs over past 24 hours. Cont to LIS. KUB noted. Etiology indeterminate, reactive ileus vs mechanical sbo. Will consider SBFT if no improvement next 24 hours. 12/17/2018: NGT output less past 24 hours. Cont NGT until improved bowel function. Gentle [place] cathartics given her sigmoid inflammation per pt request. 12/18/18: Continuing decreasing NG tube output. Continue NG tube decompression and bowel rest and will await for signs of improved bowel function (flatus, less bloating, etc). 12/19/18: No flatus yet and KUB still with dilated small bowel without improvement when compared to 3 days ago. Will get SBFT today. Continue NG tube decompression, bowel rest, IV fluids, etc. If no improvement by tomorrow, will have PICC line placed and start TPN. 12/20/18: SBFT with gastrograffin to colon rapidly, no obstruction. Patient continues to pass contrast. SB dilation c/w ileus; not obstruction. Continue slow PO intake. 12/23/18: SBO due to perforated diverticulitis with phlegmon, relieved by surgery 2 days ago. (3) Anemia Status: Acute Assessment & Plan: 12/23/18: Postop anemia from acute blood loss and hemodilution. Transfuse 2 Units pRBC today and follow H/H. Condition Stable. Time Spent: < 30 min Exam Sepsis Risk: No Definite Risk Problem Qualifiers (1) Anemia: Anemia type: other cause Other causes of anemia: other cause, not classified Qualified Codes: D64.89 - Other specified anemias VERNELL HERNANDEZ MD Dec 26, 2018 09:36
--- NOTE | 2018-12-26 10:16 | NUR ---
Physical Therapy Impression Pt progressing well towards functional goals. Amanda for transfers and ambulation x500' with RW. Pt slightly dyspneic with ambulation, but with good tolerance overall. PT instruction for log roll technique with recommendation to splint abdominal incision with transition from sit to supine. Pt completed sit<>supine log roll with improved tolerance and increased confidence reported. Pt reports that she would like to practice stair training prior to d/c. Physical Therapy Goals 1. SBA bed mobility vai log roll. 2. SBA transfers. 3. SBA gait x 150' with appropriate assistive device. 4. Ascend/descend 4 stairs with 1 rail SBA. Patient's Goals
[2018-12-26] MEDS ORDERED: NS(*) 0.9% 500 ML BAG 500 ML ONE (12:07)
--- NOTE | 2018-12-26 13:32 | Hospitalist Progress Note ---
Subjective Progress Notes Subjective JEMAL overnight, advancing diet cautiously, tolerating well thus far. Patient Complains of: Gastrointestinal: No Nausea, No Vomiting Physical Exam Vital Signs Date Time Temp Pulse Resp B/P (MAP) Pulse Ox O2 Delivery O2 Flow Rate FiO2 12/26/18 07:42 92 Room Air 12/26/18 07:30 98.3 92 16 169/79 (109) 12/24/18 11:26 2.0 Intake and Output 12/26/18 07:02 Intake Total 2206 ml Output Total 5310 ml Balance -3104 ml Intake Oral 680 ml IV Total 1526 ml Output Urine Total 3000 ml Stool Total 2275 ml Drainage Total 35 ml General Appearance: Alert, Awake, No Acute Distress, Afebrile Cardiovascular: Normal Rhythm & Peripheral Pulses Respiratory: No Respiratory Distress GI: Soft and Non-Tender (+ colostomy) Extremities: Soft and Non Tender, Warm, Pulses, Perfused Result Diagram: 12/26/18 0537 12/26/18 1259 Assessment and Plan Problems: (1) Diverticulitis Status: Resolved Assessment & Plan: Her initial CT scan showed diverticulitis. She was placed on Zosyn, and her WBC was improving. A subsequent CT scan showed abscess formation. She underwent extensive surgery on 12/[address] Espinoza (see surgery notes for details). Surgery (Dr. Moreno) managing. Hgb/Hct dropped post-op. She was given 2 units PRBC on 12/23/18. She is on TPN and Dr. Moreno has now started clear liquids. Will continue IV Zosyn and metronidazole. Monitor closely. (2) Ileus Assessment & Plan: Secondary to ileus. She had dilated loops of small bowel on KUB. Resolved. (3) HTN (hypertension) Status: Chronic Assessment & Plan: She is on chronic treatment with Amlodipine. (4) Asthma Status: Chronic Assessment & Plan: Continue Albuterol and Dulera. (5) Hypothyroidism Status: Chronic Assessment & Plan: She is currently Levothyroxine 50mcg daily. (6) Pulmonary nodule Assessment & Plan: Her CT scan did show pulmonary nodules and she does have a remote history of smoking. A follow up CT scan is recommended in 3 months. (7) Hypokalemia Status: Acute Assessment & Plan: Resolved. Exam Sepsis Risk: No Definite Risk Problem Qualifiers (1) HTN (hypertension): Hypertension type: essential hypertension Qualified Codes: I10 - Essential (primary) hypertension FOREIGN HOLDER DO Dec 26, 2018 13:32
--- NOTE | 2018-12-26 14:25 | Medical Nutrition Therapy ---
Nutrition Anthropometrics Height (Inches): 67.50 Height (Calculated Centimeters: 171.367715 Weight (Pounds): 244 Weight (Calculated Kilograms): 110.903 BMI: 32.4 Puneet Nutrition Score: Adequate Puneet Nutrition Risk Score: 18 Dietary Referral Nutrition Risk Factors: Nutrition Risk Comment: Physical Findings Physical Appearance: Obese BMI 30-39 Skin Appearance Skin Appearance: Edema Edema Location Modifier: Both Edema Location: Lower Extremity Type of Edema: Degree of Edema: 3+ Gastrointestinal Symptoms GI Symtoms: Change in Bowel Pattern Tube Present: NG Bowel Sounds: Recent Bowel Pattern: Diarrhea Stool Characteristics: Nutritional Diagnosis Nutritional Risk Acuity 1: NPO/CL > 3 days, GI Obstruction Nutritional Acuity: 1-High Nutrition Diagnosis: Altered GI Function Nutrition Etiology: Psychological Issues Nutrition Problem/Etiology/Sym: AEB dx ileus or sbo secondary to diverticulitis. Energy Requirement: 2021 (MSJ(AF 1.3)) Protein Requirement: 95 (.8gm-kcal) Fluid Requirement: 2021 (1mL/kcal) Diet Type: NPO (Nothing by Mouth) Nutrition Intervention: Nutrition support, Incr diet as tolerated Additional Diet Restrictions: PROVIDE CLEAR LIQUID NUTR SUPPLEMENT WHEN ON SHIRLEY AR LIQUID DIET Nutritional Support Current Enteral / Parental: TPN Rate: 80 mL/hr x 24hrs Clinimix and Lipids at 20.8mL/hr x 12hrs Current Duration: 24 Current Calories: 1690 Current Protein: 96 Current Lipids Calories: 500 Total Current Calories: 2190 (Clinimix + Lipids) Recommended Enteral / Parental: TPN Recommended Rate: Final rate 80ml/hr D20%, AA5% + Ixpwng15% Recommended Goal Rate: 80mL/hr (Start at 30mL/hr advance by 10mL every 8 hours to goal rate) Recommended Duration: 24 Recommended Calories: 1690 Recommended Protein: 96 Recommended Lipids Calories: 332 Total Recommended Calories: 2022 Nutrition Monitoring & Eval RD Patient Assessment Time: [address] Assessment Type: RD Re-Assessment Patient Nutrition Acuity: 1-High Follow Up Date: Dec 27, 2018 Nutritional Comment: 12/16 Pt admitted with ileus or SBO secondary to diverticulitis. Pt currently NPO. Alb 2.9 pt has nonpitting edema BLE. No ht obtained. Will cont to monitor. BK / Pt 5th day NPO. Recommend nutrtional support if diet not advanced. 75ml/hr TPN plus lipids would meet nutritional needs. K+ 3.4, pt is recieving K+ supplement. Alb declined to 3. Pt has 2+ edema BLE. Nursing reporting flatus present and hypoactive bowel sounds. Will cont to monitor. ANGIE 12/22 NPO day 8. Discussed with Dr Espinoza who stated he will start TPN 12/23. TPN at final rate of 75ml/hr plus lipids should meet nutritonal needs. alblow at 2.1, Hgb low at 10.6, Hct low at 31.1. Will cont to monitor. ANGIE 12/23/18-Reviewed hx, discussed pt with fellow RD. Recalculated energy and protein needs. Recommend start TPN at 30mL/hr and advance by 10mL every 8 hours to goal rate of 80mL/hr. Run Lipids IVPB at 14mL/hr for 12 hrs. At goal rate TPN will provide 2022 kcal with (1306 kcal (384g D20%), 384 kcal from AA5%(96 g), and 336 kcal Lipid20%(33.6g). TPN will meet 100% of estimated energy and protein needs. Will continue to monitor electrolytes, BG, weight and adjust TPN as needed.LEVI 12/26/18: Discussed pt at Nutrition Support Rounds. Pt given doses of lasix 12/25. Fluid balance -3104 from 12/25 to 12/26. Still has 3+ pitting edema BLE. BUN and Cre WNR. K+ was 3.8 this am, most recent was 3.7. TPN will provide ~58 mEq of K+. Recieving 40 mEq from K-rider for a total of 100 mEQ of K+ in 24 hrs. Recommend continue current TPN regimen provides 108% of estimated calorie needs and 100% of estimated protein needs. Will continue to follow and monitor electrolytes. Recommend adding Mag and Phos lab and triglycerides weekly.CHEYENNE HAQ Dec 26, 2018 14:25
[2018-12-26 16:22] VITALS: BP 161/73
[2018-12-26] MEDS: FAT EMULSION 20% 250 ML BAG 250 ML IVPB SCH (16:25)
[2018-12-26] MEDS: traMADol 50 MG TAB PO PRN ×2 (16:34→22:45)
[2018-12-26] MEDS: MORPHINE 2 MG/ML SYR IVP PRN (17:11)
[2018-12-26 18:20] VITALS: BP 158/74
[2018-12-26] MEDS ORDERED: INS HUM REG* 100 U/ML(ER ONLY) 20 UNIT, MULTIVITAMINS(*) 10 ML VIAL 10 ML, TRACE METALS... IV SCH (21:00)
[2018-12-27] VITALS (7 sets, daily range): BP systolic 145–163; BP diastolic 72–87
[2018-12-27] MEDS: metroNIDAZOLE* 500MG/100ML BAG 100 ML IVPB SCH ×3 (00:18→17:19)
[2018-12-27] MEDS: traMADol 50 MG TAB PO PRN ×4 (02:56→21:00)
[2018-12-27] MEDS: PIPERACILLIN/TAZO*3.375GM VIAL 3.375 GM in NS(*) 0.9% 100 ML MINI-BAG 100 ML IVPB SCH ×4 (04:23→22:20)
[2018-12-27] MEDS: MOMETASONE/FORMOT 200MCG/5 MCG IH SCH ×2 (05:10→17:21)
[2018-12-27 05:39] LABS: PLATELET COUNT, AUTOMATED 443 K/uL (150-450)
[2018-12-27] MEDS: LEVOTHYROXINE SOD 0.05 MG TAB PO SCH (05:45)
[2018-12-27] MEDS: PANTOPRAZOLE SOD 40 MG TABEC PO SCH (08:34)
[2018-12-27] MEDS: ENOXAPARIN 40 MG/0.4ML SYR SC SCH (08:35)
--- NOTE | 2018-12-27 08:58 | General Surgery Progress Note ---
Subjective Progress Notes Subjective No complaints this morning. Tolerating diet. Had some soreness after I removed the drains last night. Physical Exam Vital Signs Date Time Temp Pulse Resp B/P (MAP) Pulse Ox O2 Delivery O2 Flow Rate FiO2 12/27/18 07:30 92 Room Air 12/27/18 07:14 98.7 107 16 151/75 (100) 12/24/18 11:26 2.0 Intake and Output 12/27/18 07:02 Intake Total 2302 ml Output Total 5348 ml Balance -3046 ml Intake Oral 936 ml IV Total 1366 ml Output Urine Total 4000 ml Stool Total 1330 ml Drainage Total 18 ml General Appearance: Alert, Awake, No Acute Distress, Afebrile GI: Other (Soft, appropriate postop TTP, stoma is pink and functional. Dressing not changed by me this morning since she was eating breakfast at the time of rounds.) Extremities: Warm, Perfused Psych: Alert & Oriented X3, Appropriate Mood & Affect Result Diagram: 12/27/1851912/27/18519 Assessment and Plan Problems: (1) Diverticulitis Status: Resolved Assessment & Plan: no obstruction on ct yesterday. pt now has ileus or sbo secondary to diverticulitis. plan: iv abx, ivf, ngt, npo, serial exams/labs/xrays. sbo will likely resolve with treatment of diverticulitis; however, we did discuss the possibility of surgery. 12/16/2018 Cont bowel rest and IV antibiotics for acute sigmoid diverticulitis. 12/17/2018 slow improvement, cont care plan as above. Repeat labs in am. 12/18/18: Decreasing abdominal pain, benign abdominal exam, WBC down this morning, no fevers. Continue current abx regimen for uncomplicated diverticulitis. 12/19/18: Improving. WBC same as yesterday at 16K but down from 2 days ago, will continue follow. Afebrile and VSS. Continue current abx regimen. 12/20/18: Abdominal exam is benign, still somewhat distended. WBC persistently elevated at 16K. Will repeat abdominal/pelvis CT with IV contrast today. Pt on sips of clears and tolerating it. Advised to continue moderating intake until flatus amount improves. Continue PPI, lovenox for prophylaxis. Continue IV abx until tolerating regular diet. 12/23/18: POD#2 s/p ex-lap with Gumaro's procedure, appendectomy, bladder repair by Dr. Espinoza (please refer to his op note and daily progress notes for details over the last 3 days). Pt seems to be doing well. WBC trending down, will follow. H/H down, she had some bleeding from her laparotomy wound that Dr. Espinoza opened and applied hemostatic agents yesterday. Will transfuse 2 Units pRBC and follow H/H. Will hold off on blood thinners until tomorrow and then restart if hemostatic. Continue PPI. OOB to chair and ambulate qid. PT/OT to evaluate and treat. Start TPN today as she hasn't eaten for over a week. Will start ice chips today. Will transfer to Med/Surg. 12/24/18: POD#3. Doing well. Start wound care. Stoma teaching. Continue current diet until more gas output from stoma. Continue TPN. Ambulation. V oltaren for back pain. WBC up to 26K today, will follow this; no fevers or tachycardia. H/H responded to 2Units pRBC, follow. Aggressive pulmonary hygiene, IS, ambulation, PT/OT, restart lovenox, continue PPI. 12/25/18: POD#4. Doing well. Start clear diet today. Stoma teaching. Continue wound care. Continue TPN until tolerating regular diet. Ambulation, PT/OT, lovenox, PPI, pulmonary hygiene. WBC coming down, 23K this morning, will follow. H/H stable. Will give lasix for edema and volume overload, will give concurrent potassium. Follow electrolytes. 12/26/18: POD#5. Doing well. Will start regular diet today. Continue TPN until tolerating diet. Continue stoma teaching. Ambulation, PT/OT, lovenox, PPI, pulmonary hygiene. WBC continues to trend down, will follow. H/H down a little, doubt bleeding, follow. Will give another round of lasix and potassium today. COntinue to follow this. 12/27/18: POD#6. Doing well. WBC SLOWLY coming down, will follow. H/H down this morning as well, follow, no other signs of hemorrhage. Tolerating regular diet. TPN to half rate today. Continue stoma teaching. Ambulation, PT/OT, lovenox, pulmonary hygiene, etc. Will give another round of lasix and potassium today. Will continue to follow electrolytes. Continue wound care. Keep styles in to keep bladder decompressed due to bladder repair. Dr. Lopez with Urology will manage removal of Styles. (2) SBO (small bowel obstruction) Status: Resolved Assessment & Plan: 12/16/18 Pt required NGT decompression with high outputs over past 24 hours. Cont to LIS. KUB noted. Etiology indeterminate, reactive ileus vs mechanical sbo. Will consider SBFT if no improvement next 24 hours. 12/17/2018: NGT output less past 24 hours. Cont NGT until improved bowel function. Gentle [place] cathartics given her sigmoid inflammation per pt request. 12/18/18: Continuing decreasing NG tube output. Continue NG tube decompression and bowel rest and will await for signs of improved bowel function (flatus, less bloating, etc). 12/19/18: No flatus yet and KUB still with dilated small bowel without improvement when compared to 3 days ago. Will get SBFT today. Continue NG tube decompression, bowel rest, IV fluids, etc. If no improvement by tomorrow, will have PICC line placed and start TPN. 12/20/18: SBFT with gastrograffin to colon rapidly, no obstruction. Patient continues to pass contrast. SB dilation c/w ileus; not obstruction. Continue slow PO intake. 12/23/18: SBO due to perforated diverticulitis with phlegmon, relieved by surgery 2 days ago. (3) Anemia Status: Acute Assessment & Plan: 12/23/18: Postop anemia from acute blood loss and hem odilution. Transfuse 2 Units pRBC today and follow H/H. (4) S/P bladder repair Status: Acute Assessment & Plan: Styles decompression of bladder for at least 2 weeks, being managed by Dr. Lopez with Urology. Condition Stable. Time Spent: < 30 min Exam Sepsis Risk: Sepsis Risk Problem Qualifiers (1) Anemia: Anemia type: other cause Other causes of anemia: other cause, not classified Qualified Codes: D64.89 - Other specified anemias VERNELL HERNANDEZ MD Dec 27, 2018 08:58
--- NOTE | 2018-12-27 12:02 | Hospitalist Progress Note ---
Subjective Progress Notes Subjective Per nursing staff, the patient has not been sleeping well and finally fell asleep this am. She complained to nursing staff this am that she just felt tired. Physical Exam Vital Signs Date Time Temp Pulse Resp B/P (MAP) Pulse Ox O2 Delivery O2 Flow Rate FiO2 12/27/18 07:30 92 Room Air 12/27/18 07:14 98.7 107 16 151/75 (100) 12/24/18 11:26 2.0 Intake and Output 12/27/18 07:02 Intake Total 2302 ml Output Total 5348 ml Balance -3046 ml Intake Oral 936 ml IV Total 1366 ml Output Urine Total 4000 ml Stool Total 1330 ml Drainage Total 18 ml General Appearance: Other (Sleeping.) Result Diagram: 12/27/1851912/27/18519 Assessment and Plan Problems: (1) Diverticulitis Status: Resolved Assessment & Plan: Her initial CT scan showed diverticulitis. She was placed on Zosyn, and her WBC was improving. A subsequent CT scan showed abscess formation. She underwent extensive surgery on 12/[address] Espinoza (see surgery notes for details). General surgery (Dr. Moreno) is managing. Hgb/Hct dropped post-op. She was given 2 units PRBC on 12/23/18.Dr. Moreno has now advanced her diet and has starting weaning her TPN. She remains on IV Zosyn and metronidazole. Monitor closely. (2) Ileus Assessment & Plan: She had dilated loops of small bowel on KUB. Resolved. (3) HTN (hypertension) Status: Chronic Assessment & Plan: She is on chronic treatment with Amlodipine. (4) Asthma Status: Chronic Assessment & Plan: Continue Albuterol and Dulera. (5) Hypothyroidism Status: Chronic Assessment & Plan: She is currently Levothyroxine 50mcg daily. (6) Pulmonary nodule Assessment & Plan: Her CT scan did show pulmonary nodules and she does have a remote history of smoking. A follow up CT scan is recommended in 3 months. (7) Hypokalemia Status: Acute Assessment & Plan: Resolved. Time Spent on Plan of Care: < 30 min Exam Sepsis Risk: Sepsis Risk Problem Qualifiers (1) HTN (hypertension): Hypertension type: essential hypertension Qualified Codes: I10 - Essential (primary) hypertension SIRISHA OLSON MD Dec 27, 2018 12:02
[2018-12-27] MEDS: HYDROCHLOROTHIAZIDE 25 MG TAB PO SCH (12:03)
--- NOTE | 2018-12-27 13:13 | Medical Nutrition Therapy ---
Nutrition Anthropometrics Height (Inches): 67.50 Height (Calculated Centimeters: 171.549781 Weight (Pounds): 242 Weight (Calculated Kilograms): 109.769 BMI: 32.4 Puneet Nutrition Score: Adequate Puneet Nutrition Risk Score: 18 Dietary Referral Nutrition Risk Factors: Nutrition Risk Comment: Physical Findings Physical Appearance: Obese BMI 30-39 Skin Appearance Skin Appearance: Edema Edema Location Modifier: Both Edema Location: upper leg Type of Edema: Degree of Edema: 1+ Gastrointestinal Symptoms GI Symtoms: Change in Bowel Pattern Tube Present: NG Bowel Sounds: Recent Bowel Pattern: Diarrhea Stool Characteristics: Nutritional Diagnosis Nutritional Risk Acuity 1: NPO/CL > 3 days, GI Obstruction Nutritional Acuity: 1-High Nutrition Diagnosis: Altered GI Function Nutrition Etiology: Psychological Issues Nutrition Problem/Etiology/Sym: AEB dx ileus or sbo secondary to diverticulitis. Energy Requirement: 2021 (MSJ(AF 1.3)) Protein Requirement: 95 (.8gm-kcal) Fluid Requirement: 2021 (1mL/kcal) Diet Type: NPO (Nothing by Mouth) Nutrition Intervention: Nutrition support, Incr diet as tolerated Additional Diet Restrictions: PROVIDE CLEAR LIQUID NUTR SUPPLEMENT WHEN ON CLEAR LIQUID DIET Nutritional Support Current Enteral / Parental: TPN Rate: 40 mL/hr x 24hrs Clinimix and Lipids at 20.8mL/hr x 12hrs Current Duration: 24 Current Calories: 1343 Current Protein: 38 Current Lipids Calories: 500 Total Current Calories: 1343 (Clinimix + Lipids) Recommended Enteral / Parental: TPN Nutrition Monitoring & Eval RD Patient Assessment Time: [address] Assessment Type: RD Re-Assessment Patient Nutrition Acuity: 1-High Follow Up Date: Dec 27, 2018 Nutritional Comment: 12/16 Pt admitted with ileus or SBO secondary to diverticulitis. Pt currently NPO. Alb 2.9 pt has nonpitting edema BLE. No ht obtained. Will cont to monitor. ANGIE 12/19 Pt 5th day NPO. Recommend nutrtional support if diet not advanced. 75ml/hr TPN plus lipids would meet nutritional needs. K+ 3.4, pt is recieving K+ supplement. Alb declined to 3. Pt has 2+ edema BLE. Nursing reporting flatus present and hypoactive bowel sounds. Will cont to monitor. ANGIE 12/22 NPO day 8. Discussed with Dr Espinoza who stated he will start TPN 12/23. TPN at final rate of 75ml/hr plus lipids should meet nutritonal needs. alblow at 2.1, Hgb low at 10.6, Hct low at 31.1. Will cont to monitor. ANGIE 12/23/18-Reviewed hx, discussed pt with fellow RD. Recalculated energy and protein needs. Recommend start TPN at 30mL/hr and advance by 10mL every 8 hours to goal rate of 80mL/hr. Run Lipids IVPB at 14mL/hr for 12 hrs. At goal rate TPN will provide 2022 kcal with (1306 kcal (384g D20%), 384 kcal from AA5%(96 g), and 336 kcal Lipid20%(33.6g). TPN will meet 100% of estimated energy and protein needs. Will continue to monitor electrolytes, BG, weight and adjust TPN as needed.LEVI 12/26/18: Discussed pt at Nutrition Support Rounds. Pt given doses of lasix 12/25. Fluid balance -3104 from 12/25 to 12/26. Still has 3+ pitting edema BLE. BUN and Cre WNR. K+ was 3.8 this am, most recent was 3.7. TPN will provide ~58 mEq of K+. Recieving 40 mEq from K-rider for a total of 100 mEQ of K+ in 24 hrs. Recommend continue current TPN regimen provides 108% of estimated calorie needs and 100% of estimated protein needs. Will continue to follow and monitor electrolytes. Recommend adding Mag and Phos lab and triglycerides weekly.LEVI 12/27/18-TPN being weaned current rate 40mL/hr and Lipids 20.8mL/hr x 12 hrs. Reviewed K+ was 3.8 this am. BGs WNR. Pt getting ~29 mEq from TPN at rate of 40mL/hr over 24 hrs. Pt recieving HCTZ, edema improving slightly wt still up at 142 lbs. Will continue to monitor TPN.CHEYENNE HAQ Dec 27, 2018 13:13
[2018-12-27] MEDS: MORPHINE 2 MG/ML SYR IVP PRN (14:07)
[2018-12-27] MEDS ORDERED: FUROSEMIDE 40 MG/4 ML VIAL IVP ONE (14:40)
[2018-12-27] MEDS ORDERED: KCL (*) 20 MEQ/100 ML PREMIX 100 ML IV SCH (14:40)
--- NOTE | 2018-12-27 15:25 | NUR ---
Physical Therapy Impression Lengthy session to address importance and technique for log roll in detail with PT demo and pt return demo. Determined more effective assisted splinting technique for pt to be able to cough and blow nose, while attempting to clear secretions without increasing discomfort at L) obliques that when palpated, appear to be rather tense. Pt notes that sitting in W/C is significantly more comfortable than recliner and would like to keep W/C in room to utilize for better posture during dinner later this evening. Pt tolerated gait on carpeting in rehab dept and completed up/down 4 steps with rails and SBA, using a step-to pattern advancing up the strs with R) LE first. Pt would benefit from further practice with true flat bed log roll technique both with nursing and therapy prior to d/c home to ensure proper muscular protection and improved indep. Physical Therapy Goals 1. SBA bed mobility vai log roll. 2. SBA transfers. 3. SBA gait x 150' with appropriate assistive device. 4. Ascend/descend 4 stairs with 1 rail SBA. Patient's Goals
[2018-12-27] MEDS: KCL (*) 20 MEQ/100 ML PREMIX 100 ML IV SCH ×2 (20:06→20:40)
[2018-12-27] MEDS ORDERED: [UNRECOGNIZED DRUG - OTHER] IV SCH (21:00)
[2018-12-27] MEDS ORDERED: MULTIVITAMINS IV SCH (21:00)
[2018-12-27] MEDS ORDERED: INS HUM REG U IV SCH (21:00)
[2018-12-28] MEDS: metroNIDAZOLE* 500MG/100ML BAG 100 ML IVPB SCH ×2 (01:05→09:22)
[2018-12-28] MEDS: traMADol 50 MG TAB PO PRN ×4 (01:12→15:09)
[2018-12-28 02:53] VITALS: BP 153/80
[2018-12-28] MEDS: PIPERACILLIN/TAZO*3.375GM VIAL 3.375 GM in NS(*) 0.9% 100 ML MINI-BAG 100 ML IVPB SCH ×3 (04:11→15:55)
[2018-12-28] MEDS: ONDANSETRON 4 MG/2 ML VIAL IVP PRN (04:11)
[2018-12-28] MEDS: LEVOTHYROXINE SOD 0.05 MG TAB PO SCH (05:32)
[2018-12-28] MEDS: MOMETASONE/FORMOT 200MCG/5 MCG IH SCH (05:34)
[2018-12-28 06:52] LABS: PLATELET COUNT, AUTOMATED 581 K/uL (150-450)
[2018-12-28 07:23] VITALS: BP 142/87
--- NOTE | 2018-12-28 09:05 | General Surgery Progress Note ---
Subjective Progress Notes Subjective feels mild indigestion, stoma + output, pt up in chair Physical Exam Vital Signs Date Time Temp Pulse Resp B/P (MAP) Pulse Ox O2 Delivery O2 Flow Rate FiO2 12/28/18 07:42 97 Nasal Cannula 1.0 12/28/18 07:23 99.1 16 142/87 (105) 12/28/18 02:53 98 l Intake and Output 12/28/18 07:02 Intake Total 3019 ml Output Total 5100 ml Balance -2081 ml Intake Oral 1125 ml IV Total 1894 ml Output Urine Total 5050 ml Emesis 50 ml General Appearance: Alert, Awake, No Acute Distress, Afebrile Neuro: No Gross deficits Cardiovascular: Normal Rhythm & Peripheral Pulses Respiratory: No Respiratory Distress, Clear to Auscultation GI: Soft and Non-Tender, Other (stoma viable/patent; wound with small open area at the superior aspect, no purulent drainage) Musculoskeletal: No Weakness/Pain Extremities: Soft and Non Tender, Warm, Pulses, Perfused, Edema Integumentary: Skin Intact without Lesion / Mass Psych: Alert & Oriented X3, Appropriate Mood & Affect Result Diagram: 12/28/18 0510 12/28/18509 Monitor Interpretation: Normal Sinus Rhythm Assessment and Plan Problems: (1) Diverticulitis Status: Acute Assessment & Plan: no obstruction on ct yesterday. pt now has ileus or sbo secondary to diverticulitis. plan: iv abx, ivf, ngt, npo, serial exams/labs/xrays. sbo will likely resolve with treatment of diverticulitis; however, we did discuss the possibility of surgery. 12/16/2018 Cont bowel rest and IV antibiotics for acute sigmoid diverticulitis. 12/17/2018 slow improvement, cont care plan as above. Repeat labs in am. 12/18/18: Decreasing abdominal pain, benign abdominal exam, WBC down this mornin g, no fevers. Continue current abx regimen for uncomplicated diverticulitis. 12/19/18: Improving. WBC same as yesterday at 16K but down from 2 days ago, will continue follow. Afebrile and VSS. Continue current abx regimen. 12/20/18: Abdominal exam is benign, still somewhat distended. WBC persistently elevated at 16K. Will repeat abdominal/pelvis CT with IV contrast today. Pt on sips of clears and tolerating it. Advised to continue moderating intake until flatus amount improves. Continue PPI, lovenox for prophylaxis. Continue IV abx until tolerating regular diet. 12/23/18: POD#2 s/p ex-lap with Gumaro's procedure, appendectomy, bladder repair by Dr. Espinoza (please refer to his op note and daily progress notes for details over the last 3 days). Pt seems to be doing well. WBC trending down, will follow. H/H down, she had some bleeding from her laparotomy wound that Dr. Espinoza opened and applied hemostatic agents yesterday. Will transfuse 2 Units pRBC and follow H/H. Will hold off on blood thinners until tomorrow and then restart if hemostatic. Continue PPI. OOB to chair and ambulate qid. PT/OT to evaluate and treat. Start TPN today as she hasn't eaten for over a week. Will start ice chips today. Will transfer to Med/Surg. 12/24/18: POD#3. Doing well. Start wound care. Stoma teaching. Continue current diet until more gas output from stoma. Continue TPN. Ambulation. Voltaren for back pain. WBC up to 26K today, will follow this; no fevers or tachycardia. H/H responded to 2Units pRBC, follow. Aggressive pulmonary hygiene, IS, ambulation, PT/OT, restart lovenox, continue PPI. 12/25/18: POD#4. Doing well. Start clear diet today. Stoma teaching. Co ntinue wound care. Continue TPN until tolerating regular diet. Ambulation, PT/OT, lovenox, PPI, pulmonary hygiene. WBC coming down, 23K this morning, will follow. H/H stable. Will give lasix for edema and volume overload, will give concurrent potassium. Follow electrolytes. 12/26/18: POD#5. Doing well. Will start regular diet today. Continue TPN until tolerating diet. Continue stoma teaching. Ambulation, PT/OT, lovenox, PPI, pulmonary hygiene. WBC continues to trend down, will follow. H/H down a little, doubt bleeding, follow. Will give another round of lasix and potassium today. COntinue to follow this. 12/27/18: POD#6. Doing well. WBC SLOWLY coming down, will follow. H/H down this morning as well, follow, no other signs of hemorrhage. Tolerating regular diet. TPN to half rate today. Continue stoma teaching. Ambulation, PT/OT, lovenox, pulmonary hygiene, etc. Will give another round of lasix and potassium today. Will continue to follow electrolytes. Continue wound care. Keep styles in to keep bladder decompressed due to bladder repair. Dr. Lopez with Urology will manage removal of Styles. 12/28/18: POD#7 slow steady progress, though persistently elevated WBC. ABD CT ordered, if an abscess is amenable to percutaneous drainage may need transfer to [facility] or [facility] as IR not available here. (2) SBO (small bowel obstruction) Status: Acute Assessment & Plan: 12/16/18 Pt required NGT decompression with high outputs over past 24 hours. Cont to LIS. KUB noted. Etiology indeterminate, reactive ileus vs mechanical sbo. Will consider SBFT if no improvement next 24 hours. 12/17/2018: NGT output less past 24 hours. Cont NGT until improved bowel function. Gentle [place] cathartics given her sigmoid inflammation per pt request. 12/18/18: Continuing decreasing NG tube output. Continue NG tube decompression and bowel rest and will await for signs of improved bowel function (flatus, less bloating, etc). 12/19/18: No flatus yet and KUB still with dilated small bowel without improvement when compared to 3 days ago. Will get SBFT today. Continue NG tube decompression, bowel rest, IV fluids, etc. If no improvement by tomorrow, will have PICC line placed and start TPN. 12/20/18: SBFT with gastrograffin to colon rapidly, no obstruction. Patient continues to pass contrast. SB dilation c/w ileus; not obstruction. Continue slow PO intake. 12/23/18: SBO due to perforated diverticulitis with phlegmon, relieved by surgery 2 days ago. 12/28/18: partial SBO on ABD CT scan with multiple dilated loops and AFL. Cont minimal PO diet as douglas as long as stoma has output. (3) Anemia Status: Acute Assessment & Plan: 12/23/18: Postop anemia from acute blood loss and hemodilution. Transfuse 2 Units pRBC today and follow H/H. (4) S/P bladder repair Status: Acute Assessment & Plan: Styles decompression of bladder for at least 2 weeks, being managed by Dr. Lopez with Urology. Time Spent: > 30 min Exam Sepsis Risk: Sepsis Risk Problem Qualifiers (1) Anemia: Anemia type: other cause Other causes of anemia: other cause, not classified Qualified Codes: D64.89 - Other specified anemias LUIAS DE LA ROSA MD Dec 28, 2018 09:05
[2018-12-28] MEDS: PANTOPRAZOLE SOD 40 MG TABEC PO SCH (09:22)
[2018-12-28] MEDS: HYDROCHLOROTHIAZIDE 25 MG TAB PO SCH (09:22)
[2018-12-28] MEDS: ENOXAPARIN 40 MG/0.4ML SYR SC SCH (09:23)
--- NOTE | 2018-12-28 09:24 | Hospitalist Progress Note ---
Subjective Progress Notes Subjective This patient was admitted for diverticulitis and required surgery for abscess formations. Patient Complains of: Cardiovascular: No: Chest Pain Respiratory: No: Shortness of Breath Physical Exam Vital Signs Date Time Temp Pulse Resp B/P (MAP) Pulse Ox O2 Delivery O2 Flow Rate FiO2 12/28/18 07:42 97 Nasal Cannula 1.0 12/28/18 07:23 99.1 16 142/87 (105) 12/28/18 02:53 98 Intake and Output 12/28/18 07:02 Intake Total 3019 ml Output Total 5100 ml Balance -2081 ml Intake Oral 1125 ml IV Total 1894 ml Output Urine Total 5050 ml Emesis 50 ml Cardiovascular: Regular Rate and Rhythm Respiratory: Clear to Auscultation Result Diagram: 12/28/1850912/28/18509 Assessment and Plan Problems: (1) Diverticulitis Status: Resolved Assessment & Plan: Her initial CT scan showed diverticulitis. She was placed on Zosyn, and her WBC was improving. A subsequent CT scan showed abscess formation. She underwent extensive surgery on 12/[address] Espinoza (see surgery notes for details). General surgery (Dr. Moreno) is managing. She remains on IV Zosyn and metronidazole. (2) Ileus Assessment & Plan: She had dilated loops of small bowel on KUB. Resolved. (3) HTN (hypertension) Status: Chronic Assessment & Plan: She is on chronic treatment with Amlodipine. (4) Asthma Status: Chronic Assessment & Plan: Continue Albuterol and Dulera. (5) Hypothyroidism Status: Chronic Assessment & Plan: She is on chronic treatment with Levothyroxine. (6) Pulmonary nodule Assessment & Plan: Her CT scan did show pulmonary nodules and she does have a remote history of smoking. A follow up CT scan is recommended in 3 months. (7) Hypokalemia Status: Acute Assessment & Plan: Resolved. (8) Acute blood loss anemia Assessment & Plan: She did require 2 units of red cells on 12/23/18 Exam Sepsis Risk: Sepsis Risk Problem Qualifiers (1) HTN (hypertension): Hypertension type: essential hypertension Qualified Codes: I10 - Essential (primary) hypertension VERNELL MARTINEZ DO Dec 28, 2018 09:24
[2018-12-28 11:40] VITALS: BP 141/94
[2018-12-28] MEDS ORDERED: IOPAMIDOL 76% 100 ML INFUS BTL 100 ML ONE (12:02)
--- NOTE | 2018-12-28 13:39 | RADIOLOGY IMAGING REPORT ---
FACILITY: [facility] [place] PATIENT NAME: Sherron So : 1955 MR: [id number] V: [id number] EXAM DATE: ORDERING PHYSICIAN: LUISA DE LA ROSA TECHNOLOGIST: Location: [facility] Patient: Sherron So : 1955 Visit/Account:[id number] Date of Sevice: 12/28/2018 EXAMINATION: CT abdomen and pelvis without and with IV contrast HISTORY: Abscess? TECHNIQUE: Axial CT images of the abdomen and pelvis were obtained with IV contrast, with coronal a nd sagittal 2D reconstructed images. One of the following dose optimization techniques was utilized in the performance of this exam: Autom ated exposure control; adjustment of the mA and/or kV according to the patient's size; or use of an i terative reconstruction technique. Specific details can be referenced in the facility's radiology C T exam operational policy. Contrast: 75 mL of IV Isovue-370. COMPARISON: 12/20/2018. FINDINGS: Liver: Negative. Gallbladder and bile ducts: Negative. Spleen: Negative. Pancreas: Negative. Adrenal glands: Negative. Kidneys: Negative. No hydronephrosis or urinary calculi. Bowel and peritoneum: Since the prior exam the patient has undergone a segmental sigmoid colonic res ection with a diverting end colostomy along the left abdominal wall. There is mild dilatation of flui d-filled small bowel loops in the mid and upper abdomen with air-fluid levels. No well defined transi tion. The colon is normal in caliber with a small amount of liquid stool and gas. Small peripherally enhancing loculated pockets of fluid and gas in the pelvis may be compatible with persistent or recurrent abscess. There is a fluid pocket in the deep pelvis along the cul-de-sac jil uring 4.8 x 4.1 x 4.7 cm (series 6, image 150), with a linear component extending superiorly and to t he left adjacent to the distal sigmoid colon. There is a second smaller collection in the mid central pelvis measuring 2.3 x 3.4 x 3.5 cm (image 136). There are a few additional smaller fluid pockets in sinuating along the mesentery in the lower abdomen and pelvis. No free intraperitoneal air. Pelvic structures: Brown catheter in the bladder. Hysterectomy. Lymph node assessment: Negative. Vessels: Negative. Musculoskeletal: No acute osseous findings. Scattered degenerative changes along the spine. Body wall: New midline abdominal wall incision with skin padmini in place. Small amount of hyperdens e blood products tracking along the superior aspect the superficial incision. Lung bases: Negative. IMPRESSION: 1. New surgical changes of a segmental sigmoid colonic resection with a diverting colostomy along the left abdominal wall. 2. There is mild dilatation of fluid-filled small bowel loops in the mid and upper abdomen with fluid levels. No discrete transition is identified. This may relate to a mild ileus. 3. There are small loculated fluid collections in the pelvis which may represent persistent or recurr ent abscess. Largest collection is located along the cul-de-sac and measures up to 4.8 cm. 4. Midline abdominal incision with a small amount of blood products along the superior aspect of the incision. 5. No other new intra-abdominal findings. Report Dictated By: Felipe Angulo MD at 12/28/2018 1:17 PM Report E-Signed By: Felipe Angulo MD at 12/28/2018 1:32 PM WSN:[id number]
--- NOTE | 2018-12-28 13:48 | NUR ---
Physical Therapy Impression Pt politely declined PT intervention as she has been up ambulating without difficulty with nursing. Pt reports log rolling is going better "to the other side" and denies any concerns about this technique. Physical Therapy Goals 1. SBA bed mobility vai log roll. 2. SBA transfers. 3. SBA gait x 150' with appropriate assistive device. 4. Ascend/descend 4 stairs with 1 rail SBA. Patient's Goals
--- NOTE | 2018-12-28 14:57 | Hospitalist Depart ---
Discharge Summary Reason for Hosp/Final Diag: (1) Diverticulitis Status: Acute Hospital Course & Plan: no obstruction on ct yesterday. pt now has ileus or sbo secondary to diverticulitis. plan: iv abx, ivf, ngt, npo, serial exams/labs/xrays. sbo will likely resolve with treatment of diverticulitis; however, we did discuss the possibility of surgery. 12/16/2018 Cont bowel rest and IV antibiotics for acute sigmoid diverticulitis. 12/17/2018 slow improvement, cont care plan as above. Repeat labs in am. 12/18/18: Decreasing abdominal pain, benign abdominal exam, WBC down this morning, no fevers. Continue current abx regimen for uncomplicated diverticulitis. 12/19/18: Improving. WBC same as yesterday at 16K but down from 2 days ago, will continue follow. Afebrile and VSS. Continue current abx regimen. 12/20/18: Abdominal exam is benign, still somewhat distended. WBC persistently elevated at 16K. Will repeat abdominal/pelvis CT with IV contrast today. Pt on sips of clears and tolerating it. Advised to continue moderating intake until flatus amount improves. Continue PPI, lovenox for prophylaxis. Continue IV abx until tolerating regular diet. 12/23/18: POD#2 s/p ex-lap with Gumaro's procedure, appendectomy, bladder repair by Dr. Espinoza (please refer to his op note and daily progress notes for details over the last 3 days). Pt seems to be doing well. WBC trending down, will follow. H/H down, she had some bleeding from her laparotomy wound that Dr. Espinoza opened and applied hemostatic agents yesterday. Will transfuse 2 Units pRBC and follow H/H. Will hold off on blood thinners until tomorrow and then restart if hemostatic. Continue PPI. OOB to chair and ambulate qid. PT/OT to evaluate and treat. Start TPN today as she hasn't eaten for over a week. Will start ice chips today. Will transfer to Med/Surg. 12/24/18: POD#3. Doing well. Start wound care. Stoma teaching. Continue current diet until more gas output from stoma. Continue TPN. Ambulation. Voltaren for back pain. WBC up to 26K today, will follow this; no fevers or tachycardia. H/H responded to 2Units pRBC, follow. Aggressive pulmonary hygiene, IS, ambulation, PT/OT, restart lovenox, continue PPI. 12/25/18: POD#4. Doing well. Start clear diet today. Stoma teaching. Continue wound care. Continue TPN until tolerating regular diet. Ambulation, PT/OT, lovenox, PPI, pulmonary hygiene. WBC coming down, 23K this morning, will follow. H/H stable. Will give lasix for edema and volume overload, will give concurrent potassium. Follow electrolytes. 12/26/18: POD#5. Doing well. Will start regular diet today. Continue TPN until tolerating diet. Continue stoma teaching. Ambulation, PT/OT, lovenox, PPI, pulmonary hygiene. WBC continues to trend down, will follow. H/H down a little, doubt bleeding, follow. Will give another round of lasix and potassium today. COntinue to follow this. 12/27/18: POD#6. Doing well. WBC SLOWLY coming down, will follow. H/H down this morning as well, follow, no other signs of hemorrhage. Tolerating regular diet. TPN to half rate today. Continue stoma teaching. Ambulation, PT/OT, lovenox, pulmonary hygiene, etc. Will give another round of lasix and potassium today. Will continue to follow electrolytes. Continue wound care. Keep styles in to keep bladder decompressed due to bladder repair. Dr. Lopez with Urology will manage removal of Styles. 12/28/18: POD#7 slow steady progress, though persistently elevated WBC. ABD CT ordered, if an abscess is amenable to percutaneous drainage may need transfer to [facility] or [facility] as IR not available here. 12/28/18: pt agreeable to transfer for perc drain of one or both abscesses. Case discussed with IR and Dr Yarbrough at [facility] who accepts in transfer. (2) SBO (small bowel obstruction) Status: Acute Hospital Course & Plan: 12/16/18 Pt required NGT decompression with high outputs over past 24 hours. Cont to LIS. KUB noted. Etiology indeterminate, reactive ileus vs mechanical sbo. Will consider SBFT if no improvement next 24 hours. 12/17/2018: NGT output less past 24 hours. Cont NGT until improved bowel function. Gentle [place] cathartics given her sigmoid inflammation per pt request. 12/18/18: Continuing decreasing NG tube output. Continue NG tube decompression and bowel rest and will await for signs of improved bowel function (flatus, less bloating, etc). 12/19/18: No flatus yet and KUB still with dilated small bowel without im provement when compared to 3 days ago. Will get SBFT today. Continue NG tube decompression, bowel rest, IV fluids, etc. If no improvement by tomorrow, will have PICC line placed and start TPN. 12/20/18: SBFT with gastrograffin to colon rapidly, no obstruction. Patient continues to pass contrast. SB dilation c/w ileus; not obstruction. Continue slow PO intake. 12/23/18: SBO due to perforated diverticulitis with phlegmon, relieved by surgery 2 days ago. 12/28/18: partial SBO on ABD CT scan with multiple dilated loops and AFL. Cont minimal PO diet as douglas as long as stoma has output. (3) Anemia Status: Acute Hospital Course & Plan: 12/23/18: Postop anemia from acute blood loss and hemodilution. Transfuse 2 Units pRBC today and follow H/H. (4) S/P bladder repair Status: Acute Hospital Course & Plan: Styles decompression of bladder for at least 2 weeks, being managed by Dr. Lopez with Urology. Departure Weight (Pounds): 242 Weight (Ounces): 8.0 Result Diagram: 12/28/1850912/28/18509 Condition: Improved Home Health RN Follow Up For: Cathether Care, Nursing Assessment, Wound Care, Other Discharge Instructions Home Meds Reported Medications Diclofenac Sodium (Diclofenac Sodium) 1 % Gel..gram., 2-4 G TOP QID TO PAINFUL JOINTS 12/16/18 Hydrochlorothiazide (HYDROCHLOROTHIAZIDE) 25 Mg Tablet, 1 TAB PO QDAY PRN SWELLING 12/16/18 Naproxen (NAPROXEN) 500 Mg Tablet.dr, 1 TAB PO BID PRN for PAIN 12/14/18 Albuterol Sulfate 90 Mcg/Act (PROAIR HFA 90 MCG/ACT) 8.5 Gm Hfa.aer.ad, 1 INH INH Q4H PRN for shortness of breath 12/14/18 Omeprazole (OMEPRAZOLE) 40 Mg Capsule.dr, 40 MG PO QDAY, CAP 08/19/18 Amlodipine Besylate (AMLODIPINE BESYLATE) 10 Mg Tablet, 1 TAB PO QDAY, TAB 08/19/18 Losartan/Hydrochlorothiazide (LOSARTAN-HCTZ 100-25 MG TAB) 1 Each Tablet, 1 EACH PO QDAY 08/19/18 Levothyroxine Sodium (SYNTHROID) 50 Mcg Tablet, 50 MCG PO QDAY, TAB 08/19/18 Mometasone/Formoterol (DULERA 200 MCG/5 MCG INHALER) 13 Gm Inh, 2 PUFF INH BID, INH 08/19/18 Montelukast Sodium (MONTELUKAST SODIUM) 10 Mg Tablet, 1 TAB PO QDAY, TAB 08/19/18 Venous Thromboembolism VTE Risk Physician Assess for VTE Risk: Yes Patient's VTE Risk: High VTE Diagnostic Test 2 Days Prior to Admit: No Antithrombotics Is Pt On Any Antithrombotics?: Yes Problem Qualifiers (1) Anemia: Anemia type: other cause Other causes of anemia: other cause, not classified Qualified Codes: D64.89 - Other specified anemias LUISA DE LA ROSA MD Dec 28, 2018 14:57
== END 2018-12-28 16:23 | disposition short-term general hospital (02) | DRG 329 ==
LOC: ER 08:45 → MED 10:48 → ICU 12-21 11:32 → MED 12-23 14:49
PROVIDERS: ADMIT Internal Medicine; ATTEND Internal Medicine
PROC: 0D9670Z Drainage of Stomach with Drainage Device, Via Natural or Artificial Opening (ICD-10-PCS; principal; 2018-12-15)
PROC: 0TQB0ZZ Repair Bladder, Open Approach (ICD-10-PCS; 2018-12-21)
PROC: 0DBN0ZZ Excision of Sigmoid Colon, Open Approach (ICD-10-PCS; 2018-12-23)
PROC: 0DBP0ZZ Excision of Rectum, Open Approach (ICD-10-PCS; 2018-12-23)
PROC: 0D1N0Z4 Bypass Sigmoid Colon to Cutaneous, Open Approach (ICD-10-PCS; 2018-12-23)
PROC: 30233N1 Transfusion of Nonautologous Red Blood Cells into Peripheral Vein, Percutaneous Approach (ICD-10-PCS; 2018-12-23)
PROC: 0DTJ0ZZ Resection of Appendix, Open Approach (ICD-10-PCS; 2018-12-23)
DX: K57.20 Diverticulitis of large intestine with perforation and abscess without bleeding (principal); K65.8 Other peritonitis; D62 Acute posthemorrhagic anemia; J90 Pleural effusion, not elsewhere classified; K56.50 Intestinal adhesions [bands], unspecified as to partial versus complete obstruction; N99.72 Accidental puncture and laceration of a genitourinary system organ or structure during other procedure; I10 Essential (primary) hypertension; E03.9 Hypothyroidism, unspecified; J45.909 Unspecified asthma, uncomplicated; Z87.891 Personal history of nicotine dependence; E87.6 Hypokalemia; R91.8 Other nonspecific abnormal finding of lung field; E87.70 Fluid overload, unspecified
CPT/HCPCS: 36415; 36416; 36573; 71045; 74018; 74177; 74178; 74250; 82040; 82247; 82310; 82374; 82435; 82565; 82947; 82948; 83690; 83735; 84075; 84132; 84155; 84295; 84450; 84460; 84520; 85014; 85018; 85025; 85610; 86140; 86677; 86850; 86900; 86901; 86920; 87071; 87073; 87077; 87186; 88304; 88305; 93005; 94640; 96374; 96375; 97161; 97165; 99284; C1751; C9113; J0131; J1100; J1170; J1650; J1815; J1885; J1940; J2001; J2060; J2250; J2270; J2405; J2543; J2704; J2765; J3010; J3480; J3490; J7030; J7040; J7050; P9016; P9045; Q9967; Q9968

== ENCOUNTER → 2018-12-28 | Outpatient (CLI) | payer OTHER ==
[~2018-12-28] MED LIST changes: +ALBU8.5H INH; +DICL100G7 TOP; +HYDR-2966 PO; +NAPR-733 PO; +OXYC5TAB38 PO
== END ==
LOC: AMB 16:10
PROVIDERS: ATTEND Nurse Practitioner
DX: L02.211 Cutaneous abscess of abdominal wall (principal)
CPT/HCPCS: A0425; A0426

== ENCOUNTER → 2019-01-07 | Outpatient (CLI) | payer OTHER ==
[~2019-01-07] MED LIST changes: +IOTHALAMATE MEGLU 172MG/ML BTL 250 ML IVPB ONE
--- NOTE | 2019-01-07 12:33 | RADIOLOGY IMAGING REPORT ---
FACILITY: [facility] - [place] PATIENT NAME: Sherron So : 1955 MR: [id number] V: [id number] EXAM DATE: ORDERING PHYSICIAN: MIR ALVAREZ TECHNOLOGIST: Location: [facility] [place] Patient: Sherron So : 1955 Visit/Account:[id number] Date of Sevice: 01/07/2019 Cystogram: HISTORY: Bladder injury 12/21/2018 Procedure/findings: Examination was performed by Dr. Alvarez. Per the technologist notes, 250 mL of Cy sto-Conray was instilled into the bladder via the Brown catheter. Images were obtained of the bladde r in both the AP and bilateral oblique projections. Post void image was also obtained. Cable Assembler film demonstrates nonspecific bowel gas pattern without evidence of ileus, obstruction or free air. Brown catheter seen in the bladder. With the bladder distended, there is no evidence of contrast extravasation to suggest an ongoing leak . Bladder contour is unremarkable. There are no filling defects. Post void image shows no residual contrast in the pelvis. There is no evidence of extravasation. IMPRESSION: 1. Negative cystogram for contrast extravasation. Bladder appears normal. 2. Results discussed with Dr. Alvarez 1224 hours, 01/07/2019. Report Dictated By: Parvin Carolina MD at 01/07/2019 12:21 PM Report E-Signed By: Parvin Carolina MD at 01/07/2019 12:25 PM WSN:[id number]
== END ==
LOC: RAD 10:36
DX: S37.23XA Laceration of bladder, initial encounter (principal)
CPT/HCPCS: 74430; Q9958

== ENCOUNTER → 2019-01-10 | Outpatient (CLI) | payer OTHER ==
[~2019-01-10] MED LIST changes: -IOTHALAMATE MEGLU 172MG/ML BTL 250 ML IVPB ONE
== END ==
LOC: LAB 15:33
PROVIDERS: ATTEND Nurse Practitioner Family
DX: K57.20 Diverticulitis of large intestine with perforation and abscess without bleeding (principal)
CPT/HCPCS: 36415; 82040; 82247; 82310; 82374; 82435; 82565; 82947; 84075; 84132; 84155; 84295; 84450; 84460; 84520; 85027